=== PATIENT | male | born 1940 | race Caucasian/White ===

== ENCOUNTER → 2024-05-14 | Outpatient (CLI) | payer MEDICARE, BC, OTHER, SELFPAY ==
[2024-05-14 11:26] LABS: Collection Type, Urine Clean Catch; Squamous Epithelial Cell,Urine 0 /hpf (0-5)
[2024-05-14 13:09] LABS: Bacteria,Urine 4+; Bilirubin,Urine Negative (Negative); Blood,Urine 1+ (Negative); Color,Urine Yellow (Lt Yel-Yel); Glucose, Urine Negative (Negative); Ketones,Urine Negative (Negative); Leukocyte Esterase,Urine Positive (Negative); Nitrite,Urine Negative (Negative); Protein,Urine 1+ (Neg - Trace); RBC,Urine 30 /hpf (0-3); Specific Gravity,Urine 1.021 (1.001-1.035); Urobilinogen,Urine Negative mg/dL (0.0-1.0); WBC,Urine 911 /hpf (0-5)
[2024-05-14 13:19] LABS: Clarity,Urine Cloudy (Clear/Hazy)
== END | disposition home or self-care (01) ==
LOC: SLDO 11:12
PROVIDERS: PCP Physician Assistant; Referring Provider Physician Assistant; Visit Provider Physician Assistant
DX: N39.0 Urinary tract infection, site not specified (principal)
CPT/HCPCS: 81001; 87077; 87086; 87186

== ENCOUNTER 2024-06-05 00:06 | Inpatient (IN) | payer MEDICARE, BC, OTHER, SELFPAY ==
[2024-06-05] VITALS (19 sets, daily range): BP systolic 112–132; BP diastolic 56–89; PULSE 65–106; RESP 15–19; TEMP 36.3–37.5; O2SAT 94–98; BMI 29.8
--- NOTE | 2024-06-05 01:34 | PD.EDLOWEX ---
Lower Extremity Injury RME/HPI General Chief Complaint: Extremity Injury, Lower Stated Complaint: rt leg swelling Time Seen by Provider: 06/05/24 01:32 Arrival date/time: 06/05/24 00:06 RME / HPI RME / HPI Narrative: Dr. Burns?s Main ED Evaluation: 83yo male with pmhx dementia, CVA, HTN, HLD BIBA from home presents to the ED for a chief complaint of BLE swelling. Patient's states the patient has a history of swelling to his BLE, but reports it's significantly gotten worse over the last 24 hours. She states the patient has had a dry cough x 1 week. She notes the home health nurse came in yesterday and shared concerns over his symptoms, so she called the patient's PCP and was told to have the patient come in for evaluation. denies any fever, chills, shortness of breath, sweating or any other associated symptoms. Patient is on Plavix, and takes Lasix every other day. Related Data Home Medications ?Medication ?Instructions ?Recorded ?Confirmed cyanocobalamin (vitamin B-12) 500 1,000 mcg PO QDAY 08/30/21 06/05/24 mcg tablet folic acid 1 mg tablet 1 mg PO QDAY 08/30/21 06/05/24 levothyroxine 50 mcg tablet 50 mcg PO QDAY 08/30/21 06/05/24 amlodipine 5 mg tablet 5 mg PO QMORNING 06/05/24 06/05/24 Previous Rx's ?Medication ?Instructions ?Recorded apixaban 5 mg (74 tabs) tablets in 5 mg PO BID #74 tabs 06/10/24 a dose pack (Eliquis DVT-PE Treat 30D Start) atorvastatin 40 mg tablet 40 mg PO HS #30 tabs 06/10/24 clopidogrel 75 mg tablet (Plavix) 75 mg PO QDAY #30 tabs 06/10/24 furosemide 20 mg tablet (Lasix) 20 mg PO QDAY #30 tabs 06/10/24 hydralazine 25 mg tablet 25 mg PO BID #30 tabs 06/10/24 potassium chloride 8 mEq 8 meq PO QDAY 30 days #30 caps 06/10/24 capsule,extended release Allergies Allergy/AdvReac Type Severity Reaction Status Date / Time horseradish Allergy Severe Anaphylaxis Verified 06/09/23 11:16 phytonadione (vitamin K1) AdvReac Severe SEVERE Verified 06/09/23 11:16 BLEEDING warfarin AdvReac Severe SEVERE Verified 06/09/23 11:16 BLEEDING Review of Systems Review of Systems Systems Reviewed: All systems reviewed, normal except as documented Narrative Review of Systems: Gen: No fever, no chills, no weight loss EYES: No discharge, no visual changes, no pain HEENT: No ear pain, no congestion, no sore throat PULM: No shortness of breath, + cough, no congestion CV: No chest pain, no dyspnea on exertion, no palpitations GI: No nausea, no vomiting, no diarrhea, no pain, no constipation : No frequency, no urgency, no dysuria Musc/skel: No joint pain, no back pain, + BLE swelling Skin: No rash Psyc: No hallucinations, no depression Heme/Lymph: No easy bleeding or bruising tendencies Neuro: No weakness, no headache Past Medical History Past Medical History NEUROLOGIC: Positive Neurological Disorders, Cerebrovascular Accident and Dementia CARDIAC: Positive Hypercholesterolemia, Deep Vein Thrombosis and Hypertension; Negative Cardiac Disorders or Congestive Heart Failure RESPIRATORY: Negative Chronic Obstructive Pulmonary Disease (COPD) or Asthma GASTROINTESTINAL: Positive Gastrointestinal Disorders and 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) GENITOURINARY: Negative Renal Disease ENDOCRINE: Negative Diabetes Mellitus Type 1 or Diabetes Mellitus Type 2 HEMATOLOGIC: Negative Sickle Cell Disease OTHER HISTORY: Negative Anesthesia Reactions Surgical History SURGICAL: Positive Gastric Bypass Surgery Social History SMOKING STATUS: Unknown if ever smoked SUBSTANCE USE: does not use ED Exam Narrative Physical exam: GENERAL APPEARANCE: alert and oriented x 4, well-developed, well-nourished, no acute distress HEENT: Normocephalic, atraumatic; pupils equal, round, reactive to light; EOMI; mucous membranes pink, moist; oropharynx clear NECK: Supple LUNGS: upper airway noise; no wheezes, no rales, no rhonchi HEART: Regular rate, regular rhythm; normal S1, S2; no murmurs ABDOMEN: non distended; normal BS; soft, no tenderness, no guarding, no rebound; no masses, no organomegaly, no hernia BACK: no CVA tenderness EXTREMITIES: atraumatic; 3+ pitting edema R>L; no erythema, tenderness or increased warmth NEUROLOGIC: awake; alert and oriented x4; cranial nerves II-XII grossly intact; no focal sensory or motor deficits PSYCHIATRIC: appropriate mood and affect SKIN: warm, dry, normal color; no rashes Course Course Course Narrative: CXR is ordered for determining the etiology of cough. 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 Care 06/05/24 02:13 Completed EKG (ED ONLY) *Do not use* NOW Care 06/05/24 02:13 Completed EKG (ED Only) Stat Exams 06/05/24 02:13 Draft US venous doppler LE BI Stat Exams 06/05/24 02:15 Completed XR chest 1V portable Stat Exams 06/05/24 02:13 Completed B-Type Natriuretic Peptide Stat Lab 06/05/24 02:52 Completed CBC Stat Lab 06/05/24 02:52 Completed Comprehensive Metabolic Panel Stat Lab 06/05/24 02:52 Completed Lipase Stat Lab 06/05/24 02:52 Completed Magnesium Stat Lab 06/05/24 02:52 Completed Partial Thromboplastin Time Stat Lab 06/05/24 02:52 Completed Prothrombin Time with INR Stat Lab 06/05/24 02:52 Completed Troponin I Stat Lab 06/05/24 02:52 Completed KCL 10% Liq UDC 15 ML Med 06/05/24 04:04 Discontinued 40 meq PO X1 ONE Vital Signs Vital signs: Vital Signs Temperature 98.9 F 06/05/24 00:16 Pulse Rate 69 06/05/24 00:16 Respiratory Rate 18 06/05/24 00:16 Blood Pressure 132/61 H 06/05/24 00:16 Pulse Oximetry (%) 96 06/05/24 00:16 Oxygen Delivery Method Room Air 06/05/24 00:16 Pulse ox is 96% on room air, which is normal according to my interpretation. Extremity Injury, Lower MDM Narrative MDM Narrative:: Scribe Attestation: 06/05/24 Valarie Borja am scribing for and in the presence of Dr. Burns. Patient data External records reviewed:: [facility] previous records (Per chart review, patient was seen here on 04/26/24 for a UTI.) Clinical information provided by:: spouse Social determinants that could affect healthcare access:: none Patient has the following chronic illnesses:: dementia, CVA, HTN, HLD How is presenting disease/condition affected by chronic disease/condition?: uneffected by Evaluation data The following diagnostics were reviewed and interpreted by me:: lab results, radiology exam(s) and EKG tracing(s) Lab and/or radiology exams considered but not ordered:: none Interpretation Summary: WBC count is normal, HnH is stable, PT and INR are normal, PTT is normal, Potassium is slightly low at 3.2, Troponin is normal, BNP is normal, according to my interpretation. CXR is rotated and shows mild interstitial infiltrates on the right, according to my interpretation. EKG done at 0249, aFib, rate of 71, occasional PVC, significant artifact, Q wave in lead III and V1, no acute ischemic changes, according to my interpretation. --------- Telerad Preliminary Report Draft Patient: ILEANA OROZCO. Record#: [id number] Birthdate: 1940 Age/Sex: 83 / M Location: [facility] Attending Dr: Ordering Physician: Date of Service: Procedure(s): Accession Number(s): cc: ~ Bilateral lower extremity venous Doppler ultrasound with wave Doppler spectral analysis. June 05, 2024 at 0325 hours Clinical history: Swelling. Technique: Duplex scan of the bilateral lower extremity deep venous systems was performed utilizing 2D grayscale imaging, Doppler spectral analysis and color flow Doppler and with compression. Comparison: No prior study is available for comparison. Findings: Mcnulty scale, color flow and spectral Doppler evaluation of the lower extremity deep veins was performed. Right: Occlusive thrombus extending from the common femoral vein through the superficial femoral vein and popliteal vein. Left: Occlusive thrombus extending through the common femoral vein, superficial femoral vein, and popliteal vein. Impression: Extensive bilateral deep vein thrombosis. Discussion Details: Results verbally communicated to : Dr Burns at 04:06 AM 06/05/2024 Report Electronically Signed By: Mando Valderrama 06/05/2024 4:27:23 AM [EST] Medications / Prescriptions Medications or Prescriptions considered but not ordered:: none Medication administrations:: Medication Administration History Discontinued Medications Acetaminophen (Acetaminophen 325 Mg Tablet) 650 mg PO Q6H PRN PRN Reason: Fever >101.5 Stop: 07/05/24 04:35 Albuterol/Ipratropium (Albuterol/Ipratropium (Duoneb) Rt [place] 3 Ml Nebu) 3 ml INH Q8HRRT NIRAV Stop: 07/05/24 15:44 Last Admin: 06/05/24 16:26 Dose: Not Given Documented By: VL Non-Admin Reason: Discontinued Albuterol/Ipratropium (Albuterol/Ipratropium (Duoneb) Rt [place] 3 Ml Nebu) 3 ml INH X1 ONE Stop: 06/05/24 16:02 Last Admin: 06/05/24 16:17 Dose: 3 ml Documented By: RG Albuterol/Ipratropium (Albuterol/Ipratropium (Duoneb) Rt [place] 3 Ml Nebu) 3 ml INH Q8HRRT NIRAV Stop: 07/05/24 21:59 Albuterol/Ipratropium (Albuterol/Ipratropium (Duoneb) Rt [place] 3 Ml Nebu) 3 ml INH Q8HRRT NIRAV Stop: 07/05/24 22:59 Last Admin: 06/10/24 14:59 Dose: 3 ml Documented By: Admin: 06/10/24 06:19 Dose: 3 ml Documented By: Admin: 06/09/24 22:45 Dose: 3 ml Documented By: Admin: 06/09/24 14:31 Dose: 3 ml Documented By: Admin: 06/09/24 06:23 Dose: 3 ml Documented By: Admin: 06/08/24 23:29 Dose: 3 ml Documented By: Admin: 06/08/24 14:30 Dose: 3 ml Documented By: Admin: 06/08/24 06:39 Dose: 3 ml Documented By: Admin: 06/07/24 23:16 Dose: 3 ml Documented By: Admin: 06/07/24 15:55 Dose: 3 ml Documented By: Admin: 06/07/24 06:55 Dose: 3 ml Documented By: Admin: 06/06/24 23:14 Dose: 3 ml Documented By: Admin: 06/06/24 14:42 Dose: 3 ml Documented By: Admin: 06/06/24 06:50 Dose: 3 ml Documented By: Admin: 06/05/24 22:15 Dose: 3 ml Documented By: VONDA Amlodipine Besylate (Amlodipine Besylate 5 Mg Tablet) 5 mg PO QAM [facility] Stop: 07/07/24 10:14 Last Admin: 06/10/24 08:28 Dose: 5 mg Documented By: Admin: 06/09/24 07:54 Dose: 5 mg Documented By: Admin: 06/08/24 08:00 Dose: 5 mg Documented By: Admin: 06/07/24 13:23 Dose: 5 mg Documented By: MGAlma Apixaban (Apixaban 2.5 Mg Tablet) 10 mg PO BID NIRAV Stop: 06/11/24 21:01 Last Admin: 06/06/24 08:27 Dose: 10 mg Documented By: Admin: 06/05/24 20:33 Dose: 10 mg Documented By: Admin: 06/05/24 08:22 Dose: 10 mg Documented By: KAROL Apixaban (Apixaban 2.5 Mg Tablet) 10 mg PO BID NIRAV Stop: 06/16/24 21:01 Last Admin: 06/10/24 14:29 Dose: 10 mg Documented By: FL Atorvastatin Calcium (Atorvastatin Calcium 20 Mg Tablet) 40 mg PO QPM NIRAV Stop: 07/07/24 20:59 Last Admin: 06/09/24 20:14 Dose: 40 mg Documented By: Admin: 06/08/24 20:51 Dose: 40 mg Documented By: Admin: 06/07/24 20:03 Dose: 40 mg Documented By: STEFF Carvedilol (Carvedilol 3.125 Mg Tablet) 6.25 mg PO BIDWM NIRAV Stop: 07/05/24 07:59 Last Admin: 06/05/24 08:27 Dose: Not Given Documented By: KAROL Non-Admin Reason: Discontinued Clopidogrel Bisulfate (Clopidogrel Bisulfate 75 Mg Tablet) 75 mg PO QDAY NIRAV Stop: 07/06/24 08:59 Last Admin: 06/06/24 08:28 Dose: 75 mg Documented By: LUCIAN Clopidogrel Bisulfate (Clopidogrel Bisulfate 75 Mg Tablet) 75 mg PO QDAY NIRAV Stop: 07/08/24 08:59 Last Admin: 06/10/24 08:29 Dose: 75 mg Documented By: Admin: 06/09/24 07:54 Dose: 75 mg Documented By: Admin: 06/08/24 10:01 Dose: 75 mg Documented By: ELIZABETH Donepezil HCl (Donepezil Hcl 5 Mg Tablet) 5 mg PO HS NIRAV Stop: 07/05/24 20:59 Last Admin: 06/08/24 20:51 Dose: 5 mg Documented By: Admin: 06/07/24 20:04 Dose: 5 mg Documented By: Admin: 06/06/24 20:41 Dose: 5 mg Documented By: Admin: 06/05/24 20:33 Dose: 5 mg Documented By: MUNIR Folic Acid (Folic Acid 1 Mg Tablet) 1 mg PO QDAY NIRAV Stop: 07/05/24 08:59 Last Admin: 06/10/24 08:29 Dose: 1 mg Documented By: Admin: 06/09/24 07:54 Dose: 1 mg Documented By: Admin: 06/08/24 08:00 Dose: 1 mg Documented By: Admin: 06/07/24 13:23 Dose: 1 mg Documented By: Admin: 06/06/24 08:28 Dose: 1 mg Documented By: Admin: 06/05/24 08:23 Dose: 1 mg Documented By: KAROL Furosemide (Furosemide Inj 10 Mg/Ml 4ml Vial) 40 mg IVP QDAY NIRAV Stop: 07/05/24 08:59 Furosemide (Furosemide 40 Mg Tablet) 20 mg PO Q48H NIRAV Stop: 07/06/24 08:29 Furosemide (Furosemide Inj 10 Mg/Ml Vial 2 Ml) 20 mg IVP QDAY NIRAV Stop: 07/05/24 09:59 Last Admin: 06/07/24 08:23 Dose: 20 mg Documented By: MGAlma Admin: 06/06/24 08:28 Dose: 20 mg Documented By: Admin: 06/05/24 11:00 Dose: 20 mg Documented By: KAROL Furosemide (Furosemide Inj 10 Mg/Ml Vial 2 Ml) 40 mg IVP QDAY NIRAV Stop: 07/08/24 08:59 Last Admin: 06/10/24 08:27 Dose: 40 mg Documented By: Admin: 06/09/24 07:55 Dose: 40 mg Documented By: Admin: 06/08/24 08:00 Dose: 40 mg Documented By: ELIZABETH Furosemide (Furosemide Inj 10 Mg/Ml Vial 2 Ml) 20 mg IVP X1 ONE Stop: 06/07/24 14:46 Last Admin: 06/07/24 15:30 Dose: 20 mg Documented By: MGAlma Furosemide (Furosemide Inj 10 Mg/Ml 4ml Vial) 40 mg IVP QDAY NIRAV Stop: 07/08/24 08:59 Heparin Sodium (Porcine) (Heparin Sod Inj 5000 Unit/Ml Vial) 8,000 unit IV X1 ONE; Protocol Stop: 06/06/24 13:45 Last Admin: 06/06/24 15:06 Dose: 8,000 unit Documented By: LUCIAN Co-signed By: ELIZABETH Hydralazine HCl (Hydralazine Hcl 25 Mg Tablet) 25 mg PO BID NIRAV Stop: 07/07/24 10:14 Last Admin: 06/10/24 08:29 Dose: 25 mg Documented By: Admin: 06/09/24 20:14 Dose: 25 mg Documented By: Admin: 06/09/24 07:54 Dose: 25 mg Documented By: Admin: 06/08/24 20:51 Dose: 25 mg Documented By: Admin: 06/08/24 08:00 Dose: 25 mg Documented By: Admin: 06/07/24 20:03 Dose: 25 mg Documented By: Admin: 06/07/24 13:22 Dose: 25 mg Documented By: MGAlma Potassium Chloride (Kcl Ivpb) 10 meq in 100 mls @ 100 mls/hr IV Q1H [facility] Stop: 06/05/24 06:57 Last Infusion: 06/05/24 07:29 Dose: Infused Documented By: Admin: 06/05/24 06:29 Dose: 100 mls/hr Documented By: Infusion: 06/05/24 06:15 Dose: Infused Documented By: Admin: 06/05/24 05:15 Dose: 100 mls/hr Documented By: MUNDO Magnesium Sulfate (Magnesium Sulfate Ivpb) 2 gm in 50 mls @ 25 mls/hr IV X1 ONE Stop: 06/06/24 10:01 Last Admin: 06/06/24 08:34 Dose: 25 mls/hr Documented By: LUCIAN Heparin Sodium/Dextrose (Heparin In D5w Ivpb) 25,000 unit in 250 mls @ 18.01 mls/hr IV .[id number] [facility]; Protocol Stop: 06/20/24 13:44 Last Admin: 06/10/24 11:49 Dose: 11.76 units/kg/hr, 11.899 mls/hr Documented By: FL Co-signed By: CS Infusion: 06/10/24 11:49 Dose: Infused Documented By: FL Co-signed By: CS Admin: 06/09/24 14:57 Dose: 11.76 units/kg/hr, 11.899 mls/hr Documented By: KD Co-signed By: CB Infusion: 06/09/24 12:09 Dose: Infused Documented By: NEIDA Co-signed By: ELIZABETH Admin: 06/08/24 20:59 Dose: Not Given Documented By: STACY Non-Admin Reason: heparin infusing Admin: 06/08/24 15:08 Dose: 11.76 units/kg/hr, 11.899 mls/hr Documented By: ELIZABETH Co-signed By: LH Infusion: 06/08/24 10:07 Dose: Infused Documented By: ELIZABETH Co-signed By: LH Infusion: 06/07/24 20:00 Dose: 11.76 units/kg/hr, 11.899 mls/hr Documented By: STEFF Co-signed By: Admin: 06/07/24 13:06 Dose: 11.76 units/kg/hr, 11.9 mls/hr Documented By: KAREL Co-signed By: JRR Infusion: 06/07/24 07:19 Dose: Infused Documented By: MGD Co-signed By: BF Infusion: 06/06/24 23:40 Dose: 14.8 units/kg/hr, 14.974 mls/hr Documented By: STACY Co-signed By: CG Admin: 06/06/24 15:09 Dose: 17.8 units/kg/hr, 18.01 mls/hr Documented By: LUCIAN Co-signed By: ELIZABETH Alteplase, Recombinant 4 mg/ (Sodium Chloride) 80 mls @ 14 mls/hr IV .Q5H43M NIRAV Stop: 06/07/24 17:12 Last Admin: 06/07/24 12:32 Dose: 0.7 mg/hr, 14 mls/hr Documented By: EC Alteplase, Recombinant 4 mg/ (Sodium Chloride) 80 mls @ 12 mls/hr IV .Q6H40M NIRAV Stop: 06/07/24 18:08 Last Admin: 06/07/24 12:24 Dose: 0.6 mg/hr, 12 mls/hr Documented By: EC Alteplase, Recombinant 4 mg/ (Sodium Chloride/ Sterile Water) 80 mls @ 14 mls/hr IV .Q5H43M NIRAV Stop: 06/10/24 11:29 Alteplase, Recombinant 4 mg/ (Sodium Chloride/ Sterile Water) 80 mls @ 12 mls/hr IV .Q6H40M [facility] Stop: 06/10/24 11:28 Alteplase, Recombinant 4 mg/ (Sodium Chloride/ Sterile Water) 80 mls @ 14 mls/hr IV .Q5H43M [facility] Stop: 06/10/24 11:29 Last Admin: 06/10/24 12:48 Dose: Not Given Documented By: FL Non-Admin Reason: MEDICATION IS DISCONTINUED Admin: 06/10/24 06:31 Dose: 0.7 mg/hr, 14 mls/hr Documented By: Infusion: 06/10/24 05:31 Dose: Infused Documented By: Admin: 06/09/24 23:48 Dose: 0.7 mg/hr, 14 mls/hr Documented By: Infusion: 06/09/24 22:05 Dose: Infused Documented By: Admin: 06/09/24 16:22 Dose: 0.7 mg/hr, 14 mls/hr Documented By: Infusion: 06/09/24 15:52 Dose: Infused Documented By: Admin: 06/09/24 10:09 Dose: 0.7 mg/hr, 14 mls/hr Documented By: Infusion: 06/09/24 10:09 Dose: Infused Documented By: Admin: 06/09/24 06:20 Dose: 0.7 mg/hr, 14 mls/hr Documented By: Infusion: 06/09/24 05:37 Dose: Infused Documented By: Admin: 06/08/24 23:54 Dose: 0.7 mg/hr, 14 mls/hr Documented By: Infusion: 06/08/24 22:22 Dose: Infused Documented By: Admin: 06/08/24 16:39 Dose: 0.7 mg/hr, 14 mls/hr Documented By: Infusion: 06/08/24 15:51 Dose: Infused Documented By: Admin: 06/08/24 10:08 Dose: 0.7 mg/hr, 14 mls/hr Documented By: Infusion: 06/08/24 10:08 Dose: Infused Documented By: Admin: 06/08/24 06:23 Dose: 0.7 mg/hr, 14 mls/hr Documented By: Infusion: 06/08/24 05:53 Dose: Infused Documented By: Admin: 06/08/24 00:10 Dose: 0.7 mg/hr, 14 mls/hr Documented By: Infusion: 06/07/24 23:19 Dose: Infused Documented By: Admin: 06/07/24 17:36 Dose: 0.7 mg/hr, 14 mls/hr Documented By: MGD Alteplase, Recombinant 4 mg/ (Sodium Chloride/ Sterile Water) 80 mls @ 12 mls/hr IV .Q6H40M NIRAV Stop: 06/10/24 11:28 Last Admin: 06/10/24 09:07 Dose: 0.6 mg/hr, 12 mls/hr Documented By: Infusion: 06/10/24 07:34 Dose: Infused Documented By: Admin: 06/10/24 00:53 Dose: 0.6 mg/hr, 12 mls/hr Documented By: Infusion: 06/09/24 23:03 Dose: Infused Documented By: Admin: 06/09/24 16:22 Dose: 0.6 mg/hr, 12 mls/hr Documented By: Infusion: 06/09/24 16:22 Dose: Infused Documented By: Admin: 06/09/24 10:09 Dose: 0.6 mg/hr, 12 mls/hr Documented By: Infusion: 06/09/24 10:09 Dose: Infused Documented By: Admin: 06/09/24 04:17 Dose: 0.6 mg/hr, 12 mls/hr Documented By: Infusion: 06/09/24 04:03 Dose: Infused Documented By: Admin: 06/08/24 21:22 Dose: 0.6 mg/hr, 12 mls/hr Documented By: Infusion: 06/08/24 21:22 Dose: Infused Documented By: Admin: 06/08/24 15:09 Dose: 0.6 mg/hr, 12 mls/hr Documented By: Infusion: 06/08/24 14:38 Dose: Infused Documented By: Admin: 06/08/24 07:57 Dose: 0.6 mg/hr, 12 mls/hr Documented By: Infusion: 06/08/24 07:35 Dose: Infused Documented By: Admin: 06/08/24 00:54 Dose: 0.6 mg/hr, 12 mls/hr Documented By: Infusion: 06/08/24 00:18 Dose: Infused Documented By: Admin: 06/07/24 17:37 Dose: 0.6 mg/hr, 12 mls/hr Documented By: KAREL Magnesium Sulfate (Magnesium Sulfate Ivpb) 2 gm in 50 mls @ 25 mls/hr IV X1 ONE Stop: 06/09/24 17:21 Last Admin: 06/09/24 16:22 Dose: 25 mls/hr Documented By: ELIZABETH Levothyroxine Sodium (Levothyroxine Sodium 25 Mcg Tablet) 50 mcg PO ACBR NIRAV Stop: 07/05/24 05:59 Last Admin: 06/10/24 05:26 Dose: 50 mcg Documented By: Admin: 06/09/24 05:02 Dose: 50 mcg Documented By: Admin: 06/08/24 05:39 Dose: 50 mcg Documented By: Admin: 06/07/24 05:41 Dose: 50 mcg Documented By: Admin: 06/06/24 05:23 Dose: 50 mcg Documented By: Admin: 06/05/24 05:25 Dose: 50 mcg Documented By: MUNDO Potassium Chloride (Potassium Chloride 10% 20 Meq/15 Ml Udc) 40 meq PO X1 ONE Stop: 06/05/24 04:05 Last Admin: 06/05/24 04:48 Dose: 40 meq Documented By: MUNDO Potassium Chloride (Potassium Chloride 20 Meq Tabcr) 40 meq PO X1 ONE Stop: 06/05/24 04:42 Last Admin: 06/05/24 04:48 Dose: Not Given Documented By: SF Non-Admin Reason: Discontinued Potassium Chloride (Potassium Chloride 20 Meq Tabcr) 20 meq PO WBR NIRAV Stop: 07/05/24 07:59 Last Admin: 06/10/24 08:29 Dose: 20 meq Documented By: Admin: 06/09/24 07:54 Dose: 20 meq Documented By: Admin: 06/08/24 07:58 Dose: 20 meq Documented By: Admin: 06/07/24 13:22 Dose: 20 meq Documented By: Admin: 06/06/24 08:27 Dose: 20 meq Documented By: Admin: 06/05/24 05:35 Dose: Not Given Documented By: SF Non-Admin Reason: Cancelled by Provider Potassium Chloride (Potassium Chloride 20 Meq Tabcr) 40 meq PO X1 ONE Stop: 06/06/24 10:01 Last Admin: 06/06/24 10:49 Dose: Not Given Documented By: EA Non-Admin Reason: Patient Refused Potassium Chloride (Potassium Chloride 20 Meq Tabcr) 20 meq PO X1 ONE Stop: 06/08/24 08:21 Last Admin: 06/08/24 10:01 Dose: 20 meq Documented By: CB Potassium Chloride (Potassium Chloride 20 Meq Tabcr) 20 meq PO X1 ONE Stop: 06/09/24 19:01 Last Admin: 06/09/24 20:14 Dose: 20 meq Documented By: CM Potassium Chloride (Potassium Chloride 20 Meq Tabcr) 40 meq PO X1 ONE Stop: 06/09/24 15:22 Last Admin: 06/09/24 16:23 Dose: 40 meq Documented By: CB Potassium Chloride (Potassium Chloride 10% 20 Meq/15 Ml Udc) 40 meq PO X1 ONE Stop: 06/10/24 08:18 Last Admin: 06/10/24 08:28 Dose: 40 meq Documented By: FL Potassium Chloride (Potassium Chloride 10% 20 Meq/15 Ml Udc) 20 meq PO X1 ONE Stop: 06/10/24 11:01 Last Admin: 06/10/24 11:50 Dose: 20 meq Documented By: FL Sennosides (Senna Tablet) 1 tab PO QDAY PRN; Protocol PRN Reason: CONSTIPATION Stop: 07/05/24 05:31 see above, if any Consultations Consultation(s) initiated? (list below): Yes Consultation #1 (Physician, Specialty, Details): Discussed case with [Dr. Mcdowell] from Hospitalist service regarding admission. Discussed patients ED course, exam findings, labs, and radiology results. The Hospitalist [agrees] to accept the patient for admission. Time: 04:16 Diagnosis Extremity Injury, Lower Differential Diagnosis: other (CHF, DVT, dependent edema) Most likely diagnosis given after review of the tests above:: see below Admission Indicated Admission indicated?: indicated Admission Request Was there a request for admission?: Yes Admission Attestation Admission request attestation: Discussed case with [] from Hospitalist service regarding admission. Discussed patients ED course, exam findings, labs, and radiology results. The Hospitalist [agrees,declines] to accept the patient for admission. Disposition Plan Disposition Plan: Admit Discharge Plan Plan Patient Disposition: Admit Acute Care w/in Hospital Patient condition on transfer: Stable Problem List Clinical Impression: DVT of lower extremity, bilateral
--- NOTE | 2024-06-05 02:13 | EKG_ITS ---
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
--- NOTE | 2024-06-05 02:13 | XR_ITS ---
Examination: AP chest single view Technique one AP portable semiupright chest single view Exam date and time: June 05, 2024 0228 hours Comparison 03/12/2024 INDICATIONS: Onset chest pain today FINDINGS: Atelectasis and/or early pneumonia left base Mild prominence left ventricle Ectatic thoracic aorta Prominent osteopenia IMPRESSION: Atelectasis and/or early pneumonia left base, clinical correlation advised
--- NOTE | 2024-06-05 02:15 | XR_ITS ---
Examination: Venous duplex lower extremity sonogram, bilateral. Date and time of exam: June 05, 2024 0325 hours INDICATIONS: Bilateral leg swelling beginning 2 days ago Technique: Multiple sonographic images of the deep venous system have been obtained. B-mode/2-D grayscale imaging of vascular structures and Doppler spectral analysis (waveforms) and color performed Both legs are examined. Findings: Positive for extensive bilateral deep vein thrombus Positive for acute thrombus in the right common femoral right superficial femoral right popliteal veins Positive for acute thrombus in the left common femoral left superficial femoral left popliteal veins IMPRESSION: Extensive bilateral acute deep vein thrombus
[2024-06-05 03:08] LABS: Basophils % (Auto) 1 % (0-2.5); Eosinophils # (Auto) 0.1 Thou/mm3 (0.0-0.5); Eosinophils % (Auto) 2 % (0-10); Hematocrit 30.6 % (41.0-53.0); Hemoglobin 9.9 g/dL (13.5-16.0); Immature Granulocytes % (Auto) 0 % (0-0); Immature Granulocytes Auto 0.01 Thou/mm3 (0.00-0.00); Lymphocytes # (Auto) 1.5 Thou/mm3 (1.0-4.8); Lymphocytes % (Auto) 28 % (10-50); Mean Corpuscular HGB Conc 32.4 g/dl (31.0-37.0); Mean Corpuscular Hemoglobin 26.3 pg (25.0-35.0); Mean Corpuscular Volume 81 fL (80-100); Monocytes # (Auto) 0.4 Thou/mm3 (0.0-0.8); Monocytes % (Auto) 7 % (0-12); Neutrophils # (Auto) 3.4 Thou/mm3 (1.8-7.7); Neutrophils % (Auto) 63 % (37-80); Nucleated Red Blood Cell % 0 /100 WBC (0); Platelet Count 300 Thou/mm3 (140-440); RDW Standard Deviation 52.4 fL (35.1-43.9); Red Blood Count 3.77 Miln/mm3 (4.50-5.90); White Blood Count 5.4 Thou/mm3 (3.8-10.6)
[2024-06-05 03:25] LABS: INR 1.1 (0.9-1.3); Partial Thromboplastin Time 28.7 Seconds (22.0-36.0); Prothrombin Time 11.7 Seconds (9.0-12.2)
[2024-06-05 03:27] LABS: B-Type Natriuretic Peptide 51 pg/mL (0-100)
[2024-06-05 03:28] LABS: Alanine Aminotransferase 13 U/L (10-49); Albumin, Serum 3.4 gm/dL (3.4-4.8); Albumin/Globulin Ratio 1.4 (1.2-2.2); Alkaline Phosphatase 85 U/L (46-116); Anion Gap 7 (7-16); Aspartate Amino Transferase 14 U/L (0-34); BUN/Creatinine Ratio 11 Ratio (12-20); Bilirubin,Total 0.6 mg/dL (0.3-1.2); Blood Urea Nitrogen 11 mg/dL (9-23); Calcium 8.8 mg/dL (8.3-10.6); Calcium (Corrected) 9.3 mg/dL (8.5-10.1); Carbon Dioxide 27.2 mMol/L (20.0-31.0); Chloride 106 mMol/L (98-107); Estimated Creatinine Clearance 66.1 mL/min (>60); Globulin 2.4 gm/dL (2.3-3.5); Glucose 103 mg/dL (74-106); Lipase 50 U/L (12-53); Osmolality,Calculated 278 (275-295); Potassium 3.2 mMol/L (3.4-5.1); Sodium 140 mMol/L (136-145); Total Protein 5.8 gm/dL (5.7-8.2); Troponin I < 0.020 ng/mL (0.0-0.045); eGFR > 60 See Note
--- NOTE | 2024-06-05 04:28 | PRELIM_ITS ---
Bilateral lower extremity venous Doppler ultrasound with wave Doppler spectral analysis. June 05, 2024 at 0325 hours Clinical history: Swelling. Technique: Duplex scan of the bilateral lower extremi ty deep venous systems was performed utilizing 2D grayscale imaging, Doppler spectral analysis and co alicia flow Doppler and with compression. Comparison: No prior study is available for comparison. Findi ngs:Mcnulty scale, color flow and spectral Doppler evaluation of the lower extremity deep veins was perf ormed.Right: Occlusive thrombus extending from the common femoral vein through the superficial femora l vein and popliteal vein.Left: Occlusive thrombus extending through the common femoral vein, superfi cial femoral vein, and popliteal vein.Impression:Extensive bilateral deep vein thrombosis.Discussion Details: Results verbally communicated to : Dr Burns at 04:06 AM 06/05/2024 Report Electronically Signed By: Mando Valderrama 06/05/2024 4:27:23 AM [EST]
[2024-06-05] MEDS: POTASSIUM CHLORIDE 10% 20 MEQ/15 ML UDC 40 MEQ PO (04:48)
--- NOTE | 2024-06-05 04:55 | EVENTNT_ITS ---
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 He presented to the emergency department with a 2-day history of worsening bilateral leg swelling. His noted that the swelling significantly worsened between 7:30 PM and 10:00 PM on the day of presentation. She contacted the patient?s primary care physician, who recommended evaluation in the emergency department. The patient has a history of extensive DVT, initially diagnosed 20+ years ago, at which time he was started on anticoagulation therapy. An IVC filter was placed around 2009 and remains in situ. The patient was previously on Eliquis, which was discontinued approximately a year ago due to concerns related to his aortic aneurysm. Since then, he has been maintained on Plavix, which appears to be insufficient in preventing recurrent thrombotic events. The patient also experiences intermittent dyspnea, which his attributes to mild heart failure. He takes Lasix at home every other day, with the last dose administered this morning. He has been using a Gallagher catheter since February 2024 due to urinary retention following a prior stroke. The patient denies chest pain but demonstrates signs of functional decline, including limited mobility and cognitive impairment. He can walk with assistance but has become increasingly weak due to recurrent hospitalizations and the burden of his chronic conditions. In the emergency department, his vital signs were as follows: blood pressure 132/91 mmHg, temperature 98.9?F, heart rate 69 bpm, and respiratory rate 18 breaths per minute. Laboratory tests revealed a hemoglobin level of 9.9 g/dL and a potassium level of 3.2 mmol/L. A DVT ultrasound showed extensive bilateral DVT. The patient will be admitted for further observation and management.
--- NOTE | 2024-06-05 04:58 | ESHP_ITS ---
Documentation for date of: 06/05/24 HPI History of Present Illness Chief complaint: Lower extremity swelling History of present illness: 83-year-old male patient with past medical history for dementia, atrial fibrillation, CVA, uncontrolled hypertension, history of multiple DVT s/p IVC filter, hypothyroidism, BPH was brought to ED for bilateral lower extremity swelling. 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 Per patient's , patient has been having lower extremity swelling for the past 2 days; as result, patient's PCP was called who requested the patient be seen in the emergency room. Per patient's , he is able to ambulate about 100 feet using a walker for assistance; however, he has been bedbound recently. Of note, patient was admitted sometime in October 2023 with episode of syncope; however, workup was largely negative. At that time, EEG just showed dementia pattern but no seizure activity. CT imaging studies identified ascending, thoracic aortic aneurysm measuring 4.7 cm, and the patient was told to follow-up outpatient with cardiology; last ECHO states it currently measures 3.7cm. Patient also has a Gallagher catheter prior to presenting to the emergency room; it was placed secondary to chronic urinary retention. Medical history: As stated above Surgical history: Heel spur, neck surgery Allergies: Horseradish causes anaphylaxis, phytonadione, warfarin cause severe bleeding Medications: Pending med rec Family history: Noncontributory Social history: Patient currently lives with his who is also his senior quantity surveyor; denies alcohol, smoking or illicit drug use ROS: Unable to assess as the patient has dementia In the ED, patient presented mildly hypertensive 132/61, heart rate 69, respiratory rate 18, afebrile satting 96 on room air. Pertinent lab findings included hemoglobin 9.9 (MCV 81), potassium 3.2, troponin within normal limits, BNP 51, lipase 50. EKG shows atrial fibrillation with SVR. Chest x-ray does not show any signs of acute pneumonia but there is some interstitial markings on the right lower lung field continue. Venous Doppler study shows extensive severe bilateral DVT. Patient will be admitted to monitor for DVT progression and started on Eliquis anticoagulation; will also be given IV diuretics for heart failure exacerbation. Exam Vital Signs Temp Pulse Resp BP Pulse Ox O2 Del Method 98.9 F 80 16 122/65 95 Room Air 06/05/24 00:16 06/05/24 03:03 06/05/24 03:00 06/05/24 03:00 06/05/24 03:00 06/05/24 03:00 Narrative Exam Physical Exam: GENERAL: Awake, not answering questions appropriately, answers with yes or no but usually no answer, appears stated age. HEENT: NC/AT. Moist mucosa. PERRLA/EOMI. CARDIO: Irregularly irregular, no obvious murmurs, no JVD. PULM: No coughing or visible SOB. Lungs CTA B/L upper airway rhonci. GI: Abdomen soft, NT/ND, +BS. URO/REAL ESTATE REP: +Gallagher catheter. SKIN/MSK/EXT: +2 pitting edema noted up to hips bilaterally. Lower extremities grossly edematous. No wounds/rashes/amputations noted. +Pedal pulses present B/L. NEURO: Oriented x0 2/2 dementia (patient could not answer name, place or purpose). Results: Labs 06/05/24 02:52 06/05/24 02:52 Labs: Short CBC 06/05/24 Range/Units 02:52 WBC 5.4 (3.8-10.6) Thou/mm3 Hgb 9.9 L (13.5-16.0) g/dL Hct 30.6 L (41.0-53.0) % Plt Count 300 (140-440) Thou/mm3 BMP 06/05/24 02:52 Sodium 140 Potassium 3.2 L Chloride 106 Carbon Dioxide 27.2 BUN 11 Creatinine 1.0 Glucose 103 Calcium 8.8 Cardiac Enzymes 06/05/24 Range/Units 02:52 Troponin I < 0.020 (0.0-0.045) ng/mL Liver Function 06/05/24 Range/Units 02:52 Total Bilirubin 0.6 (0.3-1.2) mg/dL AST 14 (0-34) U/L ALT 13 (10-49) U/L Alkaline Phosphatase 85 (46-116) U/L Albumin 3.4 (3.4-4.8) gm/dL Quality Measures Quality Measures none Advance care planning discussed with:: spouse Medications Home Medications and Allergies Home Medications ?Medication ?Instructions ?Recorded ?Confirmed ?Type atorvastatin 80 mg tablet 40 mg PO QPM 08/30/21 11/07/22 History cyanocobalamin (vitamin B-12) 500 1,000 mcg PO QDAY 08/30/21 11/07/22 History mcg tablet donepezil 5 mg tablet 2.5 mg PO QDAY 08/30/21 11/07/22 History folic acid 1 mg tablet 1 mg PO QDAY 08/30/21 11/07/22 History levothyroxine 50 mcg tablet 50 mcg PO QDAY 08/30/21 11/07/22 History valsartan 320 mg tablet 160 mg PO BID 08/30/21 11/07/22 History quetiapine 25 mg tablet (Seroquel) 25 mg PO Q12HR 11/07/22 11/07/22 History Allergies Allergy/AdvReac Type Severity Reaction Status Date / Time horseradish Allergy Severe Anaphylaxis Verified 06/09/23 11:16 phytonadione (vitamin K1) AdvReac Severe SEVERE Verified 06/09/23 11:16 BLEEDING warfarin AdvReac Severe SEVERE Verified 06/09/23 11:16 BLEEDING Visit Medications Acetaminophen (Acetaminophen 325 Mg Tablet) 650 mg PO Q6H PRN PRN Reason: Fever >101.5 Stop: 07/05/24 04:35 Apixaban (Apixaban 2.5 Mg Tablet) 10 mg PO BID NIRAV Stop: 06/11/24 21:01 Carvedilol (Carvedilol 3.125 Mg Tablet) 6.25 mg PO BIDWM NIRAV Stop: 07/05/24 07:59 Donepezil HCl (Donepezil Hcl 5 Mg Tablet) 5 mg PO HS NIRAV Stop: 07/05/24 20:59 Folic Acid (Folic Acid 1 Mg Tablet) 1 mg PO QDAY NIRAV Stop: 07/05/24 08:59 Furosemide (Furosemide Inj 10 Mg/Ml 4ml Vial) 40 mg IVP QDAY NIRAV Stop: 07/05/24 08:59 Levothyroxine Sodium (Levothyroxine Sodium 25 Mcg Tablet) 50 mcg PO ACBR NIRAV Stop: 07/05/24 05:59 Potassium Chloride (Potassium Chloride 20 Meq Tabcr) 20 meq PO WBR NIRAV Stop: 07/05/24 07:59 Discontinued Medications Potassium Chloride (Potassium Chloride 10% 20 Meq/15 Ml Udc) 40 meq PO X1 ONE Stop: 06/05/24 04:05 Last Admin: 06/05/24 04:48 Dose: 40 meq Potassium Chloride (Potassium Chloride 20 Meq Tabcr) 40 meq PO X1 ONE Stop: 06/05/24 04:42 Last Admin: 06/05/24 04:48 Dose: Not Given Assessment & Plan Plan 83-year-old male patient with past medical history for dementia, atrial fibrillation, CVA, uncontrolled hypertension, history of multiple DVT s/p IVC filter, hypothyroidism, BPH was brought to ED for bilateral lower extremity swelling will be admitted to monitor for DVT progression and started on Eliquis anticoagulation; will also be given IV diuretics for heart failure exacerbation. #Extensive Bilateral DVT #History of DVT s/p IVC filter Patient has hx of DVT in the past as noted above Presenting with two days of worsening lower extremity edema per On exam patient has grossly edematous bilateral lower extremities Dopple U/S of lower extremities confirms presence of severe b/l DVT Plan: Started patient on Eliquis 10mg po qday (eGFR >60 and weight >99.7kg - no contraindications) Tele monitor #Fluid Overloaded #Diastolic Heart Failure Exacerbation #Ascending Aorta Aneurysm Patient presenting with b/l lower extremity swelling likely 2/2 to both DVT and possible HF exacerbation +2 pitting edema up to b/l hips noted on exam Last ECHO from 03/12/24 shows: Normal LV size and function. Stage I diastolic dysfunction. Estimated EF 55-60% Normal RV size and function The acending aorta is mildly dilated. 3.7cm. Trace MR, TR. 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 Mcintyre outpatient who started patient on Plavix 75mg po qday and Lasix 20mg po qday Pending Med rec from who was not bedside during examination Plan: Restarted Coreg home dose 6.25mg po bid Restarted Levothyroxine home dose 50mcg po qday Hospital Management: Lines - PIV and Gallagher Diet - Cardiac Bowel - Senna prn Gi prophylaxis - not needed DVT prophylaxis - on Eliquis Dispo - Monitoring for DVT progression, tele monitoring for afib and IV diuretics for possible HF exacerbation Code - Full Patient seen and examined with attending Dr. Mcdowell and senior resident Dr. Modesta Pacheco, PGY-1 Attending Provider Attestation/Addendum Pt was evaluated and plan formulated together with the housestaff team. I have reviewed the residents note above and agree with most of its content. Please refer to the residents note for additional details.
[2024-06-05] MEDS: POTASSIUM CHL 10 mEq IVPB 10 MEQ/100 ML BAG 100 MEQ IV ×2 (05:15→06:29)
[2024-06-05] MEDS: LEVOTHYROXINE SODIUM 25 MCG TABLET 50 MCG PO (05:25)
[2024-06-05] MEDS: APIXABAN 2.5 MG TABLET 10 MG PO ×2 (08:22→20:33)
[2024-06-05] MEDS: FOLIC ACID 1 MG TABLET PO (08:23)
--- NOTE | 2024-06-05 10:12 | PC.NURSE ---
Spoke to patient's over the phone to complete past medical history and vaccination history for patient. I let know I already updated patient's home medication and updated Dr on her request to discontinue Carvedilol. Also let her know patient already received morning dose of eliquis po. asked if Dr Valladares had already been in to see patient. I let her know Dr Valladares does not round on patient's in this hospital. I explained patient is assigned to a team of [facility] here at the hospital. was very upset and said no one ever explained how the system worked in the hospital, she said I don't want a stranger putting their hands on my , I don't trust anybody there! was under the impression her would be under Dr Valladares's care during this hospitalization. said she would be calling Dr Valladares herself to come in and check on her . I updated Dr Horowitz at bedside along with team. Team will call and update her on care.
[2024-06-05 10:16] LABS: Magnesium 1.9 mg/dL (1.6-2.6); Phosphorous 3.6 mg/dL (2.4-5.1)
[2024-06-05] MEDS: FUROSEMIDE INJ 10 MG/ML VIAL 2 ML 20 MG IVP (11:00)
--- NOTE | 2024-06-05 11:20 | ESPR_ITS ---
<Statement entered by Caesar Garcia MD - 06/05/24 14:35> Patient was seen and examined at bedside. This patient 83-year-old male with past medical history of dementia, A-fib, CVA, uncontrolled hypertension, history of multiple DVTs s/p IVC filter, hypothyroidism and BPH admitted for extensive bilateral DVT seen on Doppler lower extremity. He was started on Eliquis 10 mg twice daily and was started on his heart failure medications. He is demented however is conversational and responsive to the questions. He had marked lower extremity swelling and pain. Patient has a history of IVC filter placed for recurrent DVTs. We started him on IV Lasix 20 mg. Will curbside with neurology regarding Plavix continuation along with Eliquis as patient was taking Plavix for CVA. Electrolytes were repleted. All labs and orders were reviewed. I saw and examined the patient, and I agree with current management stated by Dr Matt MD,PGY1. Plan of care was discussed with the attending physician and resident physician. Disclaimer: Despite multiple revisions, due to the dictation software being used, the document bellow may not be free of grammatical errors including phonetic/typographic errors. However, this does not deter from our commitment to providing health care in the patient's best interest in mind. Dr. Radha MD, PGY 2 Documentation for date of: 06/05/24 Subjective Subjective Interval history: Patient seen and examined telemetry this a.m. Patient no overnight events Patient repeats the word good to any questions asked Venous Doppler was significant for bilateral lower limb DVTs and patient was started on apixaban 10 Mg p.o. twice daily EKG was significant for atrial fibrillation with rate 71, no acute ST elevation or depression. K3.2 and Mg 2. Patient repleted with KCl 80 mEq p.o. x 1 and magnesium sulfate 2 g IV x 1 Exam Vital Signs Temp Pulse Resp BP Pulse Ox O2 Del Method 97.7 F 85 18 122/68 94 L Room Air 06/05/24 07:46 06/05/24 11:00 06/05/24 07:46 06/05/24 11:00 06/05/24 07:46 06/05/24 07:46 Narrative Exam Physical Exam: GENERAL: Awake, not answering questions appropriately, answers with yes or no but usually no answer, appears stated age. HEENT: NC/AT. Moist mucosa. PERRLA/EOMI. CARDIO: Irregularly irregular, no obvious murmurs, no JVD. PULM: No coughing or visible SOB. Lungs CTA B/L upper airway transmitted sounds GI: Abdomen soft, NT/ND, +BS. 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 SKIN/MSK/EXT: +2 pitting edema noted up to hips bilaterally. Lower extremities grossly edematous. No wounds/rashes/amputations noted. +Pedal pulses present B/L. NEURO: Oriented x0 2/2 dementia (patient could not answer name, place or purpose). Left-sided hemiplegia. Power 1/5 LLL, power 2/5 ZOILA, power 3/5 RLL, power 4/5 RUL Objective Labs 06/06/24 05:08 06/06/24 05:08 Labs: Laboratory Results - last 24 hr 06/05/24 06/05/24 02:52 02:58 WBC 5.4 RBC 3.77 L Hgb 9.9 L Hct 30.6 L MCV 81 MCH 26.3 MCHC 32.4 RDW Std Deviation 52.4 H Plt Count 300 Neut % (Auto) 63 Lymph % (Auto) 28 [place] % (Auto) 7 Eos % (Auto) 2 Baso % (Auto) 1 Neut # (Auto) 3.4 Lymph # (Auto) 1.5 [place] # (Auto) 0.4 Eos # (Auto) 0.1 Baso # (Auto) 0.0 Immature Gran # (Auto) 0.01 H Absolute Nucleated RBC 0.00 Immature Gran % 0 Nucleated RBC % 0 PT 11.7 INR 1.1 APTT 28.7 Sodium 140 Potassium 3.2 L Chloride 106 Carbon Dioxide 27.2 Anion Gap 7 BUN 11 Creatinine 1.0 Estim Creat Clear Calc 66.1 eGFR > 60 BUN/Creatinine Ratio 11 L Glucose 103 Calculated Osmolality 278 Calcium 8.8 Corrected Calcium 9.3 Phosphorus 3.6 Magnesium 2.0 1.9 Total Bilirubin 0.6 AST 14 ALT 13 Alkaline Phosphatase 85 Troponin I < 0.020 B-Natriuretic Peptide 51 Total Protein 5.8 Albumin 3.4 Globulin 2.4 Albumin/Globulin Ratio 1.4 Lipase 50 Quality Measures Quality Measures none Advance care planning discussed with:: other Assessment & Plan Assessment Current Active Medications: Generic Name Dose Route Start Last Admin Trade Name Freq PRN Reason Stop Dose Admin Acetaminophen 650 mg 06/05/24 04:36 Acetaminophen 325 Mg Tablet PO 07/05/24 04:35 Q6H PRN Fever >101.5 Apixaban 10 mg 06/05/24 09:00 06/05/24 08:22 Apixaban 2.5 Mg Tablet PO 06/11/24 21:01 10 mg BID NIRAV Administration Donepezil HCl 5 mg 06/05/24 21:00 Donepezil Hcl 5 Mg Tablet PO 07/05/24 20:59 HS NIRAV Folic Acid 1 mg 06/05/24 09:00 06/05/24 08:23 Folic Acid 1 Mg Tablet PO 07/05/24 08:59 1 mg QDAY NIRAV Administration Furosemide 20 mg 06/05/24 10:00 06/05/24 11:00 Furosemide Inj 10 Mg/Ml Vial 2 Ml IVP 07/05/24 09:59 20 mg QDAY NIRAV Administration Levothyroxine Sodium 50 mcg 06/05/24 06:00 06/05/24 05:25 Levothyroxine Sodium 25 Mcg Tablet PO 07/05/24 05:59 50 mcg ACBR NIRAV Administration Potassium Chloride 20 meq 06/05/24 08:00 06/05/24 05:35 Potassium Chloride 20 Meq Tabcr PO 07/05/24 07:59 Not Given WBR NIRAV Sennosides 1 tab 06/05/24 05:32 Senna Tablet PO 07/05/24 05:31 QDAY PRN CONSTIPATION Protocol Plan 3-year-old male patient with past medical history for dementia, atrial fibrillation, CVA, uncontrolled hypertension, history of multiple DVT s/p IVC filter, hypothyroidism, BPH was brought to ED for bilateral lower extremity swelling will be admitted to monitor for DVT progression and started on Eliquis anticoagulation; will also be given IV diuretics for heart failure exacerbation. #Extensive Bilateral DVT #History of DVT s/p IVC filter #Chronic lower extremity venous insufficiency Patient has hx of DVT in the past with [place]C [place] [address] Kelly. Presenting with two days of worsening lower extremity edema per On exam patient has grossly edematous bilateral lower extremities Doppler U/S of lower extremities confirms presence of severe b/l DVT According to patient's in 2016 at [facility] he had IV sclerotherapy with venous stripping of the lower extremity varicose veins bilaterally. Plan: ?Continue Eliquis 10mg po qday (eGFR >60 and weight >99.7kg - no contraindications) ?Tele monitor ? Will consider possible vascular consult tomorrow for evaluation for possible thrombectomy # Acute on chronic diastolic Heart Failure Exacerbation [EF 55-60% #Ascending Aorta Aneurysm Patient presenting with b/l lower extremity swelling likely 2/2 to both DVT and possible HF exacerbation +2 pitting edema up to b/l hips noted on exam Last ECHO from 03/12/24 shows: Normal LV size and function. Stage I diastolic dysfunction. Estimated EF 55-60% Normal RV size and function The acending aorta is mildly dilated. 3.7cm. Trace MR, TR. Plan: ? Strict input output charting ? Daily weights ? 2G sodium restricted diet ? 1500 cc fluid restriction ? Discontinued Lasix 40 Mg IV daily and started on Lasix 20 Mg IV daily ? Follow-up outpatient for AAA monitoring #Atrial Fibrillation, SVR CHADVASc score of 6 (Age >85, hypertension, CVA, vascular disease) Patient has one prior EKG from February showing atrial fibrillation Currently presenting with irregular heart rate but with SVR Plan: ? Patient on anticoagulation with Eliquis ? 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 Mcintyre outpatient who started patient on Plavix 75mg po qday and Lasix 20mg po every other day Patient's states that after his first 2 strokes in 2000 in 2015 he had no functional or memory deficits. However after his stroke in February 2024 he was left bedbound with severe dysarthria. Plan: ? Continue levothyroxine home dose 50mcg po qday ? Restarted home medication Plavix 75 Mg p.o. daily for stroke prophylaxis Health maintenance: Disposition: On apixaban for extensive B/L lower extremity DVT Diet: Cardiac Lines: pIVs GI Prophylaxis: None Thrombo Prophylaxis: Apixaban Code status: FULL CODE Plan of care discussed with Attending Dr. Horowitz and PGY2 Dr. Radha Gutierrez MD PGY 1 Attending Provider Attestation/Addendum I have discussed and was present for the essential components of the history, physical examination, diagnosis, and treatment plan with the resident. I agree with the patient's care as documented by the resident and amended herein by me. Kiko Horowitz, DO. Although this document has been carefully reviewed, there may still be some phonetic and other typographical errors. These errors are purely grammatical due to imperfections in the software program and should not be construed in any way to compromise the substance of the patient's medical care during this visit.
--- NOTE | 2024-06-05 11:51 | PC.SS ---
Patient Diony Nelson is a 83 Year old male admitted for DVT. SS spoke to patient's , Eduarda Nelson in order to complete initial assessment. Patient resides at home with who is patients medical decision maker [phone]. Patient's patient has Dementia. Patient utilizes as FWW to assist with ambulation. Patient's choice of pharmacy is [facility]. PCP is Mary Kate Valladares. Patient's reports patient was being followed by Katie BOLTON and would like for Katie to continue to follow patient. At time of discharge patient will return back home. Patient's will provide transportation. Next of Kin: , Eduarda Nelson Discharge plan: Home with Katie BOLTON
[2024-06-05 15:02] LABS: Potassium 3.5 mMol/L (3.4-5.1)
[2024-06-05] MEDS: ALBUTEROL/IPRATROPIUM (Duoneb) RT SOL 3 ML NEBU INH ×2 (16:17→22:15)
[2024-06-05] MEDS: DONEPEZIL HCL 5 MG TABLET PO (20:33)
[2024-06-06] VITALS (10 sets, daily range): BP systolic 109–140; BP diastolic 54–76; PULSE 61–89; RESP 17–21; TEMP 36.2–37.6; O2SAT 92–97; BMI 30.2; BMI 12.0
[2024-06-06] MEDS: LEVOTHYROXINE SODIUM 25 MCG TABLET 50 MCG PO (05:23)
[2024-06-06 05:36] LABS: Basophils % (Auto) 1 % (0-2.5); Eosinophils # (Auto) 0.1 Thou/mm3 (0.0-0.5); Eosinophils % (Auto) 1 % (0-10); Hematocrit 26.9 % (41.0-53.0); Immature Granulocytes % (Auto) 0 % (0-0); Immature Granulocytes Auto 0.01 Thou/mm3 (0.00-0.00); Lymphocytes # (Auto) 1.7 Thou/mm3 (1.0-4.8); Lymphocytes % (Auto) 35 % (10-50); Mean Corpuscular HGB Conc 31.6 g/dl (31.0-37.0); Mean Corpuscular Hemoglobin 25.7 pg (25.0-35.0); Mean Corpuscular Volume 81 fL (80-100); Monocytes # (Auto) 0.3 Thou/mm3 (0.0-0.8); Monocytes % (Auto) 6 % (0-12); Neutrophils # (Auto) 2.8 Thou/mm3 (1.8-7.7); Neutrophils % (Auto) 57 % (37-80); Nucleated Red Blood Cell % 0 /100 WBC (0); Platelet Count 289 Thou/mm3 (140-440); RDW Standard Deviation 52.4 fL (35.1-43.9); Red Blood Count 3.31 Miln/mm3 (4.50-5.90); White Blood Count 4.9 Thou/mm3 (3.8-10.6)
[2024-06-06 05:41] LABS: Hemoglobin 8.5 g/dL (13.5-16.0)
[2024-06-06 06:13] LABS: Anion Gap 6 (7-16); BUN/Creatinine Ratio 13 Ratio (12-20); Blood Urea Nitrogen 14 mg/dL (9-23); Calcium 8.2 mg/dL (8.3-10.6); Chloride 105 mMol/L (98-107); Creatinine (Component) 1.1 mg/dL (0.6-1.3); Estimated Creatinine Clearance 60.1 mL/min (>60); Glucose 91 mg/dL (74-106); Magnesium 1.8 mg/dL (1.6-2.6); Osmolality,Calculated 278 (275-295); Phosphorous 3.2 mg/dL (2.4-5.1); Potassium 3.5 mMol/L (3.4-5.1); Sodium 139 mMol/L (136-145); eGFR > 60 See Note
[2024-06-06] MEDS: ALBUTEROL/IPRATROPIUM (Duoneb) RT SOL 3 ML NEBU INH ×3 (06:50→23:14)
[2024-06-06 08:27] LABS: Albumin, Serum 3.2 gm/dL (3.4-4.8)
[2024-06-06] MEDS: APIXABAN 2.5 MG TABLET 10 MG PO (08:27)
[2024-06-06] MEDS: POTASSIUM CHLORIDE 20 mEq TABCR PO (08:27)
[2024-06-06] MEDS: CLOPIDOGREL BISULFATE 75 MG TABLET PO (08:28)
[2024-06-06] MEDS: FUROSEMIDE INJ 10 MG/ML VIAL 2 ML 20 MG IVP (08:28)
[2024-06-06] MEDS: FOLIC ACID 1 MG TABLET PO (08:28)
--- NOTE | 2024-06-06 08:30 | PD.RESPRO ---
Documentation for date of: 06/06/24 Exam Vital Signs Temp Pulse Resp BP Pulse Ox O2 Del Method 97.2 F 75 18 114/54 L 92 L Room Air 06/06/24 08:00 06/06/24 08:00 06/06/24 08:00 06/06/24 08:00 06/06/24 08:00 06/06/24 08:00 Objective Labs 06/06/24 05:08 06/06/24 05:08 Labs: Laboratory Results - last 24 hr 06/05/24 06/05/24 06/06/24 02:58 14:10 05:08 WBC 4.9 RBC 3.31 L Hgb 8.5 L Hct 26.9 L MCV 81 MCH 25.7 MCHC 31.6 RDW Std Deviation 52.4 H Plt Count 289 Neut % (Auto) 57 Lymph % (Auto) 35 [place] % (Auto) 6 Eos % (Auto) 1 Baso % (Auto) 1 Neut # (Auto) 2.8 Lymph # (Auto) 1.7 [place] # (Auto) 0.3 Eos # (Auto) 0.1 Baso # (Auto) 0.0 Immature Gran # (Auto) 0.01 H Absolute Nucleated RBC 0.00 Immature Gran % 0 Nucleated RBC % 0 Sodium 139 Potassium 3.5 3.5 Chloride 105 Carbon Dioxide 28.0 Anion Gap 6 L BUN 14 Creatinine 1.1 Estim Creat Clear Calc 60.1 L eGFR > 60 BUN/Creatinine Ratio 13 Glucose 91 Calculated Osmolality 278 Calcium 8.2 L Phosphorus 3.6 3.2 Magnesium 1.9 1.8 Albumin 3.2 L Quality Measures Quality Measures none Assessment & Plan Assessment Current Active Medications: Generic Name Dose Route Start Last Admin Trade Name Freq PRN Reason Stop Dose Admin Acetaminophen 650 mg 06/05/24 04:36 Acetaminophen 325 Mg Tablet PO 07/05/24 04:35 Q6H PRN Fever >101.5 Albuterol/Ipratropium 3 ml 06/05/24 23:00 06/06/24 06:50 Albuterol/Ipratropium (Duoneb) Rt [place] 3 Ml Nebu INH 07/05/24 22:59 3 ml Q8HRRT NIRAV Administration Apixaban 10 mg 06/05/24 09:00 06/05/24 20:33 Apixaban 2.5 Mg Tablet PO 06/11/24 21:01 10 mg BID NIRAV Administration Clopidogrel Bisulfate 75 mg 06/06/24 09:00 Clopidogrel Bisulfate 75 Mg Tablet PO 07/06/24 08:59 QDAY NIRAV Donepezil HCl 5 mg 06/05/24 21:00 06/05/24 20:33 Donepezil Hcl 5 Mg Tablet PO 07/05/24 20:59 5 mg HS NIRAV Administration Folic Acid 1 mg 06/05/24 09:00 06/05/24 08:23 Folic Acid 1 Mg Tablet PO 07/05/24 08:59 1 mg QDAY NIRAV Administration Furosemide 20 mg 06/05/24 10:00 06/05/24 11:00 Furosemide Inj 10 Mg/Ml Vial 2 Ml IVP 07/05/24 09:59 20 mg QDAY NIRAV Administration Magnesium Sulfate 2 gm in 50 mls @ 25 mls/hr 06/06/24 08:02 Magnesium Sulfate Ivpb IV 06/06/24 10:01 X1 ONE Levothyroxine Sodium 50 mcg 06/05/24 06:00 06/06/24 05:23 Levothyroxine Sodium 25 Mcg Tablet PO 07/05/24 05:59 50 mcg ACBR NIRAV Administration Potassium Chloride 20 meq 06/05/24 08:00 06/05/24 05:35 Potassium Chloride 20 Meq Tabcr PO 07/05/24 07:59 Not Given WBR NIRAV Potassium Chloride 40 meq 06/06/24 10:00 Potassium Chloride 20 Meq Tabcr PO 06/06/24 10:01 X1 ONE Sennosides 1 tab 06/05/24 05:32 Senna Tablet PO 07/05/24 05:31 QDAY PRN CONSTIPATION Protocol
[2024-06-06] MEDS: Magnesium Sulfate 2 GM Ivpb 2 GM/50 ML BAG IV (08:34)
--- NOTE | 2024-06-06 10:15 | ESDS_ITS ---
<Statement entered by Caesar Garcia MD - 06/06/24 13:53> Patient was seen and examined at the bedside today. Patient appears to be alert and oriented at baseline. He continues to have bilateral lower extremity swelling. We curb sided with vascular surgeon Dr. Ji, and he recommended that the patient needs IR guided catheter-based thrombolysis for bilateral lower extremities peripheral arterial disease and will need transfer to facility where this procedure can be performed. Transfer nurse was updated regarding the plan and currently we are working on transferring the patient out to [facility] for IR guided catheter-based thrombolysis. We switched to heparin drip from eliquis for bilateral extensive DVT lower extremities due to possible intervention plan upon transfer. Continue with Plavix for now and can likely be hold before procedure at [facility]. 40 mEq KCl was repleted x 1. All labs and orders were reviewed. I saw and examined the patient, and I agree with current management stated by Dr Matt MD,PGY1. Plan of care was discussed with the attending physician and resident physician. Disclaimer: Despite multiple revisions, due to the dictation software being used, the document bellow may not be free of grammatical errors including phonetic/typographic errors. However, this does not deter from our commitment to providing health care in the patient's best interest in mind. Dr. Radha MD, PGY 2 Planned Discharge Date 06/06/24 DS: Providers Provider Date of admission: 06/05/24 04:36 Primary care physician: Mary Kate Valladares MD Admitting Provider: Irvin Mcdowell MD Attending Provider on Admission: Martínez Horowitz DO Consults: 06/05/24 05:33 Referral Physical Therapy Routine Comment: Physician Instructions: Attending Provider on DC: Chao Gutierrez MD Discharging Provider: Chao Gutierrez MD DS: Diagnosis Problem List Completed Was Problem List Reviewed/Reconciled?: Yes Hospital Course Hospital Course Hospital course: Patient is an 83-year-old male past medical history significant for dementia, essential hypertension, atrial fibrillation?long-term persistent not on rate control anticoagulation with Eliquis, 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 Was brought in by ambulance due to progressively worsening lower extremity swelling over 1 day as noticed by his . Patient was admitted for treatment and management of acute B/L lower extremity DVT and acute on chronic diastolic heart failure exacerbation. Patient had a previous Doppler done on 06/09/2023 which was negative for DVT. On this admission Venous Doppler study completed on 06/05/2024 findings include: Positive for extensive bilateral deep vein thrombus Positive for acute thrombus in the right common femoral right superficial femoral right popliteal veins Positive for acute thrombus in the left common femoral left superficial femoral left popliteal veins. For his extensive B/L lower extremity DVT, patient was started on apixaban 10 Mg p.o. twice daily, subsequently transition to heparin infusion and Dr. Ji, vascular surgeon was curb sided He said there is no vascular surgery for this. He needs catheter directed thrombolysis by interventional radiology. This is not available at [facility]. The closest hospital is [facility] in [place]. Transfer nurse was contacted and the transfer was initiated. For the acute on chronic diastolic heart failure exacerbation [EF 55-60%] Last ECHO from 03/12/24 shows: Normal LV size and function. Stage I diastolic dysfunction. Estimated EF 55-60% Normal RV size and function The acending aorta is mildly dilated. 3.7cm. Trace MR, TR. Patient's home diuretic was Lasix 20 Mg p.o. every other day. On this admission he was started on Lasix 20 Mg IV daily and KCl 20 mEq p.o. every morning for his exacerbation. For his history of CVAs patient was on Plavix 75 Mg p.o. daily for stroke prophylaxis. His home medication was resumed alongside with apixaban therapeutic dose. Pending discussion with accepting At transfer facility to guide on either continuing or discontinuing either Plavix or apixaban or both prior to transfer. For his long-term persistent atrial fibrillation patient currently not on any beta-blockers or rate control medication as he has a history of symptomatic bradycardia in the past. All patient's labs on within his normal limits. Patient's , Eduarda, updated on the events for today and the pending transfer to [facility] for interventional radiology catheter directed thrombolysis. She is grateful for the update and all questions and concerns were addressed. Patient is clinically stable and fit for transfer to tertiary center. Discharge diagnoses: 1. Extensive bilateral lower extremity DVT?acute 2. History of DVTs s/p IVC filter [2009] 3. Chronic lower extremity venous insufficiency 4. Acute on chronic diastolic heart failure exacerbation [EF 55 to 60%] 5. Ascending aorta aneurysm 6. Atrial fibrillation, NVR?long-term persistent not on rate control 7. Dementia?chronic 8. Essential hypertension 9. History of CVA 2000, 2015, February 2024 [cerebellar stroke] 10. Hypothyroidism 11. BPH Discharge plan: ? On heparin infusion for DVT ? Currently on Lasix 20 Mg IV daily ? Currently on KCl 20 mEq p.o. every morning ? Currently on Plavix 75 Mg p.o. daily ? On donepezil 5 Mg p.o. at bedtime, home medication ? On levothyroxine 50 mcg p.o. AC BR, home medication. ? Pending transfer to tertiary center for catheter directed thrombolysis by interventional radiology. Pending discussion with accepting About if to discontinue Plavix prior to procedure. We are grateful to be able to participate in Mr. Nelson's care. We wish him the best. Plan of care discussed with Attending Dr. Horowitz and PGY2 Dr. Radha Gutierrez MD PGY 1 Time Spent with Patient Time attestation: Total time spent providing and/or coordinating discharge services: Time spent: Greater than 30 minutes (35) Exam Vital Signs Temp Pulse Resp BP Pulse Ox O2 Del Method 97.2 F 82 18 109/62 92 L Room Air 06/06/24 08:00 06/06/24 08:28 06/06/24 08:00 06/06/24 08:28 06/06/24 08:00 06/06/24 08:00 Narrative Exam Physical Exam: GENERAL: Awake, not answering questions appropriately, answers with yes or no but usually no answer, appears stated age. HEENT: NC/AT. Moist mucosa. PERRLA/EOMI. CARDIO: Irregularly irregular, no obvious murmurs, no JVD. PULM: No coughing or visible SOB. Lungs CTA B/L upper airway transmitted sounds GI: Abdomen soft, NT/ND, +BS. URO/HEAT TREAT TECHNICIAN: +Gallagher catheter. SKIN/MSK/EXT: +2 pitting edema noted up to hips bilaterally. Lower extremities grossly edematous., Hyperpigmented over shins B/L, no wounds/rashes/amputations noted. +Pedal pulses present B/L. NEURO: Oriented x0 2/2 dementia (patient could not answer name, place or purpose). Left-sided hemiplegia. Power 1/5 LLL, power 2/5 ZOILA, power 3/5 RLL, power 4/5 RUL Discharge Plan Plan Patient Disposition: Home w/HOME HEALTH Patient condition on transfer: Stable Care Plan Goals: Take Plavix 75 mg once daily, start Eliquis starter pack based on instructions with 10 mg twice daily for 7 days and then 5 mg twice daily for 3 months Take Lasix 20 mg every day with KCl 8 mEq and hold Lasix if blood pressure drops below 100/60 mmHg Track your weight every day and if you gain 2-3 pounds he can take an extra dose of Lasix 20 mg Recommended fluid restriction up to 5066-0581 mL every day Take amlodipine 5 mg, atorvastatin 40 mg, folic acid 1 mg once daily, levothyroxine 50 mcg once a day and hydralazine 25 mg twice daily Follow-up with PCP as outpatient within 2 weeks Follow up with your Urologist as outpatient within 2 weeks In case of emergency, call 911 or come back to the ED Patient will discharge to home Prescriptions/Referrals Prescriptions/Med Rec: New Eliquis DVT-PE Treat 30D Start 5 mg (74 tabs) tablets,dose pack 5 mg PO BID Qty: 74 0RF clopidogrel [Plavix] 75 mg tablet 75 mg PO QDAY Qty: 30 0RF atorvastatin 40 mg tablet 40 mg PO HS Qty: 30 0RF furosemide [Lasix] 20 mg tablet 20 mg PO QDAY Qty: 30 0RF potassium chloride 8 mEq capsule, extended release 8 meq PO QDAY 30 Days Qty: 30 0RF Continued cyanocobalamin (vitamin B-12) 500 mcg Tablet 1,000 mcg PO QDAY levothyroxine 50 mcg Tablet 50 mcg PO QDAY folic acid 1 mg Tablet 1 mg PO QDAY amlodipine 5 mg tablet 5 mg PO QMORNING Changed hydralazine 25 mg tablet 25 mg PO BID Qty: 30 0RF Discontinued atorvastatin 80 mg Tablet 40 mg PO QPM donepezil 5 mg Tablet 2.5 mg PO QPM furosemide [Lasix] 40 mg tablet 40 mg PO EVERYOTHERDAY Referrals: Mary Kate Valladares MD [Primary Care Provider] - Patient/Caregiver Discharge Instructions Education Materials: Understanding Deep Vein Thrombosis, ED Deep Vein Thrombosis (DVT) Print Language: Malagasy Stand Alone Forms: [employer] Award Info., Patient Portal Info Letter Discharge Order Discharge Orders: Discharge (Routine); Ordered 06/10/24 Ordered By: Caesar Garcia Quality Discharge Quality Measures VTE therapy MD Attestestation MD Attestation I have discussed and was present for the essential components of the discharge h istory, physical examination, diagnosis, and discharge treatment plan with the resident. I agree with the patient's discharge care as documented by the resident and amended herein by me. Kiko Horowitz DO. The patient understood all discharge instructions, all questions were answered satisfactorily. The patient was instructed to return to the Emergency Department is symptoms worsened or persisted. Although this document has been carefully reviewed, there may still be some phonetic and other typographical errors. These errors are purely grammatical due to imperfections in the software program and should not be construed in any way to compromise the substance of the patient's medical care during this visit.
--- NOTE | 2024-06-06 10:49 | PC.CM ---
Addendum entered by Fina Hinkle RN 06/06/24 13:39: 1240 I called and left a message with the IR at [facility] asking for a call back. Addendum entered by Fina Hinkle RN 06/06/24 13:36: 1130 I contacted Kylie at the transfer center at [facility]. I let her know I am needing IR for thrombolysis for this patient. She states she would like me to contact the radiology scheduler at IR at [facility] phone # [phone]. Original Note: 1030 I received a referral to transfer patient for interventional radiology for IR guided catheter based thrombolysis for both lower extremities due to severe peripheral artery disease.
--- NOTE | 2024-06-06 11:23 | ESPR_ITS ---
<Statement entered by Caesar Garcia MD - 06/06/24 13:52> Patient was seen and examined at the bedside today. Patient appears to be alert and oriented at baseline. He continues to have bilateral lower extremity swelling. We curb sided with vascular surgeon Dr. Ji, and he recommended that the patient needs IR guided catheter-based thrombolysis for bilateral lower extremities peripheral arterial disease and will need transfer to facility where this procedure can be performed. Transfer nurse was updated regarding the plan and currently we are working on transferring the patient out to [facility] for IR guided catheter-based thrombolysis. We switched to heparin drip from eliquis for bilateral extensive DVT lower extremities due to possible intervention plan upon transfer. Continue with Plavix for now and can likely be hold before procedure at [facility]. All labs and orders were reviewed. I saw and examined the patient, and I agree with current management stated by Dr Matt MD,PGY1. Plan of care was discussed with the attending physician and resident physician. Disclaimer: Despite multiple revisions, due to the dictation software being used, the document bellow may not be free of grammatical errors including phonetic/typographic errors. However, this does not deter from our commitment to providing health care in the patient's best interest in mind. Dr. Radha MD, PGY 2 Documentation for date of: 06/06/24 Subjective Subjective Interval history: Patient seen and examined telemetry this a.m. Patient no overnight events Patient repeats the word good to any questions asked Dr. Ji, vascular surgeon was curb sided for B/L lower extremity DVT. He said there is no vascular surgery for this. He needs catheter directed thrombolysis by interventional radiology. This is not available at [facility]. The closest hospital is [facility] in [place]. Patient on apixaban 10 Mg p.o. twice daily for treatment of bilateral lower extremity DVT Currently on diuresis with Lasix 20 Mg IV daily Patient had fluid balance of -190 cc over the past 24 hours. K3.5 and Mg 1.8. Patient repleted with KCl 60 mEq p.o. and magnesium sulfate 2 g IV Patient's , Eduarda, updated on the events for today and the pending transfer to [facility] for interventional radiology catheter directed thrombolysis. She is grateful for the update and all questions and concerns were addressed. Exam Vital Signs Temp Pulse Resp BP Pulse Ox O2 Del Method 97.2 F 82 18 109/62 92 L Room Air 06/06/24 08:00 06/06/24 08:28 06/06/24 08:00 06/06/24 08:28 06/06/24 08:00 06/06/24 08:00 Narrative Exam Physical Exam: GENERAL: Awake, not answering questions appropriately, answers with yes or no but usually no answer, appears stated age. HEENT: NC/AT. Moist mucosa. PERRLA/EOMI. CARDIO: Irregularly irregular, no obvious murmurs, no JVD. PULM: No coughing or visible SOB. Lungs CTA B/L upper airway transmitted sounds GI: Abdomen soft, NT/ND, +BS. URO/FOREST ECONOMIST: +Gallagher catheter. SKIN/MSK/EXT: +2 pitting edema noted up to hips bilaterally. Lower extremities grossly edematous., Hyperpigmented over shins B/L, no wounds/rashes/amputations noted. +Pedal pulses present B/L. NEURO: Oriented x0 2/2 dementia (patient could not answer name, place or purpose). Left-sided hemiplegia. Power 1/5 LLL, power 2/5 ZOILA, power 3/5 RLL, power 4/5 RUL Objective Labs 06/06/24 05:08 06/06/24 05:08 Labs: Laboratory Results - last 24 hr 06/05/24 06/06/24 14:10 05:08 WBC 4.9 RBC 3.31 L Hgb 8.5 L Hct 26.9 L MCV 81 MCH 25.7 MCHC 31.6 RDW Std Deviation 52.4 H Plt Count 289 Neut % (Auto) 57 Lymph % (Auto) 35 Tillman % (Auto) 6 Eos % (Auto) 1 Baso % (Auto) 1 Neut # (Auto) 2.8 Lymph # (Auto) 1.7 Tillman # (Auto) 0.3 Eos # (Auto) 0.1 Baso # (Auto) 0.0 Immature Gran # (Auto) 0.01 H Absolute Nucleated RBC 0.00 Immature Gran % 0 Nucleated RBC % 0 Sodium 139 Potassium 3.5 3.5 Chloride 105 Carbon Dioxide 28.0 Anion Gap 6 L BUN 14 Creatinine 1.1 Estim Creat Clear Calc 60.1 L eGFR > 60 BUN/Creatinine Ratio 13 Glucose 91 Calculated Osmolality 278 Calcium 8.2 L Phosphorus 3.2 Magnesium 1.8 Albumin 3.2 L Quality Measures Quality Measures none Advance care planning discussed with:: spouse Assessment & Plan Assessment Current Active Medications: Generic Name Dose Route Start Last Admin Trade Name Freq PRN Reason Stop Dose Admin Acetaminophen 650 mg 06/05/24 04:36 Acetaminophen 325 Mg Tablet PO 07/05/24 04:35 Q6H PRN Fever >101.5 Albuterol/Ipratropium 3 ml 06/05/24 23:00 06/06/24 06:50 Albuterol/Ipratropium (Duoneb) Rt [place] 3 Ml Nebu INH 07/05/24 22:59 3 ml Q8HRRT NIRAV Administration Apixaban 10 mg 06/05/24 09:00 06/06/24 08:27 Apixaban 2.5 Mg Tablet PO 06/11/24 21:01 10 mg BID NIRAV Administration Clopidogrel Bisulfate 75 mg 06/06/24 09:00 06/06/24 08:28 Clopidogrel Bisulfate 75 Mg Tablet PO 07/06/24 08:59 75 mg QDAY NIRAV Administration Donepezil HCl 5 mg 06/05/24 21:00 06/05/24 20:33 Donepezil Hcl 5 Mg Tablet PO 07/05/24 20:59 5 mg HS NIRAV Administration Folic Acid 1 mg 06/05/24 09:00 06/06/24 08:28 Folic Acid 1 Mg Tablet PO 07/05/24 08:59 1 mg QDAY NIRAV Administration Furosemide 20 mg 06/05/24 10:00 06/06/24 08:28 Furosemide Inj 10 Mg/Ml Vial 2 Ml IVP 07/05/24 09:59 20 mg QDAY NIRAV Administration Levothyroxine Sodium 50 mcg 06/05/24 06:00 06/06/24 05:23 Levothyroxine Sodium 25 Mcg Tablet PO 07/05/24 05:59 50 mcg ACBR NIRAV Administration Potassium Chloride 20 meq 06/05/24 08:00 06/06/24 08:27 Potassium Chloride 20 Meq Tabcr PO 07/05/24 07:59 20 meq WBR NIRAV Administration Sennosides 1 tab 06/05/24 05:32 Senna Tablet PO 07/05/24 05:31 QDAY PRN CONSTIPATION Protocol Plan 83-year-old male patient with past medical history for dementia, atrial fibrillation, CVA, uncontrolled hypertension, history of multiple DVT s/p IVC filter, hypothyroidism, BPH was brought to ED for bilateral lower extremity swelling will be admitted to monitor for DVT progression and started on Eliquis anticoagulation; will also be given IV diuretics for heart failure exacerbation. #Extensive Bilateral Lower Extremity DVT?acute #History of DVT s/p IVC filter [2010] #Chronic lower extremity venous insufficiency Patient has hx of DVT in the past with [place]C [place] [address] [place]. Doppler U/S of lower extremities confirms presence of severe b/l DVT According to patient's in 2016 at [facility] he had IV sclerotherapy with venous stripping of the lower extremity varicose veins bilaterally. Patient's , Eduarda, updated on the events for today and the pending transfer to [facility] for interventional radiology catheter directed thrombolysis. She is grateful for the update and all questions and concerns were addressed. Plan: ? Discontinued Eliquis 10mg po twice daily ? Started on heparin infusion for DVT in anticipation for possible procedure ? Dr. Page, vascular surgeon was curb sided. He recommended patient would need catheter directed thrombolysis by interventional radiology. The closest hospital for this service is [facility] in [place]. ? Transfer nurse contacted and transfer initiated. # Acute on chronic diastolic Heart Failure Exacerbation [EF 55-60%] Patient presenting with b/l lower extremity swelling likely 2/2 to both DVT and possible HF exacerbation +2 pitting edema up to b/l hips noted on exam Last ECHO from 03/12/24 shows: Normal LV size and function. Stage I diastolic dysfunction. Estimated EF 55-60% Normal RV size and function The acending aorta is mildly dilated. 3.7cm. Trace MR, TR. Plan: ? Strict input output charting ? Daily weights ? 2G sodium restricted diet ? 1500 cc fluid restriction ? Continue Lasix 20 Mg IV daily ? Continue KCl 20 mEq p.o. every morning ? Follow-up outpatient for AAA monitoring #Ascending Aorta Aneurysm Last ECHO from 03/12/24 shows: Normal LV size and function. Stage I diastolic dysfunction. Estimated EF 55-60% Normal RV size and function The acending aorta is mildly dilated. 3.7cm. Trace MR, TR.] #Atrial Fibrillation, NVR?long-term persistent CHADVASc score of 6 (Age >85, hypertension, CVA, vascular disease) Patient has one prior EKG from February showing atrial fibrillation Currently presenting with irregular heart rate but with NVR Plan: ? Patient on anticoagulation with Heparin Infusion ? 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 Mcintyre outpatient who started patient on Plavix 75mg po qday and Lasix 20mg po every other day Patient's states that after his first 2 strokes in 2000 in 2015 he had no functional or memory deficits. However after his stroke in February 2024 he was left bedbound with severe dysarthria. Plan: ? Continue levothyroxine home dose 50mcg po qday ? Continue Plavix 75 Mg p.o. daily for stroke prophylaxis ? To discuss with accepting From transfer hospital if they would like to discontinue Plavix prior to procedure. Health maintenance: Disposition: On heparin infusion for extensive B/L lower extremity DVT. Pending transfer to tertiary center for catheter directed thrombolysis by interventional radiology. Pending discussion with accepting About if to discontinue Plavix prior to procedure. Diet: Cardiac Lines: pIVs GI Prophylaxis: None Thrombo Prophylaxis: Apixaban Code status: FULL CODE Plan of care discussed with Attending Dr. Horowitz and PGY2 Dr. Radha Gutierrez MD PGY 1 Attending Provider Attestation/Addendum I have discussed and was present for the essential components of the history, physical examination, diagnosis, and treatment plan with the resident. I agree with the patient's care as documented by the resident and amended herein by me. Kiko Horowitz DO. In short, 83-year-old male with significant past medical history of dementia, atrial fibrillation, hypertension, CVA, multiple DVTs status post IVC filter placement and catheter directed thrombolysis, hypothyroidism, BPH who was brought to the ED for significant lower extremity edema, subsequently admitted for extensive bilateral DVTs. No significant events overnight, vital signs stable, patient afebrile. Significant labs include a normal WBC, hemoglobin 8.5, slight downtrend from 9.9 yesterday however no signs of bleeding, BMP largely unremarkable. Initial venous Doppler on admission demonstrating extensive bilateral acute deep vein thrombosis specifically in the right common femoral right superficial femoral right popliteal veins and the left common femoral left superficial femoral and left popliteal veins. Initial chest x-ray demonstrated atelectasis and/or early pneumonia in the left base. Significant problem list/plan: #Extensive bilateral deep vein thrombosis # History of DVT status post IVC filter placement. No hypercoagulable workup in the past per ? Continue heparin drip -Was initially going to transfer considering we were out of alteplase however informed by pharmacy today it is back and stock. Dr Li gone for today, will consult IR tomorrow for possible catheter directed thrombolysis. Plavix held, patient on presently on heparin drip as stated above #? Acute decompensated heart failure, history of HFpEF EF 55 to 60%, last echo February 2024, stage I diastolic dysfunction, EF 55 to 60%, normal LV size and function. -Heart failure measures to include strict I's and O's, fluid restriction, daily weights and cardiac diet. #History of atrial fibrillation -Patient on therapeutic AC initially with Eliquis however now on heparin prior to potential procedure #History of dementia -Will continue home donepezil Although this document has been carefully reviewed, there may still be some phonetic and other typographical errors. These errors are purely grammatical due to imperfections in the software program and should not be construed in any way to compromise the substance of the patient's medical care during this visit.
[2024-06-06] MEDS: HEPARIN SOD INJ 5000 UNIT/ML VIAL 8000 UNIT IV (15:06)
[2024-06-06] MEDS: Heparin/D5w 25K 250 ML Ivpb 25,000 UNIT/250 ML BAG 18.01 UNIT IV (15:09)
--- NOTE | 2024-06-06 16:18 | PD.RESEVENT ---
Documentation for date of: 06/06/24 Event Note Event Note: Informed by clinical pharmacistIvy that we have facilities for IR guided catheter thrombolysis at this facility. Attempted to contact Dr Li for confirmation, however was unsuccessful. Ordered IR guided thrombolysis for B/L lower extremity DVT, to confirm with Dr. Flood tomorrow. Plavix placed on Hold Once above confirmed, transfer may be canceled and procedure will be done at [facility]. Plan of care discussed with Attending Dr. Horowitz and PGY3 Dr. Jason Gutierrez MD PGY 1 Of note, I did call the patient's this evening, Eduarda Nelson and updated her on the potential of doing the procedure here instead of transfer. We also transition the patient to heparin drip to be able to mitigate any episodes of bleeding more quickly. Patient's understood, all questions were answered
[2024-06-06] MEDS: DONEPEZIL HCL 5 MG TABLET PO (20:41)
[2024-06-06 22:38] LABS: Partial Thromboplastin Time > 139.0 Seconds (22.0-36.0)
[2024-06-07] VITALS (21 sets, daily range): BP systolic 113–146; BP diastolic 57–83; PULSE 60–124; RESP 12–20; TEMP 36.1–36.7; O2SAT 91–99
[2024-06-07] MEDS: LEVOTHYROXINE SODIUM 25 MCG TABLET 50 MCG PO (05:41)
[2024-06-07 05:48] LABS: Basophils % (Auto) 0 % (0-2.5); Eosinophils # (Auto) 0.2 Thou/mm3 (0.0-0.5); Eosinophils % (Auto) 3 % (0-10); Hematocrit 30.9 % (41.0-53.0); Hemoglobin 9.8 g/dL (13.5-16.0); Immature Granulocytes % (Auto) 0 % (0-0); Immature Granulocytes Auto 0.02 Thou/mm3 (0.00-0.00); Lymphocytes # (Auto) 1.8 Thou/mm3 (1.0-4.8); Lymphocytes % (Auto) 36 % (10-50); Mean Corpuscular HGB Conc 31.7 g/dl (31.0-37.0); Mean Corpuscular Hemoglobin 25.8 pg (25.0-35.0); Mean Corpuscular Volume 81 fL (80-100); Monocytes # (Auto) 0.4 Thou/mm3 (0.0-0.8); Monocytes % (Auto) 7 % (0-12); Neutrophils # (Auto) 2.7 Thou/mm3 (1.8-7.7); Neutrophils % (Auto) 53 % (37-80); Nucleated Red Blood Cell % 0 /100 WBC (0); Platelet Count 310 Thou/mm3 (140-440); RDW Standard Deviation 52.2 fL (35.1-43.9)
[2024-06-07 06:15] LABS: Anion Gap 7 (7-16); BUN/Creatinine Ratio 14 Ratio (12-20); Blood Urea Nitrogen 14 mg/dL (9-23); Calcium 8.5 mg/dL (8.3-10.6); Chloride 105 mMol/L (98-107); Estimated Creatinine Clearance 66.6 mL/min (>60); Glucose 86 mg/dL (74-106); Magnesium 2.2 mg/dL (1.6-2.6); Osmolality,Calculated 278 (275-295); Potassium 3.4 mMol/L (3.4-5.1); Sodium 140 mMol/L (136-145); eGFR > 60 See Note
[2024-06-07] MEDS: ALBUTEROL/IPRATROPIUM (Duoneb) RT SOL 3 ML NEBU INH ×3 (06:55→23:16)
[2024-06-07 07:17] LABS: Partial Thromboplastin Time 137.7 Seconds (22.0-36.0)
[2024-06-07] MEDS: FUROSEMIDE INJ 10 MG/ML VIAL 2 ML 20 MG IVP ×2 (08:23→15:30)
--- NOTE | 2024-06-07 09:08 | XR_ITS ---
Examination: Right lower extremity contrast venogram Fluoroscopy 20 spot fluoroscopic films of the lower leg Exam date and time: June 07, 2024 1030 hours INDICATIONS: Leg pain and swelling this week, positive venous Doppler lower extremities June 05, 2024 for deep vein thrombus, preop to undergo thrombolytic therapy TECHNIQUE AND FINDINGS: Informed consent provided. Timeout performed. Hand injection 15 cc Isovue-300 with serial filming over the extremity, 20 spot films of the lower extremity Poor filling of the tributaries to the popliteal vein Attenuated filling of the popliteal and superficial femoral vein with occlusion of the proximal and mid superficial femoral vein as well as common femoral vein Fluoroscopy 0.2 minute radiation dose 0.97 milligray 20 spot fluoroscopic films IMPRESSION: Extensive deep vein thrombus PLAN: Initiation of thrombolytic therapy, Cath Yosef 0.6 mg per hour continuous IV infusion Repeat ultrasound venous Doppler June 08, June 09, 2024
--- NOTE | 2024-06-07 10:38 | PC.CM ---
Addendum entered by Benjy Milligan RN 06/07/24 13:13: 1313- RADHA RN spoke to Dr. Corrales, patient was treated her in IR and transfer request will be cancelled at this time. Original Note: RADHA RN called Dr. Corrales this morning to provide phone number for Dr. Ren at [facility] [phone] to discuss case with him, she has informed RADHA RN that patient is currently in IR and that we can hold off on transfer at this time. She will call TC back if we need to move forward with transfer.
--- NOTE | 2024-06-07 10:45 | XR_ITS ---
Examination: Left lower extremity contrast venogram Fluoroscopy 13 spot fluoroscopic films of the lower extremity Exam date and time: June 07, 2024 1102 hours INDICATIONS: Leg pain and swelling this week, extensive acute deep vein thrombus in the left lower extremity on venous Doppler study June 05, 2024, preop thrombolytic therapy TECHNIQUE AND FINDINGS: Consent provided. Timeout performed. 10 cc Isovue-300 introduced into the deep venous system via intravenous line in the ankle 13 spot fluoroscopic films obtained of the left lower extremity There is no deep venous system filling There is superficial saphenous vein filling to the common femoral vein region IMPRESSION: Severe occlusive deep vein thrombus involving the entire deep venous system left lower extremity PLAN: Local intravenous thrombolytic therapy, Cath Yosef, 0.7 mg/h continuous IV infusion Follow-up ultrasound venous Doppler June 08June 09, 2024
[2024-06-07] MEDS: SODIUM CHLORIDE 0.9% IV ×2 (12:24→12:32)
[2024-06-07] MEDS: CATHFLO IV ×2 (12:24→12:32)
[2024-06-07] MEDS: Heparin/D5w 25K 250 ML Ivpb 25,000 UNIT/250 ML BAG 11.9 UNIT IV (13:06)
[2024-06-07] MEDS: POTASSIUM CHLORIDE 20 mEq TABCR PO (13:22)
[2024-06-07] MEDS: hydrALAZINE HCL 25 MG TABLET PO ×2 (13:22→20:03)
[2024-06-07] MEDS: FOLIC ACID 1 MG TABLET PO (13:23)
[2024-06-07] MEDS: amLODIPine BESYLATE 5 MG TABLET PO (13:23)
--- NOTE | 2024-06-07 14:36 | PC.SS ---
Rounding note: transfer cancelled. Thrombolysis scheduled today with IR.
--- NOTE | 2024-06-07 14:39 | ESPR_ITS ---
Documentation for date of: 06/07/24 Subjective - Hospitalist Subjective Interval history: Patient seen and eval this a.m. Patient states that he is feeling well. He has no acute complaints and denies any active pain in his bilateral lower extremities. Spoke with radiology this morning regarding availability of Cathflo. We will be able to do catheter directed thrombolysis here in our facility. Will cancel transfer at this time. Patient otherwise denies any chest pain, shortness of breath, nausea, vomiting, abdominal pain, dysuria, diarrhea otherwise. No family at bedside is having evaluation. Review of Systems Review of Systems Systems Reviewed: All systems reviewed, normal except as documented Exam Vital Signs Temp Pulse Resp BP Pulse Ox O2 Del Method 96.9 F 68 19 128/77 95 Room Air 06/07/24 08:00 06/07/24 13:23 06/07/24 12:41 06/07/24 13:23 06/07/24 12:41 06/07/24 12:41 Narrative Gen: No acute distress HEENT: NCAT, PERRLOU, Sclera anicteric, conjunctiva noninjected, oral mucosa moist without erythema Neck: supple, full range of motion, no LAD CV: RRR, no murmurs, rubs or gallops Resp: CTAB/L, no wheezing, rhonchi or rales GI: abdomen soft, bowel sounds noted, no tenderness to palpation, no guarding or rebound tenderness, no organomegaly Skin: clean, dry, no rashes, lesions or ecchymosis Ext: Bilateral lower extremity edema noted. No tenderness to palpation. 2+ pitting edema. Hyperpigmentation along the shins due to chronic changes. Neuro: A&O x3, CN II- XII intact b/l, no focal neurological deficits Objective - Hospitalist Labs Diagram: 06/07/24 05:30 06/07/24 05:30 Labs: Laboratory Results - last 24 hr 06/06/24 06/06/24 06/07/24 16:06 21:17 05:30 WBC 5.0 RBC 3.80 L Hgb 9.8 L Hct 30.9 L MCV 81 MCH 25.8 MCHC 31.7 RDW Std Deviation 52.2 H Plt Count 310 Neut % (Auto) 53 Lymph % (Auto) 36 Harnett % (Auto) 7 Eos % (Auto) 3 Baso % (Auto) 0 Neut # (Auto) 2.7 Lymph # (Auto) 1.8 Harnett # (Auto) 0.4 Eos # (Auto) 0.2 Baso # (Auto) 0.0 Immature Gran # (Auto) 0.02 H Absolute Nucleated RBC 0.00 Immature Gran % 0 Nucleated RBC % 0 APTT Cancelled > 139.0 H* D 137.7 H* Sodium 140 Potassium 3.4 Chloride 105 Carbon Dioxide 28.0 Anion Gap 7 BUN 14 Creatinine 1.0 Estim Creat Clear Calc 66.6 eGFR > 60 BUN/Creatinine Ratio 14 Glucose 86 Calculated Osmolality 278 Calcium 8.5 Magnesium 2.2 Assessment & Plan Patient Synopsis 83-year-old male patient with past medical history for dementia, atrial fibrillation, CVA, uncontrolled hypertension, history of multiple DVT s/p IVC filter, hypothyroidism, BPH was brought to ED for bilateral lower extremity swelling will be admitted to monitor for DVT progression and started on Eliquis anticoagulation; will also be given IV diuretics for heart failure exacerbation. #Extensive Bilateral Lower Extremity DVT?acute #History of DVT s/p IVC filter [2009] #Chronic lower extremity venous insufficiency Patient has hx of DVT in the past with [place] of [place]C [place] [address] Kelly. Doppler U/S of lower extremities confirms presence of severe b/l DVT According to patient's in 2015 at [facility] he had IV sclerotherapy with venous stripping of the lower extremity varicose veins bilaterally. Patient's , Eduarda, updated on the events for today and the pending transfer to [facility] for interventional radiology catheter directed thrombolysis. She is grateful for the update and all questions and concerns were addressed. Plan: Started on IV directed thrombolysis with restock of CathFlo. Transfer cancelled. Will f/u with US venous doppler on the and as per IR recommendations. Continue with heparin drip for systemic AC. # Acute on chronic diastolic Heart Failure Exacerbation [EF 55-60%] Patient presenting with b/l lower extremity swelling likely 2/2 to both DVT and possible HF exacerbation +2 pitting edema up to b/l hips noted on exam Last ECHO from 03/12/24 shows: Normal LV size and function. Stage I diastolic dysfunction. Estimated EF 55-60% Normal RV size and function The acending aorta is mildly dilated. 3.7cm. Trace MR, TR. Plan: ? Strict input output charting ? Daily weights ? 2G sodium restricted diet ? 1500 cc fluid restriction ? Increased lasix to 40mg IV daily ? Continue KCl 20 mEq p.o. every morning ? Follow-up outpatient for AAA monitoring #Ascending Aorta Aneurysm Last ECHO from 03/12/24 shows: Normal LV size and function. Stage I diastolic dysfunction. Estimated EF 55-60% Normal RV size and function The acending aorta is mildly dilated. 3.7cm. Trace MR, TR.] - F/u with cardiology outpatient. Patient is hemodynamically stable. No active chest pain #Atrial Fibrillation, NVR?long-term persistent CHADVASc score of 6 (Age >85, hypertension, CVA, vascular disease) Patient has one prior EKG from February showing atrial fibrillation Currently presenting with irregular heart rate but with NVR Plan: ? Patient on anticoagulation with Heparin Infusion ? 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 Mcintyre outpatient who started patient on Plavix 75mg po qday and Lasix 20mg po every other day Patient's states that after his first 2 strokes in 2000 in 2015 he had no functional or memory deficits. However after his stroke in February 2024 he was left bedbound with severe dysarthria. Plan: ? Continue levothyroxine home dose 50mcg po qday ? Continue Plavix 75 Mg p.o. daily for stroke prophylaxis Health maintenance: Disposition: Continue with Heparin drip and CathFlo started. Will f/u with Venous doppler US of b/l le Diet: Cardiac Lines: pIVs GI Prophylaxis: None Thrombo Prophylaxis: heparin drip Code status: FULL CODE Time Spent with Patient Time: Total time spent is greater than 50% in coordination of care (as documented) at patient's floor/unit and/or counseling patient: Time with patient: 25 - 35 minutes Reason for Continued Stay Reason for continued stay: further monitoring and other Quality Measures Quality Measures VTE therapy Advance care planning discussed with:: patient
[2024-06-07 17:27] LABS: Collection Type, Urine Catheter; Squamous Epithelial Cell,Urine 0 /hpf (0-5)
[2024-06-07] MEDS: CATHFLO (ALTEPLASE) INJ 4 MG in SODIUM CHLORIDE 0.9% 76 ML, Sterile Water 4 ML 14 MG IV (17:36)
[2024-06-07] MEDS: CATHFLO (ALTEPLASE) INJ 4 MG in SODIUM CHLORIDE 0.9% 76 ML, Sterile Water 4 ML 12 MG IV (17:37)
[2024-06-07 17:40] LABS: Bilirubin,Urine Negative (Negative); Blood,Urine Negative (Negative); Clarity,Urine Clear (Clear/Hazy); Color,Urine Colorless (Lt Yel-Yel); Culture Indicated,Urine Not Indicated; Glucose, Urine Negative (Negative); Hyaline Casts,Urine < 1 /hpf (0-1); Ketones,Urine Negative (Negative); Leukocyte Esterase,Urine Positive (Negative); Nitrite,Urine Negative (Negative); Protein,Urine Negative (Neg - Trace); RBC,Urine < 1 /hpf (0-3); Specific Gravity,Urine 1.009 (1.001-1.035); Urobilinogen,Urine Negative mg/dL (0.0-1.0); WBC,Urine 4 /hpf (0-5)
[2024-06-07] MEDS: ATORVASTATIN CALCIUM 20 MG TABLET 40 MG PO (20:03)
[2024-06-07] MEDS: DONEPEZIL HCL 5 MG TABLET PO (20:04)
[2024-06-07 20:29] LABS: Partial Thromboplastin Time 50.8 Seconds (22.0-36.0)
[2024-06-08] VITALS (11 sets, daily range): BP systolic 108–129; BP diastolic 53–84; PULSE 66–97; RESP 18–22; TEMP 36.2–36.6; O2SAT 92–100; BMI 29.5; BMI 29.4
[2024-06-08] MEDS: CATHFLO (ALTEPLASE) INJ 4 MG in SODIUM CHLORIDE 0.9% 76 ML, Sterile Water 4 ML 14 MG IV ×5 (00:10→23:54)
[2024-06-08] MEDS: CATHFLO (ALTEPLASE) INJ 4 MG in SODIUM CHLORIDE 0.9% 76 ML, Sterile Water 4 ML 12 MG IV ×4 (00:54→21:22)
[2024-06-08] MEDS: LEVOTHYROXINE SODIUM 25 MCG TABLET 50 MCG PO (05:39)
[2024-06-08 06:39] LABS: Basophils % (Auto) 1 % (0-2.5); Eosinophils # (Auto) 0.1 Thou/mm3 (0.0-0.5); Eosinophils % (Auto) 1 % (0-10); Hematocrit 31.4 % (41.0-53.0); Hemoglobin 9.9 g/dL (13.5-16.0); Immature Granulocytes % (Auto) 0 % (0-0); Immature Granulocytes Auto 0.03 Thou/mm3 (0.00-0.00); Lymphocytes # (Auto) 1.4 Thou/mm3 (1.0-4.8); Lymphocytes % (Auto) 17 % (10-50); Mean Corpuscular HGB Conc 31.5 g/dl (31.0-37.0); Mean Corpuscular Hemoglobin 25.9 pg (25.0-35.0); Mean Corpuscular Volume 82 fL (80-100); Monocytes # (Auto) 0.5 Thou/mm3 (0.0-0.8); Monocytes % (Auto) 6 % (0-12); Neutrophils % (Auto) 75 % (37-80); Nucleated Red Blood Cell % 0 /100 WBC (0); Platelet Count 328 Thou/mm3 (140-440); RDW Standard Deviation 52.9 fL (35.1-43.9); Red Blood Count 3.82 Miln/mm3 (4.50-5.90); White Blood Count 8.1 Thou/mm3 (3.8-10.6)
[2024-06-08] MEDS: ALBUTEROL/IPRATROPIUM (Duoneb) RT SOL 3 ML NEBU INH ×3 (06:39→23:29)
--- NOTE | 2024-06-08 07:00 | XR_ITS ---
Examination: Venous duplex lower extremity sonogram, bilateral. Date and time of exam: June 08, 2024 1340 hrs. Indications: Extensive bilateral leg deep vein thrombosis post initiation intravenous local thrombolytic therapy beginning yesterday Technique: Multiple sonographic images of the deep venous system have been obtained. B-mode/2-D grayscale imaging of vascular structures and Doppler spectral analysis (waveforms) and color performed Both legs are examined. Findings: There remains DVT in all visualized deep venous structures right and left lower extremities Impression: No significant change in extensive deep vein thrombus both lower legs
[2024-06-08 07:05] LABS: Anion Gap 9 (7-16); BUN/Creatinine Ratio 15 Ratio (12-20); Blood Urea Nitrogen 15 mg/dL (9-23); Calcium 8.5 mg/dL (8.3-10.6); Chloride 104 mMol/L (98-107); Estimated Creatinine Clearance 65.7 mL/min (>60); Glucose 108 mg/dL (74-106); Osmolality,Calculated 279 (275-295); Potassium 3.4 mMol/L (3.4-5.1); Sodium 139 mMol/L (136-145); eGFR > 60 See Note
[2024-06-08 07:12] LABS: INR 1.2 (0.9-1.3); Partial Thromboplastin Time 66.1 Seconds (22.0-36.0); Prothrombin Time 12.6 Seconds (9.0-12.2)
--- NOTE | 2024-06-08 07:30 | ESCONSULT_ITS ---
Documented by User: Bert Mcintyre MD 06/08/24 18:38 HPI Data of Consult Requesting Physician: Martínez Horowitz DO Primary Care Provider: Mary Kate Valladares MD Consult Narrative cc:: cc: Martínez Horowitz, DO Meds Home Medications and Allergies Home Medications ?Medication ?Instructions ?Recorded ?Confirmed ?Type atorvastatin 80 mg tablet 40 mg PO QPM 08/30/21 06/05/24 History cyanocobalamin (vitamin B-12) 500 1,000 mcg PO QDAY 08/30/21 06/05/24 History mcg tablet donepezil 5 mg tablet 2.5 mg PO QPM 08/30/21 06/05/24 History folic acid 1 mg tablet 1 mg PO QDAY 08/30/21 06/05/24 History levothyroxine 50 mcg tablet 50 mcg PO QDAY 08/30/21 06/05/24 History amlodipine 5 mg tablet 5 mg PO QMORNING 06/05/24 06/05/24 History furosemide 40 mg tablet (Lasix) 40 mg PO EVERYOTHERDAY 06/05/24 06/05/24 History hydralazine 25 mg tablet 25 mg PO 2XD 06/05/24 06/05/24 History Allergies Allergy/AdvReac Type Severity Reaction Status Date / Time horseradish Allergy Severe Anaphylaxis Verified 06/09/23 11:16 phytonadione (vitamin K1) AdvReac Severe SEVERE Verified 06/09/23 11:16 BLEEDING warfarin AdvReac Severe SEVERE Verified 06/09/23 11:16 BLEEDING Exam Vital Signs Temp Pulse Resp BP Pulse Ox O2 Del Method 96.9 F 77 20 127/62 99 Room Air 06/07/24 08:00 06/07/24 15:56 06/07/24 15:56 06/07/24 15:30 06/07/24 15:56 06/07/24 12:41 Results Labs 06/08/24 05:47 06/08/24 05:47 Labs: Short CBC 06/07/24 Range/Units 05:30 WBC 5.0 (3.8-10.6) Thou/mm3 Hgb 9.8 L (13.5-16.0) g/dL Hct 30.9 L (41.0-53.0) % Plt Count 310 (140-440) Thou/mm3 BMP 06/07/24 05:30 Sodium 140 Potassium 3.4 Chloride 105 Carbon Dioxide 28.0 BUN 14 Creatinine 1.0 Glucose 86 Calcium 8.5 Assessment and Plan Additional Assessment & Plan Additional Plan: 82-year-old male with past medical history of atrial fibrillation with long- term, essential hypertension, multiple CVAs (most recent 1 in February of this year he was seen at [facility]), multiple DVTs s/p IVC filter, ascending aortic aneurysm, chronic diastolic heart failure (EF 55 to 60%), dementia, hypothyroidism, and BPH who was admitted to the hospital on 06/05/2024 due to DVTs 1. Acute on chronic bilateral lower extremity DVT 2. Paroxysmal atrial fibrillation 2. Chronic diastolic heart failure (EF 55 to 60%) 4. Hx of multiple DVTs s/p IVC filter 5. Ascending aortic aneurysm-mild 6. Essential hypertension ?Patient has a long history of A-fib and is not complaining of any chest pain or any other cardiac symptoms at this time. ?Patient came in due to worsening bilateral lower extremity swelling that started on Monday and did not improve with diuretics. ? Venous Doppler study was positive for extensive bilateral lower extremity DVTs ?Patient had bilateral catheter directed thrombolysis done on 06/07/2024 ?Echo on 03/12/2024 had the following findings: Normal LV size and function. Stage I diastolic dysfunction. Estimated EF 55-60% Normal RV size and function The acending aorta is mildly dilated. 3.7cm. Trace MR, TR. ?[id number] score of 7 points indicating 11.2% risk of stroke per year ?HAS-BLED score of 4 points indicating high risk of major bleeding Plan: ?Recommend to continue heparin drip ?Recommend to continue Lasix 40 mg daily, could be decreased to 20 mg daily if patient's kidney function deteriorates. ?Recommend to continue Plavix 75 mg daily and high intensity statin -Recommend to start eliquis 5 mg BID ?Recommend to keep potassium and magnesium above 4 and 2 respectively to avoid any further arrhythmias ?Strict RICHARD's ?Daily weights ? Low-sodium diet ?Fluid restrictions 7. Multiple CVAs 8. Hypothyroidism 9. BPH 10. Dementia ?Continue current management as per primary care team Continue rest of management as per primary team. We are grateful to be able to participate in Mr. Nelson's care. Thank you for the consult Plan of care discussed with attending Fiberglass Machine Operator, Dr. Miguelina Canela MD PGY-1 I have personally seen and examined the patient separately on the above date of service and discussed the plan of care with the resident. I reviewed the resident Dr. Pierce consultation progress note and agree with the resident findings and plan in the note above and have also edited the documentation to reflect my findings and plan. Patient well-known to me from previous admissions here and at [facility]. Patient did follow-up with me in the office once and we did adjust his blood pressure medications along with his Lasix. Most of the treatment for patient was conservative which was explained to the in detail. Patient did have high blood pressure but had significant bradycardia with beta-blockers and hence was discontinued. Also recommended to discontinue Aricept for the patient as it can cause significant bradycardia. Patient presented now to the hospital for further evaluation of bilateral lower extremity swelling and was found to have acute on chronic bilateral leg DVT. Patient was placed on by interventional radiology for treatment of his bilateral DVT rate which we agree. On examination patient does not have any phlegmasia cerulea dolens and has does not have any signs of compartment syndrome. Bilateral thrombectomy can be considered for the DVT but given his overall comorbidities and his long-term prognosis, patient can be treated with IV anticoagulation along with the Cathflo for now. If family was not at the bedside today during my rounds and if the family interests on thrombectomy then patient can be transferred to [facility] or [facility] for further treatment otherwise recommend the patient to continue heparin drip for now and change to Eliquis as per the DVT protocol starting at 10 mg twice daily and then eventually decreasing it to 5 mg twice daily as per the protocol. Please discontinue the donepezil Blood pressure appears to be adequately controlled with amlodipine as well as hydralazine which we recommend to continue. Management of rest of the medical conditions as per primary team and other consultants. Thank you for the consult and allowing me to participate in the care of the patient. Cardiology will continue to follow. Bert Mcintyre M.D. Interventional Cardiology Documented by User: Shelton Canela MD 06/08/24 18:13 HPI Consult Narrative History of present illness: 82-year-old male with past medical history of atrial fibrillation with long- term, essential hypertension, multiple CVAs (most recent 1 in February of this year he was seen at [facility]), multiple DVTs s/p IVC filter, ascending aortic aneurysm, chronic diastolic heart failure (EF 55 to 60%), dementia, hypothyroidism, and BPH who was admitted to the hospital on 06/05/2024 due to DVTs. In the ED patient came in with complaints of bilateral lower extremity swelling that progressively got worse prior to admission. Initially patient came in afebrile and mildly hypertensive. Initial labs showed WBC 5.4, Hgb 9.9, platelets 300, sodium 140, potassium 3.2, chloride 106, BUN 11, creatinine 1, magnesium 2, and troponins less than 0.02. Initial imaging included chest x-ray which shows some pneumonia of the left base, venous Doppler which showed extensive bilateral DVTs, and EKG showed A-fib. Echo on 03/12/2024 had the following findings: Normal LV size and function. Stage I diastolic dysfunction. Estimated EF 55-60% Normal RV size and function The acending aorta is mildly dilated. 3.7cm. Trace MR, TR. During my assessment most of the history was taken from the who was at bedside given the patient's has significant dementia and per chart review. Patient's stated that starting on Monday they noticed that he had lower extremity swelling, but thought that it was due to fluid retention and gave patient his daily Lasix. On Monday evening patient's noticed that the lower extremity swelling got worse and did not improve even after getting Lasix therefore she brought him to the ER. She stated that the patient does not complain of any pain usually this is most likely due to his dementia. She said he did not have any complaints of chest pain, shortness of breath, or palpitations. Patient was supposed to follow-up with me on Monday in my clinic, but they decided to come to the ER. Patient was attempted to be transferred to [facility] for interventional radiology catheter directed thrombolysis, but IR guided thrombolysis for bilateral lower extremities was done by interventional radiologist Dr. Li therefore transfer was canceled. Patient had a catheter directed thrombolysis done on 06/07/2024. 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 Surgical Hx: He was brought, and neurosurgery Meds Home Medications and Allergies Home Medications ?Medication ?Instructions ?Recorded ?Confirmed ?Type atorvastatin 80 mg tablet 40 mg PO QPM 08/30/21 06/05/24 History cyanocobalamin (vitamin B-12) 500 1,000 mcg PO QDAY 08/30/21 06/05/24 History mcg tablet donepezil 5 mg tablet 2.5 mg PO QPM 08/30/21 06/05/24 History folic acid 1 mg tablet 1 mg PO QDAY 08/30/21 06/05/24 History levothyroxine 50 mcg tablet 50 mcg PO QDAY 08/30/21 06/05/24 History amlodipine 5 mg tablet 5 mg PO QMORNING 06/05/24 06/05/24 History furosemide 40 mg tablet (Lasix) 40 mg PO EVERYOTHERDAY 06/05/24 06/05/24 History hydralazine 25 mg tablet 25 mg PO 2XD 06/05/24 06/05/24 History Allergies Allergy/AdvReac Type Severity Reaction Status Date / Time horseradish Allergy Severe Anaphylaxis Verified 06/09/23 11:16 phytonadione (vitamin K1) AdvReac Severe SEVERE Verified 06/09/23 11:16 BLEEDING warfarin AdvReac Severe SEVERE Verified 06/09/23 11:16 BLEEDING Exam Vital Signs Temp Pulse Resp BP Pulse Ox O2 Del Method 96.9 F 77 20 127/62 99 Room Air 06/07/24 08:00 06/07/24 15:56 06/07/24 15:56 06/07/24 15:30 06/07/24 15:56 06/07/24 12:41 Narrative Exam Physical exam limited due to patient's dementia General: Patient has dementia, in no acute distress Eyes: PERRL, EOMI. Anicteric, vision grossly intact Ears: No visible ear discharge, Hearing mildly impaired Nose: No nasal discharge. Mouth/Throat: Dry mucous membranes, no redness, no lesions. Neck: Neck supple, non-tender, no cervical lymphadenopathy. Lungs: Clear BURKE to auscultation and percussion, No accessory muscle use. Cardio: Normal S1/S2, irregularly irregular rhythm, no murmurs, no JVD Abdomen: Soft, but distended, non-tender, no palpable masses, peristalsis present, no guarding or rebound. Extremities: Symmetrical, no significant deformities, 3+ pitting edema, non- tender, peripheral pulses presents. Skin: No rashes, no lesions, warm to touch. Neuro: Patient has some left-sided hemiplegia and did not follow commands likely due to his dementia, did not move both upper extremities. Psych: Flat affect Results Labs 06/08/24 05:47 06/08/24 05:47 Labs: Short CBC 06/07/24 Range/Units 05:30 WBC 5.0 (3.8-10.6) Thou/mm3 Hgb 9.8 L (13.5-16.0) g/dL Hct 30.9 L (41.0-53.0) % Plt Count 310 (140-440) Thou/mm3 BMP 06/07/24 05:30 Sodium 140 Potassium 3.4 Chloride 105 Carbon Dioxide 28.0 BUN 14 Creatinine 1.0 Glucose 86 Calcium 8.5 Assessment and Plan Additional Assessment & Plan Additional Plan: 82-year-old male with past medical history of atrial fibrillation with long- term, essential hypertension, multiple CVAs (most recent 1 in February of this year he was seen at [facility]), multiple DVTs s/p IVC filter, ascending aortic aneurysm, chronic diastolic heart failure (EF 55 to 60%), dementia, hypothyroidism, and BPH who was admitted to the hospital on 06/05/2024 due to DVTs 1. Atrial fibrillation long-term 2. Chronic diastolic heart failure (EF 55 to 60%) 3. Bilateral lower extremity DVT 4. Hx of multiple DVTs s/p IVC filter 5. Ascending aortic aneurysm 6. Essential hypertension ?Patient has a long history of A-fib and is not complaining of any chest pain or any other cardiac symptoms at this time. ?Patient came in due to worsening bilateral lower extremity swelling that started on Monday and did not improve with diuretics. ? Venous Doppler study was positive for extensive bilateral lower extremity DVTs ?Patient had bilateral catheter directed thrombolysis done on 06/07/2024 ?Echo on 03/12/2024 had the following findings: Normal LV size and function. Stage I diastolic dysfunction. Estimated EF 55-60% Normal RV size and function The acending aorta is mildly dilated. 3.7cm. Trace MR, TR. ?[id number] score of 7 points indicating 11.2% risk of stroke per year ?HAS-BLED score of 4 points indicating high risk of major bleeding Plan: ?Recommend to continue heparin drip ?Recommend to continue Lasix 40 mg daily, could be decreased to 20 mg daily if patient's kidney function deteriorates. ?Recommend to continue Plavix 75 mg daily and high intensity statin -Recommend to start eliquis 5 mg BID ?Recommend to keep potassium and magnesium above 4 and 2 respectively to avoid any further arrhythmias ?Strict RICHARD's ?Daily weights ? Low-sodium diet ?Fluid restrictions 7. Multiple CVAs 8. Hypothyroidism 9. BPH 10. Dementia ?Continue current management as per primary care team Continue rest of management as per primary team. We are grateful to be able to participate in Mr. Nelson's care. Thank you for the consult Plan of care discussed with attending Fiberglass Machine Operator, Dr. Miguelina Canela MD PGY-1
[2024-06-08] MEDS: POTASSIUM CHLORIDE 20 mEq TABCR PO ×2 (07:58→10:01)
[2024-06-08] MEDS: hydrALAZINE HCL 25 MG TABLET PO ×2 (08:00→20:51)
[2024-06-08] MEDS: FOLIC ACID 1 MG TABLET PO (08:00)
[2024-06-08] MEDS: amLODIPine BESYLATE 5 MG TABLET PO (08:00)
[2024-06-08] MEDS: FUROSEMIDE INJ 10 MG/ML VIAL 2 ML 40 MG IVP (08:00)
--- NOTE | 2024-06-08 08:49 | PC.CM ---
received fax from [facility] that pt. is open with [facility]. Entered pt. on [facility].
[2024-06-08] MEDS: CLOPIDOGREL BISULFATE 75 MG TABLET PO (10:01)
--- NOTE | 2024-06-08 10:58 | ESPR_ITS ---
Documentation for date of: 06/08/24 Subjective Subjective Interval history: Patient was seen and examined at the bedside. Patient is demented therefore was not conversational. Patient's was present at the bedside and she was explained that venous Doppler study is not showing improvement in his extensive DVT so far and will evaluate tomorrow morning based on venogram. Patient's appears to be satisfied with the results. She was explained that we will likely evaluate tomorrow and IR recommended to remove the IV lines from both lower extremities on Monday. Round Boner recommended to continue Plavix in addition to heparin drip. Electrolytes were repleted. All labs and orders were reviewed. Exam Vital Signs Temp Pulse Resp BP Pulse Ox O2 Del Method 97.1 F 97 18 108/53 L 94 L Room Air 06/08/24 07:50 06/08/24 08:00 06/08/24 07:50 06/08/24 08:00 06/08/24 07:50 06/08/24 07:50 Narrative Exam Physical Exam: GENERAL: Awake, not answering questions appropriately, answers with yes or no but usually no answer, appears stated age. HEENT: NC/AT. Moist mucosa. PERRLA/EOMI. CARDIO: Irregularly irregular, no obvious murmurs, no JVD. PULM: No coughing or visible SOB. Lungs CTA B/L upper airway transmitted sounds GI: Abdomen soft, NT/ND, +BS. URO/FINANCE ADMIN: +Alvares catheter. SKIN/MSK/EXT: +2 pitting edema noted up to hips bilaterally. Lower extremities grossly edematous., Hyperpigmented over shins B/L, no wounds/rashes/amputations noted. +Pedal pulses present B/L. NEURO: Oriented x0 2/2 dementia (patient could not answer name, place or purpose). Left-sided hemiplegia. Power 1/5 LLL, power 2/5 ZOILA, power 3/5 RLL, power 4/5 RUL Objective Labs 06/09/24 04:36 06/09/24 04:36 Labs: Laboratory Results - last 24 hr 06/07/24 06/07/24 06/08/24 16:30 19:14 05:47 WBC 8.1 D RBC 3.82 L Hgb 9.9 L Hct 31.4 L MCV 82 MCH 25.9 MCHC 31.5 RDW Std Deviation 52.9 H Plt Count 328 Neut % (Auto) 75 Lymph % (Auto) 17 [place] % (Auto) 6 Eos % (Auto) 1 Baso % (Auto) 1 Neut # (Auto) 6.0 Lymph # (Auto) 1.4 [place] # (Auto) 0.5 Eos # (Auto) 0.1 Baso # (Auto) 0.0 Immature Gran # (Auto) 0.03 H Absolute Nucleated RBC 0.00 Immature Gran % 0 Nucleated RBC % 0 PT 12.6 H INR 1.2 APTT 50.8 H D 66.1 H D Sodium 139 Potassium 3.4 Chloride 104 Carbon Dioxide 26.0 Anion Gap 9 BUN 15 Creatinine 1.0 Estim Creat Clear Calc 65.7 eGFR > 60 BUN/Creatinine Ratio 15 Glucose 108 H Calculated Osmolality 279 Calcium 8.5 Magnesium 2.0 Ur Collection Type Catheter Urine Color Colorless A Urine Clarity Clear Urine pH 6.0 Ur Specific [employer] Mdl 1.009 Urine Protein Negative Urine Glucose (UA) Negative Urine Ketones Negative Urine Blood Negative Urine Nitrite Negative Urine Bilirubin Negative Urine Urobilinogen (Auto) Negative Ur Leukocyte Esterase Positive Urine RBC < 1 Urine WBC 4 Ur Squamous Epith Cells 0 Urine Bacteria None Hyaline Casts < 1 Ur Culture Indicated? Not Indicated Quality Measures Quality Measures VTE therapy Advance care planning discussed with:: patient Assessment & Plan Assessment Current Active Medications: Generic Name Dose Route Start Last Admin Trade Name Freq PRN Reason Stop Dose Admin Acetaminophen 650 mg 06/05/24 04:36 Acetaminophen 325 Mg Tablet PO 07/05/24 04:35 Q6H PRN Fever >101.5 Albuterol/Ipratropium 3 ml 06/05/24 23:00 06/08/24 06:39 Albuterol/Ipratropium (Duoneb) Rt [place] 3 Ml Nebu INH 07/05/24 22:59 3 ml Q8HRRT NIRAV Administration Amlodipine Besylate 5 mg 06/07/24 10:15 06/08/24 08:00 Amlodipine Besylate 5 Mg Tablet PO 07/07/24 10:14 5 mg QAM NIRAV Administration Atorvastatin Calcium 40 mg 06/07/24 21:00 06/07/24 20:03 Atorvastatin Calcium 20 Mg Tablet PO 07/07/24 20:59 40 mg QPM NIRAV Administration Clopidogrel Bisulfate 75 mg 06/08/24 09:00 06/08/24 10:01 Clopidogrel Bisulfate 75 Mg Tablet PO 07/08/24 08:59 75 mg QDAY NIRAV Administration Donepezil HCl 5 mg 06/05/24 21:00 06/07/24 20:04 Donepezil Hcl 5 Mg Tablet PO 07/05/24 20:59 5 mg HS NIRAV Administration Folic Acid 1 mg 06/05/24 09:00 06/08/24 08:00 Folic Acid 1 Mg Tablet PO 07/05/24 08:59 1 mg QDAY NIRAV Administration Furosemide 40 mg 06/08/24 09:00 06/08/24 08:00 Furosemide Inj 10 Mg/Ml Vial 2 Ml IVP 07/08/24 08:59 40 mg QDAY NIRAV Administration Hydralazine HCl 25 mg 06/07/24 10:15 06/08/24 08:00 Hydralazine Hcl 25 Mg Tablet PO 07/07/24 10:14 25 mg BID NIRAV Administration Heparin Sodium/Dextrose 25,000 unit in 250 mls @ 18.01 mls/hr 06/06/24 13:45 06/07/24 20:00 Heparin In D5w Ivpb IV 06/20/24 13:44 11.76 units/kg/hr .[id number] NIRAV 11.899 mls/hr Infusion Protocol 17.8 UNITS/KG/HR Alteplase, Recombinant 4 mg/ 80 mls @ 14 mls/hr 06/07/24 17:13 06/08/24 10:08 Sodium Chloride/ Sterile Water IV 06/10/24 11:29 0.7 mg/hr .[id number] NIRAV 14 mls/hr Administration 0.7 MG/HR Alteplase, Recombinant 4 mg/ 80 mls @ 12 mls/hr 06/07/24 18:09 06/08/24 07:57 Sodium Chloride/ Sterile Water IV 06/10/24 11:28 0.6 mg/hr .Q6H40M NIRAV 12 mls/hr Administration 0.6 MG/HR Levothyroxine Sodium 50 mcg 06/05/24 06:00 06/08/24 05:39 Levothyroxine Sodium 25 Mcg Tablet PO 07/05/24 05:59 50 mcg ACBR NIRAV Administration Potassium Chloride 20 meq 06/05/24 08:00 06/08/24 07:58 Potassium Chloride 20 Meq Tabcr PO 07/05/24 07:59 20 meq WBR NIRAV Administration Sennosides 1 tab 06/05/24 05:32 Senna Tablet PO 07/05/24 05:31 QDAY PRN CONSTIPATION Protocol Plan 83-year-old male patient with past medical history for dementia, atrial fibrillation, CVA, uncontrolled hypertension, history of multiple DVT s/p IVC filter, hypothyroidism, BPH was brought to ED for bilateral lower extremity swelling will be admitted to monitor for DVT progression and started on Eliquis anticoagulation; will also be given IV diuretics for heart failure exacerbation. #Extensive Bilateral Lower Extremity DVT?acute #History of DVT s/p IVC filter [2009] #Chronic lower extremity venous insufficiency Patient has hx of DVT in the past with [place] of IVC [place] [address] Kelly. Doppler U/S of lower extremities confirms presence of severe b/l DVT According to patient's in 2015 at [facility] he had IV sclerotherapy with venous stripping of the lower extremity varicose veins bilaterally. Patient's , Eduarda, updated regarding persistent extensive DVT for which she was not satisfied Plan: ?Started on IV directed thrombolysis with restock of CathFlo. ? Continue Plavix 75 mg once daily per cardiology recommendation ?Will f/u with US venous doppler on the and as per IR recommendations. ?Continue with heparin drip for systemic AC. ?Daily labs # Acute on chronic diastolic Heart Failure Exacerbation [EF 55-60%] Patient presenting with b/l lower extremity swelling likely 2/2 to both DVT and possible HF exacerbation +2 pitting edema up to b/l hips noted on exam Last ECHO from 03/12/24 shows: Normal LV size and function. Stage I diastolic dysfunction. Estimated EF 55-60% Normal RV size and function The acending aorta is mildly dilated. 3.7cm. Trace MR, TR. Plan: ? Strict input output charting ? Daily weights ? 2G sodium restricted diet ? 1500 cc fluid restriction ? Increased lasix to 40mg IV daily ? Continue KCl 20 mEq p.o. every morning ? Follow-up outpatient for AAA monitoring #Ascending Aorta Aneurysm Last ECHO from 03/12/24 shows: Normal LV size and function. Stage I diastolic dysfunction. Estimated EF 55-60% Normal RV size and function The acending aorta is mildly dilated. 3.7cm. Trace MR, TR.] - F/u with cardiology outpatient. Patient is hemodynamically stable. No active chest pain #Atrial Fibrillation, NVR?long-term persistent CHADVASc score of 6 (Age >85, hypertension, CVA, vascular disease) Patient has one prior EKG from February showing atrial fibrillation Currently presenting with irregular heart rate but with NVR Plan: ? Patient on anticoagulation with Heparin Infusion ? 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 Mcintyre outpatient who started patient on Plavix 75mg po qday and Lasix 20mg po every other day Patient's states that after his first 2 strokes in 2000 in 2015 he had no functional or memory deficits. However after his stroke in February 2024 he was left bedbound with severe dysarthria. Plan: ? Continue levothyroxine home dose 50mcg po qday ? Continue Plavix 75 Mg p.o. daily for stroke prophylaxis Health maintenance: Disposition: Continue with Heparin drip and CathFlo started. Will f/u with Venous doppler US of b/l le. Diet: Cardiac Lines: pIVs GI Prophylaxis: None Thrombo Prophylaxis: heparin drip Code status: FULL CODE Patient was seen and discussed with attending physician, Dr. Savanna Garcia MD, PGY 2 Attending Provider Attestation/Addendum Shaquille, Yuli Corrales DO, attest that I was physically present for the mosley portions of the service and evaluated the patient with the resident and I reviewed and discussed the case with the resident and agree with the resident's findings and plans of care as documented above Patient seen and evaluated this AM. He has no acute complaints this AM. B/l LE edema appears improved with diuresis. DVT of b/l LE appears unchanged. Will continue with IV diuresis, cathflo and heparin drip. Patient's appeared to be visibly upset, but stated she had no questions and few words regarding patient's plan of care. She was updated regarding UA that did not show any signs of active infections. Patient due for exchange of alvares catheter at urology office on Monday. May exchange on Monday here in hospital once patient is off anticoagulation to avoid bleeding, if wishes for us to do so.
--- NOTE | 2024-06-08 12:20 | PC.NURSE ---
Attempted to contact ultrasound, no answer, voicemail left.
[2024-06-08] MEDS: Heparin/D5w 25K 250 ML Ivpb 25,000 UNIT/250 ML BAG 11.899 UNIT IV (15:08)
[2024-06-08] MEDS: DONEPEZIL HCL 5 MG TABLET PO (20:51)
[2024-06-08] MEDS: ATORVASTATIN CALCIUM 20 MG TABLET 40 MG PO (20:51)
[2024-06-09] VITALS (12 sets, daily range): BP systolic 111–135; BP diastolic 61–79; PULSE 60–115; RESP 1–23; TEMP 36.1–36.6; O2SAT 94–100; BMI 29.6
[2024-06-09] MEDS: CATHFLO (ALTEPLASE) INJ 4 MG in SODIUM CHLORIDE 0.9% 76 ML, Sterile Water 4 ML 12 MG IV ×3 (04:17→16:22)
[2024-06-09] MEDS: LEVOTHYROXINE SODIUM 25 MCG TABLET 50 MCG PO (05:02)
[2024-06-09 05:18] LABS: Magnesium 1.9 mg/dL (1.6-2.6)
[2024-06-09 05:31] LABS: INR 1.1 (0.9-1.3); Partial Thromboplastin Time 65.4 Seconds (22.0-36.0); Prothrombin Time 12.3 Seconds (9.0-12.2)
[2024-06-09] MEDS: CATHFLO (ALTEPLASE) INJ 4 MG in SODIUM CHLORIDE 0.9% 76 ML, Sterile Water 4 ML 14 MG IV ×4 (06:20→23:48)
[2024-06-09] MEDS: ALBUTEROL/IPRATROPIUM (Duoneb) RT SOL 3 ML NEBU INH ×3 (06:23→22:45)
--- NOTE | 2024-06-09 07:00 | XR_ITS ---
Examination: Venous duplex lower extremity sonogram, bilateral. Date and time of exam: June 09, 2024 1129 hrs. Comparison June 08, 2024 Indications: Patient and Thrombolytic therapy for extensive bilateral deep vein thrombus on venous Doppler study June 05, 2024 Technique: Multiple sonographic images of the deep venous system have been obtained. B-mode/2-D grayscale imaging of vascular structures and Doppler spectral analysis (waveforms) and color performed Both legs are examined. Findings: No improvement in extensive bilateral occlusive deep vein thrombus involving both lower extremities Impression: No improvement in extensive bilateral occlusive deep vein thrombus involving both lower extremities
[2024-06-09] MEDS: hydrALAZINE HCL 25 MG TABLET PO ×2 (07:54→20:14)
[2024-06-09] MEDS: POTASSIUM CHLORIDE 20 mEq TABCR PO ×2 (07:54→20:14)
[2024-06-09] MEDS: amLODIPine BESYLATE 5 MG TABLET PO (07:54)
[2024-06-09] MEDS: FOLIC ACID 1 MG TABLET PO (07:54)
[2024-06-09] MEDS: CLOPIDOGREL BISULFATE 75 MG TABLET PO (07:54)
[2024-06-09] MEDS: FUROSEMIDE INJ 10 MG/ML VIAL 2 ML 40 MG IVP (07:55)
[2024-06-09 08:47] LABS: Basophils % (Auto) 1 % (0-2.5); Eosinophils # (Auto) 0.1 Thou/mm3 (0.0-0.5); Eosinophils % (Auto) 2 % (0-10); Hematocrit 28.7 % (41.0-53.0); Hemoglobin 9.1 g/dL (13.5-16.0); Immature Granulocytes % (Auto) 0 % (0-0); Immature Granulocytes Auto 0.01 Thou/mm3 (0.00-0.00); Lymphocytes # (Auto) 1.4 Thou/mm3 (1.0-4.8); Lymphocytes % (Auto) 26 % (10-50); Mean Corpuscular HGB Conc 31.7 g/dl (31.0-37.0); Mean Corpuscular Hemoglobin 26.1 pg (25.0-35.0); Mean Corpuscular Volume 82 fL (80-100); Monocytes # (Auto) 0.4 Thou/mm3 (0.0-0.8); Monocytes % (Auto) 7 % (0-12); Neutrophils # (Auto) 3.5 Thou/mm3 (1.8-7.7); Neutrophils % (Auto) 65 % (37-80); Nucleated Red Blood Cell % 0 /100 WBC (0); Platelet Count 315 Thou/mm3 (140-440); RDW Standard Deviation 53.1 fL (35.1-43.9); Red Blood Count 3.49 Miln/mm3 (4.50-5.90); White Blood Count 5.4 Thou/mm3 (3.8-10.6)
[2024-06-09 10:54] LABS: Alanine Aminotransferase 14 U/L (10-49); Albumin, Serum 3.2 gm/dL (3.4-4.8); Albumin/Globulin Ratio 1.5 (1.2-2.2); Alkaline Phosphatase 85 U/L (46-116); Anion Gap 7 (7-16); Aspartate Amino Transferase 13 U/L (0-34); BUN/Creatinine Ratio 14 Ratio (12-20); Bilirubin,Total 0.6 mg/dL (0.3-1.2); Blood Urea Nitrogen 14 mg/dL (9-23); Calcium 8.1 mg/dL (8.3-10.6); Calcium (Corrected) 8.7 mg/dL (8.5-10.1); Carbon Dioxide 27.8 mMol/L (20.0-31.0); Chloride 105 mMol/L (98-107); Estimated Creatinine Clearance 65.8 mL/min (>60); Globulin 2.1 gm/dL (2.3-3.5); Glucose 95 mg/dL (74-106); Osmolality,Calculated 279 (275-295); Potassium 3.4 mMol/L (3.4-5.1); Sodium 140 mMol/L (136-145); Total Protein 5.3 gm/dL (5.7-8.2); eGFR > 60 See Note
--- NOTE | 2024-06-09 11:40 | ESPR_ITS ---
Documentation for date of: 06/09/24 Subjective Subjective Interval history: Patient was seen at bedside this morning. No overnight events. Continue heparin drip for now along with plavix 75mg as well as high intensity statin. Recommend to at some point transition patient to Eliquis 10 mg BID as per DVT protocol and then decreased to 5mg BID. Potassium 3.4 and mg 1.9, recommend to replete to keep above 4 and 2 respectively. Recommend to discontinue donepezil. BP has been well controlled can continue amlodipine and hydralazine for now. Patient's was not at beside today during my examination, but if she wishes to have thrombectomy than patient will need to be transferred to [facility] or [facility] for further treatment. Exam Vital Signs Temp Pulse Resp BP Pulse Ox O2 Del Method 96.9 F 115 H 18 130/61 95 Nasal Cannula 06/09/24 08:00 06/09/24 08:00 06/09/24 08:00 06/09/24 08:00 06/09/24 08:00 06/09/24 08:00 Narrative Exam Physical exam limited due to patient's dementia General: Patient has dementia, in no acute distress Eyes: PERRL, EOMI. Anicteric, vision grossly intact Ears: No visible ear discharge, Hearing mildly impaired Nose: No nasal discharge. Mouth/Throat: Dry mucous membranes, no redness, no lesions. Neck: Neck supple, non-tender, no cervical lymphadenopathy. Lungs: Clear BURKE to auscultation and percussion, No accessory muscle use. Cardio: Normal S1/S2, irregularly irregular rhythm, no murmurs, no JVD Abdomen: Soft, but distended, non-tender, no palpable masses, peristalsis present, no guarding or rebound. Extremities: Symmetrical, no significant deformities, 3+ pitting edema, non- tender, peripheral pulses presents. Skin: No rashes, no lesions, warm to touch. Neuro: Patient has some left-sided hemiplegia and did not follow commands likely due to his dementia, did not move both upper extremities. Psych: Flat affect Objective Labs 06/09/24 04:36 06/09/24 04:36 Labs: Laboratory Results - last 24 hr 06/09/24 04:36 WBC 5.4 RBC 3.49 L Hgb 9.1 L Hct 28.7 L MCV 82 MCH 26.1 MCHC 31.7 RDW Std Deviation 53.1 H Plt Count 315 Neut % (Auto) 65 Lymph % (Auto) 26 Barnes % (Auto) 7 Eos % (Auto) 2 Baso % (Auto) 1 Neut # (Auto) 3.5 Lymph # (Auto) 1.4 Barnes # (Auto) 0.4 Eos # (Auto) 0.1 Baso # (Auto) 0.0 Immature Gran # (Auto) 0.01 H Absolute Nucleated RBC 0.00 Immature Gran % 0 Nucleated RBC % 0 PT 12.3 H INR 1.1 APTT 65.4 H Sodium 140 Potassium 3.4 Chloride 105 Carbon Dioxide 27.8 Anion Gap 7 BUN 14 Creatinine 1.0 Estim Creat Clear Calc 65.8 eGFR > 60 BUN/Creatinine Ratio 14 Glucose 95 Calculated Osmolality 279 Calcium 8.1 L Corrected Calcium 8.7 Magnesium 1.9 Total Bilirubin 0.6 AST 13 ALT 14 Alkaline Phosphatase 85 Total Protein 5.3 L Albumin 3.2 L Globulin 2.1 L Albumin/Globulin Ratio 1.5 Quality Measures Quality Measures VTE therapy Advance care planning discussed with:: patient Assessment & Plan Assessment Current Active Medications: Generic Name Dose Route Start Last Admin Trade Name Freq PRN Reason Stop Dose Admin Acetaminophen 650 mg 06/05/24 04:36 Acetaminophen 325 Mg Tablet PO 07/05/24 04:35 Q6H PRN Fever >101.5 Albuterol/Ipratropium 3 ml 06/05/24 23:00 06/09/24 06:23 Albuterol/Ipratropium (Duoneb) Rt [place] 3 Ml Nebu INH 07/05/24 22:59 3 ml Q8HRRT NIRAV Administration Amlodipine Besylate 5 mg 06/07/24 10:15 06/09/24 07:54 Amlodipine Besylate 5 Mg Tablet PO 07/07/24 10:14 5 mg QAM NIRAV Administration Atorvastatin Calcium 40 mg 06/07/24 21:00 06/08/24 20:51 Atorvastatin Calcium 20 Mg Tablet PO 07/07/24 20:59 40 mg QPM NIRAV Administration Clopidogrel Bisulfate 75 mg 06/08/24 09:00 06/09/24 07:54 Clopidogrel Bisulfate 75 Mg Tablet PO 07/08/24 08:59 75 mg QDAY NIRAV Administration Folic Acid 1 mg 06/05/24 09:00 06/09/24 07:54 Folic Acid 1 Mg Tablet PO 07/05/24 08:59 1 mg QDAY NIRAV Administration Furosemide 40 mg 06/08/24 09:00 06/09/24 07:55 Furosemide Inj 10 Mg/Ml Vial 2 Ml IVP 07/08/24 08:59 40 mg QDAY NIRAV Administration Hydralazine HCl 25 mg 06/07/24 10:15 06/09/24 07:54 Hydralazine Hcl 25 Mg Tablet PO 07/07/24 10:14 25 mg BID NIRAV Administration Heparin Sodium/Dextrose 25,000 unit in 250 mls @ 18.01 mls/hr 06/06/24 13:45 06/08/24 20:59 Heparin In D5w Ivpb IV 06/20/24 13:44 Not Given .[id number] NIRAV Protocol 17.8 UNITS/KG/HR Alteplase, Recombinant 4 mg/ 80 mls @ 14 mls/hr 06/07/24 17:13 06/09/24 10:09 Sodium Chloride/ Sterile Water IV 06/10/24 11:29 0.7 mg/hr .Q5H43M NIRAV 14 mls/hr Administration 0.7 MG/HR Alteplase, Recombinant 4 mg/ 80 mls @ 12 mls/hr 06/07/24 18:09 06/09/24 10:09 Sodium Chloride/ Sterile Water IV 06/10/24 11:28 0.6 mg/hr .Q6H40M NIRAV 12 mls/hr Administration 0.6 MG/HR Levothyroxine Sodium 50 mcg 06/05/24 06:00 06/09/24 05:02 Levothyroxine Sodium 25 Mcg Tablet PO 07/05/24 05:59 50 mcg ACBR NIRAV Administration Potassium Chloride 20 meq 06/05/24 08:00 06/09/24 07:54 Potassium Chloride 20 Meq Tabcr PO 07/05/24 07:59 20 meq WBR NIRAV Administration Sennosides 1 tab 06/05/24 05:32 Senna Tablet PO 07/05/24 05:31 QDAY PRN CONSTIPATION Protocol Plan 82-year-old male with past medical history of atrial fibrillation with long- term, essential hypertension, multiple CVAs (most recent 1 in February of this year he was seen at [facility]), multiple DVTs s/p IVC filter, ascending aortic aneurysm, chronic diastolic heart failure (EF 55 to 60%), dementia, hypothyroidism, and BPH who was admitted to the hospital on 06/05/2024 due to DVTs 1. Atrial fibrillation long-term 2. Chronic diastolic heart failure (EF 55 to 60%) 3. Bilateral lower extremity DVT 4. Hx of multiple DVTs s/p IVC filter 5. Ascending aortic aneurysm 6. Essential hypertension ?Patient has a long history of A-fib and is not complaining of any chest pain or any other cardiac symptoms at this time. ?Patient came in due to worsening bilateral lower extremity swelling that started on Monday and did not improve with diuretics. ? Venous Doppler study was positive for extensive bilateral lower extremity DVTs ?Patient had bilateral cath alice done on 06/07/2024 ?Echo on 03/12/2024 had the following findings: Normal LV size and function. Stage I diastolic dysfunction. Estimated EF 55-60% Normal RV size and function The acending aorta is mildly dilated. 3.7cm. Trace MR, TR. ?[id number] score of 7 points indicating 11.2% risk of stroke per year ?HAS-BLED score of 4 points indicating high risk of major bleeding -Patient's was not at beside today during my examination, but if she wishes to have thrombectomy than patient will need to be transferred to [facility] or [facility] for further treatment. -BP has been well controlled can continue amlodipine and hydralazine for now. Plan: ?Continue heparin drip for now along with plavix 75mg as well as high intensity statin. ?Recommend to continue Lasix 40 mg daily, could be decreased to 20 mg daily if patient's kidney function deteriorates. ?Recommend to at some point transition patient to Eliquis 10 mg BID as per DVT protocol and then decreased to 5mg BID. -Recommend to discontinue donepezil. ?Recommend to keep potassium and magnesium above 4 and 2 respectively to avoid any further arrhythmias ?Strict RICHARD's ?Daily weights ? Low-sodium diet ?Fluid restrictions 7. Multiple CVAs 8. Hypothyroidism 9. BPH 10. Dementia ?Continue current management as per primary care team Continue rest of management as per primary team. We are grateful to be able to participate in Mr. Nelson's care. Thank you for the consult Plan of care discussed with attending Registration Manager, Dr. Miguelina Canela MD PGY-1 Attending Provider Attestation/Addendum I have personally seen and examined the patient separately on the above date of service and discussed the plan of care with the resident. I reviewed the resident Dr. Pierce consultation progress note and agree with the resident findings and plan in the note above and have also edited the documentation to reflect my findings and plan. Bert Mcintyre M.D. Interventional Cardiology.
--- NOTE | 2024-06-09 14:17 | ESPR_ITS ---
<Statement entered by Caesar Garcia MD - 06/09/24 14:20> Patient was seen and examined at the bedside. Patient is demented and responds with his head nodding. Patient was getting Doppler lower extremity during examination. Doppler ultrasound did not show any improvement in his both lower extremities deep vein thrombosis. He continues to have Cathflo on both lower extremities which will be likely removed tomorrow morning by Dr. Lim. Will likely continue heparin drip per cardiology recommendation with Plavix. All labs and orders were reviewed. I saw and examined the patient, and I agree with current management stated by Dr Matt MD,PGY1. Plan of care was discussed with the attending physician and resident physician. Disclaimer: Despite multiple revisions, due to the dictation software being used, the document bellow may not be free of grammatical errors including phonetic/typographic errors. However, this does not deter from our commitment to providing health care in the patient's best interest in mind. Dr. Radha MD, PGY 2 Documentation for date of: 06/09/24 Subjective Subjective Interval history: Patient was seen and examined at bedside this AM with , Eduarda present. No acute exents overnight. Patient tolerating diet, adequate urine output and mentation is at baseline. Patient nonverbal this a.m. Cathflo currently infusing at 0.6 Mg/hour until 06/10. Repeat venous Doppler lower extremity/L on 06/08 and 06/09 both showed no change to extensive b/l DVT Patient currently on heparin infusion and Plavix From telemetry review patient's heart rate between 80s/100s overnight with occasional PACs but otherwise sinus rhythm K3.4 and Mg 1.9. Patient repleted with KCl 60 mEq p.o. x 1 and magnesium sulfate 2 g IV x 1. Will maintain K >4 and Mg >2 at all times to avoid any further arrhythmias Patient's updated on current management plan. Exam Vital Signs Temp Pulse Resp BP Pulse Ox O2 Del Method 97.0 F 114 H 19 126/70 96 Room Air 06/09/24 12:00 06/09/24 12:00 06/09/24 12:00 06/09/24 12:00 06/09/24 12:00 06/09/24 12:00 Narrative Exam Physical Exam: GENERAL: Awake, not responsive today HEENT: NC/AT. Moist mucosa. PERRLA/EOMI. CARDIO: Irregularly irregular, no obvious murmurs, no JVD. PULM: No coughing or visible SOB. Lungs CTA B/L upper airway transmitted sounds GI: Abdomen soft, NT/ND, +BS. URO/LOANS OFFICER: +Gallagher catheter. SKIN/MSK/EXT: +2 pitting edema noted up to hips bilaterally. Lower extremities grossly edematous., Hyperpigmented over shins B/L, no wounds/rashes/amputations noted. +Pedal pulses present B/L. NEURO: Oriented x0 2/2 dementia (patient could not answer name, place or purpose). Left-sided hemiplegia. Power 1/5 LLL, power 2/5 ZOILA, power 3/5 RLL, power 4/5 RUL Objective Labs 06/09/24 04:36 06/09/24 04:36 Labs: Laboratory Results - last 24 hr 06/09/24 04:36 WBC 5.4 RBC 3.49 L Hgb 9.1 L Hct 28.7 L MCV 82 MCH 26.1 MCHC 31.7 RDW Std Deviation 53.1 H Plt Count 315 Neut % (Auto) 65 Lymph % (Auto) 26 Metcalfe % (Auto) 7 Eos % (Auto) 2 Baso % (Auto) 1 Neut # (Auto) 3.5 Lymph # (Auto) 1.4 Metcalfe # (Auto) 0.4 Eos # (Auto) 0.1 Baso # (Auto) 0.0 Immature Gran # (Auto) 0.01 H Absolute Nucleated RBC 0.00 Immature Gran % 0 Nucleated RBC % 0 PT 12.3 H INR 1.1 APTT 65.4 H Sodium 140 Potassium 3.4 Chloride 105 Carbon Dioxide 27.8 Anion Gap 7 BUN 14 Creatinine 1.0 Estim Creat Clear Calc 65.8 eGFR > 60 BUN/Creatinine Ratio 14 Glucose 95 Calculated Osmolality 279 Calcium 8.1 L Corrected Calcium 8.7 Magnesium 1.9 Total Bilirubin 0.6 AST 13 ALT 14 Alkaline Phosphatase 85 Total Protein 5.3 L Albumin 3.2 L Globulin 2.1 L Albumin/Globulin Ratio 1.5 Quality Measures Quality Measures VTE therapy Advance care planning discussed with:: spouse Assessment & Plan Assessment Current Active Medications: Generic Name Dose Route Start Last Admin Trade Name Freq PRN Reason Stop Dose Admin Acetaminophen 650 mg 06/05/24 04:36 Acetaminophen 325 Mg Tablet PO 07/05/24 04:35 Q6H PRN Fever >101.5 Albuterol/Ipratropium 3 ml 06/05/24 23:00 06/09/24 06:23 Albuterol/Ipratropium (Duoneb) Rt [place] 3 Ml Nebu INH 07/05/24 22:59 3 ml Q8HRRT NIRAV Administration Amlodipine Besylate 5 mg 06/07/24 10:15 06/09/24 07:54 Amlodipine Besylate 5 Mg Tablet PO 07/07/24 10:14 5 mg QAM NIRAV Administration Atorvastatin Calcium 40 mg 06/07/24 21:00 06/08/24 20:51 Atorvastatin Calcium 20 Mg Tablet PO 07/07/24 20:59 40 mg QPM NIRAV Administration Clopidogrel Bisulfate 75 mg 06/08/24 09:00 06/09/24 07:54 Clopidogrel Bisulfate 75 Mg Tablet PO 07/08/24 08:59 75 mg QDAY NIRAV Administration Folic Acid 1 mg 06/05/24 09:00 06/09/24 07:54 Folic Acid 1 Mg Tablet PO 07/05/24 08:59 1 mg QDAY NIRAV Administration Furosemide 40 mg 06/08/24 09:00 06/09/24 07:55 Furosemide Inj 10 Mg/Ml Vial 2 Ml IVP 07/08/24 08:59 40 mg QDAY NIRAV Administration Hydralazine HCl 25 mg 06/07/24 10:15 06/09/24 07:54 Hydralazine Hcl 25 Mg Tablet PO 07/07/24 10:14 25 mg BID NIRAV Administration Heparin Sodium/Dextrose 25,000 unit in 250 mls @ 18.01 mls/hr 06/06/24 13:45 06/08/24 20:59 Heparin In D5w Ivpb IV 06/20/24 13:44 Not Given .[id number] NIRAV Protocol 17.8 UNITS/KG/HR Alteplase, Recombinant 4 mg/ 80 mls @ 14 mls/hr 06/07/24 17:13 06/09/24 10:09 Sodium Chloride/ Sterile Water IV 06/10/24 11:29 0.7 mg/hr .Q5H43M NIRAV 14 mls/hr Administration 0.7 MG/HR Alteplase, Recombinant 4 mg/ 80 mls @ 12 mls/hr 06/07/24 18:09 06/09/24 10:09 Sodium Chloride/ Sterile Water IV 06/10/24 11:28 0.6 mg/hr .Q6H40M NIRAV 12 mls/hr Administration 0.6 MG/HR Levothyroxine Sodium 50 mcg 06/05/24 06:00 06/09/24 05:02 Levothyroxine Sodium 25 Mcg Tablet PO 07/05/24 05:59 50 mcg ACBR NIRAV Administration Potassium Chloride 20 meq 06/05/24 08:00 06/09/24 07:54 Potassium Chloride 20 Meq Tabcr PO 07/05/24 07:59 20 meq WBR NIRAV Administration Sennosides 1 tab 06/05/24 05:32 Senna Tablet PO 07/05/24 05:31 QDAY PRN CONSTIPATION Protocol Plan 83-year-old male patient with past medical history for dementia, atrial fibrillation, CVA, uncontrolled hypertension, history of multiple DVT s/p IVC filter, hypothyroidism, BPH was brought to ED for bilateral lower extremity swelling will be admitted to monitor for DVT progression and started on Eliquis anticoagulation; will also be given IV diuretics for heart failure exacerbation. 1. Extensive Bilateral Lower Extremity DVT?acute 2. History of DVT s/p IVC filter [2010] 3. Chronic lower extremity venous insufficiency Patient has hx of DVT in the past with [place] of IVC [place] [address] Kelly. Doppler U/S of lower extremities confirms presence of severe b/l DVT According to patient's in 2015 at [facility] he had IV sclerotherapy with venous stripping of the lower extremity varicose veins bilaterally. Dr. Page, vascular surgeon was curb sided. He recommended patient would need catheter directed thrombolysis by interventional radiology. Patient had Cathflo started on 06/07 to B/L lower extremities Cathflo currently infusing at 0.6 Mg/hour until 06/10. Repeat venous Doppler lower extremity/L on 06/08 and 06/09 both showed no change to extensive b/l DVT Plan: ? Continue heparin infusion for DVT in anticipation for possible procedure ? Transfer nurse contacted and transfer initiated. 4. Acute on chronic diastolic Heart Failure Exacerbation [EF 55-60%] Patient presenting with b/l lower extremity swelling likely 2/2 to both DVT and possible HF exacerbation +2 pitting edema up to b/l hips noted on exam Last ECHO from 03/12/24 shows: Normal LV size and function. Stage I diastolic dysfunction. Estimated EF 55-60% Normal RV size and function The acending aorta is mildly dilated. 3.7cm. Trace MR, TR. Plan: ? Strict input output charting ? Daily weights ? 2G sodium restricted diet ? 1500 cc fluid restriction ? Continue Lasix 40 Mg IV daily ? Continue KCl 20 mEq p.o. every morning ? Follow-up outpatient for AAA monitoring 5. Ascending Aorta Aneurysm Last ECHO from 03/12/24 shows: Normal LV size and function. Stage I diastolic dysfunction. Estimated EF 55-60% Normal RV size and function The acending aorta is mildly dilated. 3.7cm. Trace MR, TR.] 6. Atrial Fibrillation, NVR?long-term persistent CHADVASc score of 6 (Age >85, hypertension, CVA, vascular disease) Patient has one prior EKG from February showing atrial fibrillation Currently presenting with irregular heart rate but with NVR From telemetry review patient's heart rate between 80s/100s overnight with occasional PACs but otherwise sinus rhythm K3.4 and Mg 1.9. Patient repleted with KCl 60 mEq p.o. x 1 and magnesium sulfate 2 g IV x 1. Will maintain K >4 and Mg >2 at all times to avoid any further arrhythmias Plan: ? Patient on anticoagulation with Heparin Infusion ? Patient not on beta-blockers due to developing symptomatic bradycardia in the past 7. 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 Essential hypertension 9. 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 Hypothyroidism 11. BPH Patient follows Dr. Mcintyre outpatient who started patient on Plavix 75mg po qday and Lasix 20mg po every other day Patient's states that after his first 2 strokes in 2000 in 2015 he had no functional or memory deficits. However after his stroke in February 2024 he was left bedbound with severe dysarthria. Plan: - Continue Amlodipine 5 mg po daily - Continue Hydralazine 25 mg po BID ? Continue levothyroxine home dose 50mcg po qday ? Continue Plavix 75 Mg p.o. daily for stroke prophylaxis Health maintenance: Disposition: Pending completion of Cathflo infusion on 06/10. Diet: Cardiac Lines: pIVs GI Prophylaxis: None Thrombo Prophylaxis: Heparin infusion Code status: FULL CODE Plan of care discussed with Attending Dr. Corrales and PGY2 Dr. Radha Gutierrez MD PGY 1 Attending Provider Attestation/Addendum IYuli, DO, attest that I was physically present for the mosley portions of the service and evaluated the patient with the resident and I reviewed and discussed the case with the resident and agree with the resident's findings and plans of care as documented above Patient seen and evaluated this AM. Patient undergoing US exam at time of evaluation. Patient alert and oriented x 1. B/l LE edema appears improved, now 1+ pitting. Will continue with IV diuresis. Patient is scheduled for venogram tomorrow morning. Suspect that this DVT is likely chronic as ultrasound venous Doppler done yesterday was unchanged after 24 hours of alteplase. Swelling is most likely due to fluid retention rather than acute DVT. Nevertheless, will continue with Cathflo and heparin drip at this time. was not at bedside at time of my evaluation.
[2024-06-09] MEDS: Heparin/D5w 25K 250 ML Ivpb 25,000 UNIT/250 ML BAG 11.899 UNIT IV (14:57)
--- NOTE | 2024-06-09 16:00 | PC.SS ---
Rounding: pending cardio reccs and removal of cath flow
[2024-06-09] MEDS: Magnesium Sulfate 2 GM Ivpb 2 GM/50 ML BAG IV (16:22)
[2024-06-09] MEDS: POTASSIUM CHLORIDE 20 mEq TABCR 40 MEQ PO (16:23)
[2024-06-09] MEDS: ATORVASTATIN CALCIUM 20 MG TABLET 40 MG PO (20:14)
[2024-06-10] VITALS (10 sets, daily range): BP systolic 112–127; BP diastolic 60–84; PULSE 53–96; RESP 15–20; TEMP 36.2–36.9; O2SAT 91–99; BMI 29.2
[2024-06-10] MEDS: CATHFLO (ALTEPLASE) INJ 4 MG in SODIUM CHLORIDE 0.9% 76 ML, Sterile Water 4 ML 12 MG IV ×2 (00:53→09:07)
[2024-06-10] MEDS: LEVOTHYROXINE SODIUM 25 MCG TABLET 50 MCG PO (05:26)
[2024-06-10] MEDS: ALBUTEROL/IPRATROPIUM (Duoneb) RT SOL 3 ML NEBU INH ×2 (06:19→14:59)
[2024-06-10 06:27] LABS: Basophils % (Auto) 1 % (0-2.5); Eosinophils # (Auto) 0.1 Thou/mm3 (0.0-0.5); Eosinophils % (Auto) 1 % (0-10); Hematocrit 29.3 % (41.0-53.0); Hemoglobin 9.3 g/dL (13.5-16.0); Immature Granulocytes % (Auto) 0 % (0-0); Immature Granulocytes Auto 0.02 Thou/mm3 (0.00-0.00); Lymphocytes # (Auto) 1.3 Thou/mm3 (1.0-4.8); Lymphocytes % (Auto) 23 % (10-50); Mean Corpuscular HGB Conc 31.7 g/dl (31.0-37.0); Mean Corpuscular Hemoglobin 26.1 pg (25.0-35.0); Mean Corpuscular Volume 82 fL (80-100); Monocytes # (Auto) 0.4 Thou/mm3 (0.0-0.8); Monocytes % (Auto) 7 % (0-12); Neutrophils # (Auto) 3.8 Thou/mm3 (1.8-7.7); Neutrophils % (Auto) 68 % (37-80); Nucleated Red Blood Cell % 0 /100 WBC (0); Platelet Count 317 Thou/mm3 (140-440); Red Blood Count 3.57 Miln/mm3 (4.50-5.90); White Blood Count 5.7 Thou/mm3 (3.8-10.6)
[2024-06-10] MEDS: CATHFLO (ALTEPLASE) INJ 4 MG in SODIUM CHLORIDE 0.9% 76 ML, Sterile Water 4 ML 14 MG IV (06:31)
[2024-06-10 06:44] LABS: Alanine Aminotransferase 16 U/L (10-49); Albumin, Serum 3.3 gm/dL (3.4-4.8); Albumin/Globulin Ratio 1.3 (1.2-2.2); Alkaline Phosphatase 88 U/L (46-116); Anion Gap 9 (7-16); Aspartate Amino Transferase 21 U/L (0-34); BUN/Creatinine Ratio 11 Ratio (12-20); Bilirubin,Total 0.7 mg/dL (0.3-1.2); Blood Urea Nitrogen 11 mg/dL (9-23); Calcium (Corrected) 9.6 mg/dL (8.5-10.1); Carbon Dioxide 26.3 mMol/L (20.0-31.0); Chloride 106 mMol/L (98-107); Estimated Creatinine Clearance 65.4 mL/min (>60); Globulin 2.6 gm/dL (2.3-3.5); Glucose 88 mg/dL (74-106); Magnesium 2.1 mg/dL (1.6-2.6); Osmolality,Calculated 279 (275-295); Potassium 3.4 mMol/L (3.4-5.1); Sodium 141 mMol/L (136-145); Total Protein 5.9 gm/dL (5.7-8.2); eGFR > 60 See Note
[2024-06-10 06:57] LABS: INR 1.1 (0.9-1.3); Partial Thromboplastin Time 53.2 Seconds (22.0-36.0); Prothrombin Time 12.1 Seconds (9.0-12.2)
[2024-06-10] MEDS: FUROSEMIDE INJ 10 MG/ML VIAL 2 ML 40 MG IVP (08:27)
[2024-06-10] MEDS: amLODIPine BESYLATE 5 MG TABLET PO (08:28)
[2024-06-10] MEDS: POTASSIUM CHLORIDE 10% 20 MEQ/15 ML UDC 40 MEQ PO (08:28)
[2024-06-10] MEDS: CLOPIDOGREL BISULFATE 75 MG TABLET PO (08:29)
[2024-06-10] MEDS: POTASSIUM CHLORIDE 20 mEq TABCR PO (08:29)
[2024-06-10] MEDS: hydrALAZINE HCL 25 MG TABLET PO (08:29)
[2024-06-10] MEDS: FOLIC ACID 1 MG TABLET PO (08:29)
--- NOTE | 2024-06-10 09:40 | PC.SS ---
SS and Dr. Corrales met with to discuss patient's dc. Attending physician, Dr. Corrales provided with medical update explaining patient's condition. is requesting for pt to return home with [facility]. explained [facility]. has explained Dr. Corrales can order PT at d/c. is aware to follow up with [facility] for pt continue with PT at home in June. is requesting for to return home upon d/c and she will provide transportation. states she has 4 walkers, 2 wheelchair, and hospital bed.
--- NOTE | 2024-06-10 11:14 | ESPR_ITS ---
Documentation for date of: 06/10/24 Subjective Subjective Interval history: Patient was seen at bedside this morning. No overnight events. Recommend to transition patient to Eliquis 10 mg BID as per DVT protocol and then decreased to 5mg BID, along with plavix 75mg as well as high intensity statin. Potassium 3.4 and mg 2.1, recommend to replete to keep above 4 and 2 respectively. Recommend to discontinue donepezil. BP has been well controlled can continue amlodipine and hydralazine for now. -Patient's was at beside today during my examination, she stated that a [facility] patient had another procedure for his DVT which was more invasive, but showed positive results. She mentioned that she has the physician's name who did this procedure and it was recommended that she have the patient follow up with this specialist if she wishes upon discharge. Patient did not want any invasive procedures at the present point of time and would not want to like to think over the option of going to [facility] for possible catheter directed thrombectomy Exam Vital Signs Temp Pulse Resp BP Pulse Ox O2 Del Method 97.3 F 87 15 127/69 91 L Room Air 06/10/24 08:00 06/10/24 08:29 06/10/24 08:00 06/10/24 08:29 06/10/24 08:00 06/10/24 08:00 Narrative Exam Physical exam limited due to patient's dementia General: Patient has dementia, in no acute distress Eyes: PERRL, EOMI. Anicteric, vision grossly intact Ears: No visible ear discharge, Hearing mildly impaired Nose: No nasal discharge. Mouth/Throat: Dry mucous membranes, no redness, no lesions. Neck: Neck supple, non-tender, no cervical lymphadenopathy. Lungs: Clear BURKE to auscultation and percussion, No accessory muscle use. Cardio: Normal S1/S2, irregularly irregular rhythm, no murmurs, no JVD Abdomen: Soft, but distended, non-tender, no palpable masses, peristalsis present, no guarding or rebound. Extremities: Symmetrical, no significant deformities, 3+ pitting edema, non- tender, peripheral pulses presents. Skin: No rashes, no lesions, warm to touch. Neuro: Patient has some left-sided hemiplegia and did not follow commands likely due to his dementia, did not move both upper extremities. Psych: Flat affect Objective Labs 06/10/24 04:33 06/10/24 04:33 Labs: Laboratory Results - last 24 hr 06/10/24 04:33 WBC 5.7 RBC 3.57 L Hgb 9.3 L Hct 29.3 L MCV 82 MCH 26.1 MCHC 31.7 RDW Std Deviation 53.0 H Plt Count 317 Neut % (Auto) 68 Lymph % (Auto) 23 [place] % (Auto) 7 Eos % (Auto) 1 Baso % (Auto) 1 Neut # (Auto) 3.8 Lymph # (Auto) 1.3 [place] # (Auto) 0.4 Eos # (Auto) 0.1 Baso # (Auto) 0.0 Immature Gran # (Auto) 0.02 H Absolute Nucleated RBC 0.00 Immature Gran % 0 Nucleated RBC % 0 PT 12.1 INR 1.1 APTT 53.2 H D Sodium 141 Potassium 3.4 Chloride 106 Carbon Dioxide 26.3 Anion Gap 9 BUN 11 Creatinine 1.0 Estim Creat Clear Calc 65.4 eGFR > 60 BUN/Creatinine Ratio 11 L Glucose 88 Calculated Osmolality 279 Calcium 9.0 Corrected Calcium 9.6 Magnesium 2.1 Total Bilirubin 0.7 AST 21 ALT 16 Alkaline Phosphatase 88 Total Protein 5.9 Albumin 3.3 L Globulin 2.6 Albumin/Globulin Ratio 1.3 Quality Measures Quality Measures VTE therapy Advance care planning discussed with:: patient and spouse Assessment & Plan Assessment Current Active Medications: Generic Name Dose Route Start Last Admin Trade Name Freq PRN Reason Stop Dose Admin Acetaminophen 650 mg 06/05/24 04:36 Acetaminophen 325 Mg Tablet PO 07/05/24 04:35 Q6H PRN Fever >101.5 Albuterol/Ipratropium 3 ml 06/05/24 23:00 06/10/24 06:19 Albuterol/Ipratropium (Duoneb) Rt [place] 3 Ml Nebu INH 07/05/24 22:59 3 ml Q8HRRT NIRAV Administration Amlodipine Besylate 5 mg 06/07/24 10:15 06/10/24 08:28 Amlodipine Besylate 5 Mg Tablet PO 07/07/24 10:14 5 mg QAM NIRAV Administration Atorvastatin Calcium 40 mg 06/07/24 21:00 06/09/24 20:14 Atorvastatin Calcium 20 Mg Tablet PO 07/07/24 20:59 40 mg QPM NIRAV Administration Clopidogrel Bisulfate 75 mg 06/08/24 09:00 06/10/24 08:29 Clopidogrel Bisulfate 75 Mg Tablet PO 07/08/24 08:59 75 mg QDAY NIRAV Administration Folic Acid 1 mg 06/05/24 09:00 06/10/24 08:29 Folic Acid 1 Mg Tablet PO 07/05/24 08:59 1 mg QDAY NIRAV Administration Furosemide 40 mg 06/11/24 09:00 Furosemide Inj 10 Mg/Ml 4ml Vial IVP 07/08/24 08:59 QDAY NIRAV Hydralazine HCl 25 mg 06/07/24 10:15 06/10/24 08:29 Hydralazine Hcl 25 Mg Tablet PO 07/07/24 10:14 25 mg BID NIRAV Administration Heparin Sodium/Dextrose 25,000 unit in 250 mls @ 18.01 mls/hr 06/06/24 13:45 06/09/24 14:57 Heparin In D5w Ivpb IV 06/20/24 13:44 11.76 units/kg/hr .[id number] NIRAV 11.899 mls/hr Administration Protocol 17.8 UNITS/KG/HR Alteplase, Recombinant 4 mg/ 80 mls @ 14 mls/hr 06/07/24 17:13 06/10/24 06:31 Sodium Chloride/ Sterile Water IV 06/10/24 11:29 0.7 mg/hr .[id number] NIRAV 14 mls/hr Administration 0.7 MG/HR Alteplase, Recombinant 4 mg/ 80 mls @ 12 mls/hr 06/07/24 18:09 06/10/24 09:07 Sodium Chloride/ Sterile Water IV 06/10/24 11:28 0.6 mg/hr .Q6H40M NIRAV 12 mls/hr Administration 0.6 MG/HR Levothyroxine Sodium 50 mcg 06/05/24 06:00 06/10/24 05:26 Levothyroxine Sodium 25 Mcg Tablet PO 07/05/24 05:59 50 mcg ACBR NIRAV Administration Potassium Chloride 20 meq 06/05/24 08:00 06/10/24 08:29 Potassium Chloride 20 Meq Tabcr PO 07/05/24 07:59 20 meq WBR NIRAV Administration Sennosides 1 tab 06/05/24 05:32 Senna Tablet PO 01/10/25 05:31 QDAY PRN CONSTIPATION Protocol Plan 82-year-old male with past medical history of atrial fibrillation with long- term, essential hypertension, multiple CVAs (most recent 1 in February of this year he was seen at [facility]), multiple DVTs s/p IVC filter, ascending aortic aneurysm, chronic diastolic heart failure (EF 55 to 60%), dementia, hypothyroidism, and BPH who was admitted to the hospital on 06/05/2024 due to DVTs 1. Atrial fibrillation long-term 2. Chronic diastolic heart failure (EF 55 to 60%) 3. Bilateral lower extremity DVT 4. Hx of multiple DVTs s/p IVC filter 5. Ascending aortic aneurysm 6. Essential hypertension ?Patient has a long history of A-fib and is not complaining of any chest pain or any other cardiac symptoms at this time. ?Patient came in due to worsening bilateral lower extremity swelling that started on Monday and did not improve with diuretics. ? Venous Doppler study was positive for extensive bilateral lower extremity DVTs ?Patient had bilateral cath alice done on 06/07/2024 ?Echo on 03/12/2024 had the following findings: Normal LV size and function. Stage I diastolic dysfunction. Estimated EF 55-60% Normal RV size and function The acending aorta is mildly dilated. 3.7cm. Trace MR, TR. ?[id number] score of 7 points indicating 11.2% risk of stroke per year ?HAS-BLED score of 4 points indicating high risk of major bleeding -Patient's was at beside today during my examination, she stated that a [facility] patient had another procedure for his DVT which was more invasive, but showed positive results. She mentioned that she has the physician's name who did this procedure and it was recommended that she have the patient follow up with this specialist if she wishes upon discharge. -Patient did not want any invasive procedures at the present point of time and would not want to like to think over the option of going to [facility] for possible catheter directed thrombectomy -BP has been well controlled can continue amlodipine and hydralazine for now. Plan: ?Recommend to continue Lasix 40 mg every other day ?Recommend to transition patient to Eliquis 10 mg BID as per DVT protocol and then decreased to 5mg BID, along with plavix 75mg as well as high intensity statin. . -Recommend to discontinue donepezil. ?Recommend to keep potassium and magnesium above 4 and 2 respectively to avoid any further arrhythmias ?Strict RICHARD's ?Daily weights ? Low-sodium diet ?Fluid restrictions 7. Multiple CVAs 8. Hypothyroidism 9. BPH 10. Dementia ?Continue current management as per primary care team Continue rest of management as per primary team. We are grateful to be able to participate in Mr. Nelson's care. Thank you for the consult Plan of care discussed with attending Grocery Clerk, Dr. Miguelina Canela MD PGY-1 Attending Provider Attestation/Addendum I have personally seen and examined the patient separately on the above date of service and discussed the plan of care with the resident. I reviewed the resident Dr. Pierce consultation progress note and agree with the resident findings and plan in the note above and have also edited the documentation to reflect my findings and plan. Bert Mcintyre M.D. Interventional Cardiology
[2024-06-10] MEDS: Heparin/D5w 25K 250 ML Ivpb 25,000 UNIT/250 ML BAG 11.899 UNIT IV (11:49)
[2024-06-10] MEDS: POTASSIUM CHLORIDE 10% 20 MEQ/15 ML UDC PO (11:50)
--- NOTE | 2024-06-10 12:53 | PC.NURSE ---
Spoke with about the alvares change. If she wanted us to change it we would. She is going to take to Dr. Caro and have him change folley. Patient has had many issued during folley changes. She feels more comfortable with Dr. Caro recommendations.
--- NOTE | 2024-06-10 12:57 | PC.NURSE ---
Dr. Somers called and notified me patient does not want PT to work with . She wants the venogram done and patient to be discharged
--- NOTE | 2024-06-10 12:59 | PC.NURSE ---
was asking about whats going on when is patient going to get venogram done. I explained to her I gave report to Ratings Analyst and soon as they are ready someone will come and flower buncher or picker patient. Will continue to monitor patient.
[2024-06-10] MEDS: APIXABAN 2.5 MG TABLET 10 MG PO (14:29)
--- NOTE | 2024-06-10 14:35 | PC.NURSE ---
Discontinued heparin drip and gave patient the eliqis in cottage cheese. is upset no one came and notified her about procedure being canceled. She wanted me to take IV's out of his feet. I explained to her that is one of the last things to remove before discharge. She told me to get the show on the road. I explained to her I would call doctors so they can explain DC instructions. Will continue to monitor patient.
--- NOTE | 2024-06-10 14:41 | PC.NURSE ---
Dr. Kraft came and spoke with at bedside. Will continue to monitor patient.
--- NOTE | 2024-06-10 15:50 | ESDS_ITS ---
<Statement entered by Yuli Corralse DO - 06/11/24 08:26> I, Yuli Corrales DO, attest that I was physically present for the mosley portions of the service and evaluated the patient with the resident and I reviewed and discussed the case with the resident and agree with the resident's findings and plans of care as documented above <Statement entered by Caesar Garcia MD - 06/10/24 16:13> I saw and examined the patient, and I agree with current management stated by Dr Matt MD,PGY1. Plan of care was discussed with the attending physician and resident physician. Disclaimer: Despite multiple revisions, due to the dictation software being used, the document bellow may not be free of grammatical errors including phonetic/typographic errors. However, this does not deter from our commitment to providing health care in the patient's best interest in mind. Dr. Radha MD, PGY 2 Planned Discharge Date 06/10/24 DS: Providers Provider Date of admission: 06/05/24 04:36 Primary care physician: Mary Kate Valladares MD Admitting Provider: Irvin Mcdowell MD Attending Provider on Admission: Martínez Horowitz DO Consults: 06/05/24 05:33 Referral Physical Therapy Routine Comment: Physician Instructions: 06/06/24 10:31 Referral - Light Bulb Tester Routine Service Needed for Transfer: Interventional Radiology Addl Comments:: Patient needs to get transferred out for IR guided catheter based thrombolysis for both lower extremities due to severe peripheral arterial disease. Vascular surgeon, Dr. Ji was consulted and he recommended to transfer the patient out for this procedure via Interventional radiology. 06/07/24 15:55 Consult to Cardiology Routine Comment: Consulting Provider: Bert Mcintyre Attending Provider on DC: Chao Gutierrez MD Discharging Provider: Chao Gutierrez MD DS: Diagnosis Problem List Completed Was Problem List Reviewed/Reconciled?: Yes Hospital Course Hospital Course Hospital course: 83-year-old male patient with past medical history for dementia, atrial fibrillation, CVA, uncontrolled hypertension, history of multiple DVT s/p IVC filter, hypothyroidism, BPH was brought to ED for bilateral lower extremity swelling will be admitted to monitor for DVT progression and started on Eliquis anticoagulation; will also be given IV diuretics for heart failure exacerbation. For his B/L DVT he was treated with heparin infusion and Dr. Page, vascular surgeon was curb sided. He recommended patient would need catheter directed thrombolysis by interventional radiology. Initially transfer was initiated, but then was consulted as Cathflo was available at [facility] and the procedure was able to be done by Dr. Li interventional radiologist. Patient was treated with Cathflo for 72 hours and repeat B/L lower extremity Doppler ultrasounds showed no improvement of DVT. Explained to patient's that the DVT is likely chronic as patient has an IVC filter that was placed in 2009. Bilateral lower extremity swelling is likely due to acute on chronic diastolic heart failure exacerbation for which she will need to continue with Lasix 20 mg p.o. daily. Advised patient's to check daily weights to ensure that he is not retaining fluid, to watch sodium intake and limit fluid intake to 1.5 to 1.8 L. Bilateral lower extremities and improved with IV diuresis. Patient is stable for discharge home at this time and to follow-up with her waste/materials exchange specialist at [facility] as her preferred provider. Upon discharge patient was transitioned to Eliquis 10 Mg p.o. twice daily for 1 week followed by 5 mg p.o. twice daily and heparin infusion was discontinued. Patient's was made aware of bleeding risks and fall precautions. PT was offered, but patient's stated that she has physical therapy services at home and does not need to do physical therapy here in the hospital. She would only need home health services for physical therapy which was ordered. For his acute on chronic diastolic heart failure exacerbation patient was treated with Lasix 20 Mg IV daily after which his lower extremity swelling improved. For his dementia donepezil was discontinued as per cardiology recommendations as he stated this can cause bradycardia. All labs are now returning to baseline. Patient is now clinically stable to be discharged to home with home health. Discharge diagnoses: 1. 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 History of DVTs s/p IVC filter [2009] 3. Chronic lower extremity venous insufficiency 4. Acute on chronic diastolic heart failure exacerbation [EF 55-60%]?resolving 5. Ascending aorta aneurysm 6. Atrial fibrillation, NVR?long-term persistent 7. Dementia 8. Essential hypertension 9. History of multiple CVAs 2000, 2015, February 2024 10. Hypothyroidism 11. BPH Discharge plan: ?Take Plavix 75 mg once daily, start Eliquis starter pack based on instructions with 10 mg twice daily for 7 days and then 5 mg twice daily for 3 months ?Take Lasix 20 mg every day with KCl 8 mEq and hold Lasix if blood pressure drops below 100/60 mmHg ?Track your weight every day and if you gain 2-3 pounds he can take an extra dose of Lasix 20 mg ?Recommended fluid restriction up to 7672-8388 mL every day ?Take amlodipine 5 mg, atorvastatin 40 mg, folic acid 1 mg once daily, levothyroxine 50 mcg once a day and hydralazine 25 mg twice daily ?Follow-up with PCP as outpatient within 2 weeks ?Follow up with your Urologist outpatient within 2 weeks -In case of emergency, call 911 or come back to the ED We are grateful to be able to participate in Mr. Nelson's care. We wish him the best. Plan of care discussed with Attending Dr. Corrales and PGY2 Dr. Radha Gutierrez MD PGY 1 Time Spent with Patient Time attestation: Total time spent providing and/or coordinating discharge services: Greater than 30 minutes Home Health Home Health Referral Orders: 06/10/24 09:40 Home Health Referral Routine Reason For Exam: dvt Home-Bound The patient must either because of illness or injury, need the aid of supportive devices such as crutches, canes, wheelchairs, and walkers; the use of special transportation; or the assistance of another person in order to leave their place of residence; OR have a condition such that leaving his or her home is medically contraindicated. In addition, the patient also meets the following criteria: patient is normally unable to leave the home and leaving home requires considerable taxing effort. Addendum to Home Health Certification Practitioner's Certification: I certify that the patient has been under my care in the hospital and the care of attending physician (see below). We had a ggdf-wo-jvil encounter on (see date below). My clinical findings indicate that the patient is home bound per the above criteria and the Home Health Services noted in these orders are medically necessary. The primary reason for the kese-eq-sker encounter is related to the fact that the patient requires home health services. Date Certifying Gahj-ya-Jtrk Physician Encounter: 06/05/24 Physician's Name who will Assume Oversight for Services: Mary Kate Valladares Physician's Phone No.who will Assume Oversight for Service: OIL WELL GUN PERFORATOR OPERATOR - Community Resources: No PT to Evaluate: Yes: 3 weeks PT to evaluate and provide a treatmnet plan to increase patient's mobility and strength. Wound Care: No IV Therapy: No RN Safety Evaluation: Yes RN to evaluate and create a plan of care that will produce positive outcomes. Palliative Treatment: No Palliative treatment and evaluate the need for hospice. Home Health Aide - Personal Care: No Home Health Aide to assist with any ADL's. Exam Vital Signs Temp Pulse Resp BP Pulse Ox O2 Del Method 97.2 F 55 L 18 122/70 99 Room Air 06/10/24 12:00 06/10/24 15:00 06/10/24 15:00 06/10/24 12:00 06/10/24 15:00 06/10/24 12:00 Narrative Exam Physical Exam: GENERAL: Awake, not responsive today HEENT: NC/AT. Moist mucosa. PERRLA/EOMI. CARDIO: Irregularly irregular, no obvious murmurs, no JVD. PULM: No coughing or visible SOB. Lungs CTA B/L upper airway transmitted sounds GI: Abdomen soft, NT/ND, +BS. URO/LOG BUYER: +Gallagher catheter. SKIN/MSK/EXT: +1 pitting edema noted up to hips bilaterally, Hyperpigmented over shins B/L, no wounds/rashes/amputations noted. +Pedal pulses present B/L. NEURO: Oriented x0 2/2 dementia (patient could not answer name, place or p urpose). Left-sided hemiplegia. Power 1/5 LLL, power 2/5 ZOIAL, power 3/5 RLL, power 4/5 RUL Discharge Plan Plan Patient Disposition: Home w/HOME HEALTH Patient condition on transfer: Stable Care Plan Goals: Take Plavix 75 mg once daily, start Eliquis starter pack based on instructions with 10 mg twice daily for 7 days and then 5 mg twice daily for 3 months Take Lasix 20 mg every day with KCl 8 mEq and hold Lasix if blood pressure drops below 100/60 mmHg Track your weight every day and if you gain 2-3 pounds he can take an extra dose of Lasix 20 mg Recommended fluid restriction up to 4521-0767 mL every day Take amlodipine 5 mg, atorvastatin 40 mg, folic acid 1 mg once daily, levothyroxine 50 mcg once a day and hydralazine 25 mg twice daily Follow-up with PCP as outpatient within 2 weeks Follow up with your Urologist as outpatient within 2 weeks In case of emergency, call 911 or come back to the ED Patient will discharge to home Prescriptions/Referrals Prescriptions/Med Rec: [place] DVT-PE Treat 30D Start 5 mg (74 tabs) tablets,dose pack 5 mg PO BID Qty: 74 0RF clopidogrel [Plavix] 75 mg tablet 75 mg PO QDAY Qty: 30 0RF atorvastatin 40 mg tablet 40 mg PO HS Qty: 30 0RF furosemide [Lasix] 20 mg tablet 20 mg PO QDAY Qty: 30 0RF potassium chloride 8 mEq capsule, extended release 8 meq PO QDAY 30 Days Qty: 30 0RF Continued cyanocobalamin (vitamin B-12) 500 mcg Tablet 1,000 mcg PO QDAY levothyroxine 50 mcg Tablet 50 mcg PO QDAY folic acid 1 mg Tablet 1 mg PO QDAY amlodipine 5 mg tablet 5 mg PO QMORNING Changed hydralazine 25 mg tablet 25 mg PO BID Qty: 30 0RF Discontinued atorvastatin 80 mg Tablet 40 mg PO QPM donepezil 5 mg Tablet 2.5 mg PO QPM furosemide [Lasix] 40 mg tablet 40 mg PO EVERYOTHERDAY Referrals: Mary Kate Valladares MD [Primary Care Provider] - Patient/Caregiver Discharge Instructions Education Materials: Understanding Deep Vein Thrombosis, ED Deep Vein Thrombosis (DVT) Print Language: Liberian Stand Alone Forms: Faby Award Info., Patient Portal Info Letter Discharge Order Discharge Orders: Discharge (Routine); Ordered 06/10/24 Ordered By: Caesar Garcia Quality Discharge Quality Measures VTE therapy
--- NOTE | 2024-06-10 16:13 | PC.NURSE ---
Dr. Gomez is at patients bedside with and son in law explaining all labs and answering all questions. Pat and Holli are at bedside changing brief and getting patient ready for DC. Once questions are all answered I will continue with DC.
--- NOTE | 2024-06-10 18:00 | PD.RESEVENT ---
Documentation for date of: 06/10/24 Event Note Event Note: At about 4pm, went to bedside with Dr. Garcia, PGY-2 and Rachel RN, to speak with patient, patient's , and son. Greeted patient's and asked permission to enter the room, and stated am available to answer any questions. Brought the computer on wheels and together with the , we extensively reviewed the patient's labs, chest x-ray and ultrasound imaging and radiologist impressions, pathophysiology, and reviewed all medications upon discharge together. Patient, patient's , and family member given opportunity to ask any questions and clarify any miscommunication. Tammie Gomez MD PGY-3
--- NOTE | 2024-06-10 18:25 | PC.NURSE ---
Patients called and wanted to know exactly what medications I had given to patient today. I gave her the list and answered all questions.
--- NOTE | 2024-06-11 09:09 | PC.CM ---
Addendum entered by Fina Hinkle RN 06/11/24 10:05: [facility] will resume care and they will open patient tomorrow. Original Note: Patient opened to [facility]. I faxed information today. Pending start of care date.
== END 2024-06-10 16:54 | disposition home health service (06) | DRG 299 ==
LOC: SERX 04:31 → SERHOLD 05:49 → S3NX 06:00
PROVIDERS: Internal Medicine; Student in an Organized Health Care Education/Training Program; Admitting Provider Internal Medicine; Emergency Provider Emergency Medicine; PCP Family Medicine; Visit Provider Student in an Organized Health Care Education/Training Program
DX: I82.513 Chronic embolism and thrombosis of femoral vein, bilateral (principal); I50.33 Acute on chronic diastolic (congestive) heart failure; I48.19 Other persistent atrial fibrillation; I11.0 Hypertensive heart disease with heart failure; I82.533 Chronic embolism and thrombosis of popliteal vein, bilateral; F03.90 Unspecified dementia, unspecified severity, without behavioral disturbance, psychotic disturbance, mood disturbance, and anxiety; E03.9 Hypothyroidism, unspecified; N40.1 Benign prostatic hyperplasia with lower urinary tract symptoms; R33.8 Other retention of urine; I25.10 Atherosclerotic heart disease of native coronary artery without angina pectoris; I71.21 Aneurysm of the ascending aorta, without rupture; E78.5 Hyperlipidemia, unspecified; I69.322 Dysarthria following cerebral infarction; I73.9 Peripheral vascular disease, unspecified; I87.2 Venous insufficiency (chronic) (peripheral); Z95.828 Presence of other vascular implants and grafts; Z79.01 Long term (current) use of anticoagulants; Z79.02 Long term (current) use of antithrombotics/antiplatelets; Z79.890 Hormone replacement therapy; Z79.899 Other long term (current) drug therapy
CPT/HCPCS: 36415; 71045; 75820; 80048; 80053; 81001; 82040; 83690; 83735; 83880; 84100; 84132; 84484; 85025; 85610; 85730; 93005; 93225; 93970; 94640; 94664; 96365; 97162; 99285; A4216; A9270; J1643; J1644; J1940; J2997; J3475; J3480; J7050; Q9967

== ENCOUNTER 2024-06-28 12:29 | Emergency (ER) | payer MEDICARE, BC, OTHER, SELFPAY ==
--- NOTE | 2024-06-28 12:30 | EKG_ITS ---
[facility] Test Date: 2024-06-28 Pat Name: ILEANA OROZCO Department: Room: - Gender: Male Java Systems Analyst: : 1940 Requested By: Eleazar Snider Order Number: [id number] Reading MD: Eleazar Snider Measurements Intervals [place] Rate: 60 P: -55 LA: 164 QRS: 5 QRSD: 92 T: 91 QT: 383 QTc: 383 Interpretive Statements ECTOPIC ATRIAL RHYTHM NONSPECIFIC T-WAVE ABNORMALITY Compared to ECG 06/05/2024 02:49:22 Ectopic atrial rhythm now present Atrial fibrillation no longer present Ventricular premature complex(es) no longer present Aberrant conduction of supraventricular beat(s) no longer present T-wave abnormality still present /store/S0/[id number]/ecg/[id number].pdf
--- NOTE | 2024-06-28 12:30 | XR_ITS ---
Examination: AP chest single view Technique one AP portable upright chest single view Exam date and time: June 28, 2024 1354 hours INDICATIONS: Shortness of breath today COMPARISON: June 05, 2024 FINDINGS: Mild prominence of ventricle Ectatic thoracic aorta Atelectasis versus mild pneumonia left base Right lung clear IMPRESSION: Atelectasis versus mild pneumonia left base
[2024-06-28 12:54] VITALS: BP 119/69; PULSE 94; RESP 19; TEMP 36.8; O2SAT 95
[2024-06-28 12:59] LABS: Lactate (Lactic Acid) 1.9 mMol/L (0.4-2.0)
[2024-06-28 13:00] LABS: Basophils % (Auto) 1 % (0-2.5); Eosinophils # (Auto) 0.1 Thou/mm3 (0.0-0.5); Eosinophils % (Auto) 1 % (0-10); Hematocrit 34.1 % (41.0-53.0); Hemoglobin 10.4 g/dL (13.5-16.0); Immature Granulocytes % (Auto) 0 % (0-0); Immature Granulocytes Auto 0.02 Thou/mm3 (0.00-0.00); Lymphocytes # (Auto) 1.7 Thou/mm3 (1.0-4.8); Lymphocytes % (Auto) 27 % (10-50); Mean Corpuscular HGB Conc 30.5 g/dl (31.0-37.0); Mean Corpuscular Hemoglobin 25.5 pg (25.0-35.0); Mean Corpuscular Volume 84 fL (80-100); Monocytes # (Auto) 0.4 Thou/mm3 (0.0-0.8); Monocytes % (Auto) 6 % (0-12); Neutrophils # (Auto) 4.1 Thou/mm3 (1.8-7.7); Neutrophils % (Auto) 66 % (37-80); Nucleated Red Blood Cell % 0 /100 WBC (0); Platelet Count 324 Thou/mm3 (140-440); RDW Standard Deviation 51.5 fL (35.1-43.9); Red Blood Count 4.08 Miln/mm3 (4.50-5.90); White Blood Count 6.2 Thou/mm3 (3.8-10.6)
[2024-06-28 13:15] VITALS: PULSE 60; RESP 20; O2SAT 94; BMI 27.3
[2024-06-28 13:20] LABS: INR 1.1 (0.9-1.3); Partial Thromboplastin Time 28.3 Seconds (22.0-36.0)
[2024-06-28 13:25] LABS: B-Type Natriuretic Peptide 42 pg/mL (0-100)
[2024-06-28 13:28] LABS: Alanine Aminotransferase 15 U/L (10-49); Albumin, Serum 4.2 gm/dL (3.4-4.8); Albumin/Globulin Ratio 1.6 (1.2-2.2); Alkaline Phosphatase 85 U/L (46-116); Anion Gap 7 (7-16); Aspartate Amino Transferase 12 U/L (0-34); BUN/Creatinine Ratio 14 Ratio (12-20); Bilirubin,Total 0.5 mg/dL (0.3-1.2); Blood Urea Nitrogen 17 mg/dL (9-23); Calcium 8.9 mg/dL (8.3-10.6); Calcium (Corrected) 8.9 mg/dL (8.5-10.1); Carbon Dioxide 28.6 mMol/L (20.0-31.0); Chloride 106 mMol/L (98-107); Creatinine (Component) 1.2 mg/dL (0.6-1.3); Estimated Creatinine Clearance 43.5 mL/min (>60); Globulin 2.7 gm/dL (2.3-3.5); Glucose 111 mg/dL (74-106); LDH (Lactate Dehydrogenase) 147 U/L (120-246); Lipase 54 U/L (12-53); Magnesium 2.1 mg/dL (1.6-2.6); Osmolality,Calculated 285 (275-295); Phosphorous 4.6 mg/dL (2.4-5.1); Potassium 4.1 mMol/L (3.4-5.1); Procalcitonin 0.08 ng/ml (0.0-0.49); Sodium 142 mMol/L (136-145); Total Protein 6.9 gm/dL (5.7-8.2); Troponin I < 0.020 ng/mL (0.0-0.045); eGFR 59 See Note
[2024-06-28 14:07] VITALS: PULSE 58
[2024-06-28 14:19] VITALS: BP 127/71; PULSE 60; RESP 15; TEMP 36.6; O2SAT 96
--- NOTE | 2024-06-28 14:20 | EDNOTE_ITS ---
<Statement entered by Valerie Burns MD - 07/05/24 12:01> As co-signing physician, I was present and available for consult prn. I concur with the plan and care as documented by the midlevel provider. ED General RME/HPI General Chief complaint: Altered Mental Status Stated complaint: AMS Time Seen by Provider: 06/28/24 12:29 Arrival date/time: 06/28/24 12:29 CC: Altered mental status, hypoxia HPI patient presents the ER via EMS stating that the patient's oxygen saturations were in the mid 80s was placed on 6 L nasal cannula, they report that the patient was somewhat altered at the time by family members. They report stable vital signs once the oxygen was administered throughout the transport with a bradycardic rhythm. Patient appears awake, stating that he has no specific complaints however noted the patient does have dementia. At 1420, patient's case discussed with the family member at bedside who said the patient has dementia and has days that are good and bad the patient just finished 1 hour of cycling while in the bed and then had some sort of an altered sensation and was not his baseline mental status. This family member was not available on scene at the time but did elected to call 911 from outside of the house because she is concerned the patient may have had a new GI bleed secondary to being on blood thinners. Related Data Home Medications ?Medication ?Instructions ?Recorded ?Confirmed cyanocobalamin (vitamin B-12) 500 1,000 mcg PO QDAY 08/30/21 06/05/24 mcg tablet folic acid 1 mg tablet 1 mg PO QDAY 08/30/21 06/05/24 levothyroxine 50 mcg tablet 50 mcg PO QDAY 08/30/21 06/05/24 amlodipine 5 mg tablet 5 mg PO QMORNING 06/05/24 06/05/24 Previous Rx's ?Medication ?Instructions ?Recorded apixaban 5 mg (74 tabs) tablets in 5 mg PO BID #74 tabs 06/10/24 a dose pack (Eliquis DVT-PE Treat 30D Start) atorvastatin 40 mg tablet 40 mg PO HS #30 tabs 06/10/24 clopidogrel 75 mg tablet (Plavix) 75 mg PO QDAY #30 tabs 06/10/24 furosemide 20 mg tablet (Lasix) 20 mg PO QDAY #30 tabs 06/10/24 hydralazine 25 mg tablet 25 mg PO BID #30 tabs 06/10/24 potassium chloride 8 mEq 8 meq PO QDAY 30 days #30 caps 06/10/24 capsule,extended release Allergies Allergy/AdvReac Type Severity Reaction Status Date / Time horseradish Allergy Severe Anaphylaxis Verified 06/09/23 11:16 phytonadione (vitamin K1) AdvReac Severe SEVERE Verified 06/09/23 11:16 BLEEDING warfarin AdvReac Severe SEVERE Verified 06/09/23 11:16 BLEEDING Course Course Course Narrative: Upon reassessment of this patient at 1451, the patient is awake and alert to baseline by family member at bedside, oxygen saturations maintained between 94 and 95% on room air. I have a low index of suspicion of any acute finding patient will be discharged home. Quality Measures VTE prophylaxis Orders Category Date Time Status Bedside COVID-19 Antigen Test NOW Care 06/28/24 13:44 Active Bedside Influenza A&B Antigen Test NOW Care 06/28/24 13:44 Active Wind Turbine Technician STAT Care 06/28/24 12:30 Active Continuous Pulse Oximetry STAT Care 06/28/24 12:30 Completed EKG (ED ONLY) *Do not use* NOW Care 06/28/24 12:30 Active In and Out Catheter [id number] Care 06/28/24 12:30 Completed Insert IV NOW Care 06/28/24 12:30 Active NPO STAT Care 06/28/24 12:30 Active Strict Intake and Output Routine Care 06/28/24 12:30 Ordered EKG (ED Only) Stat Exams 06/28/24 12:30 Draft XR chest 1V portable Stat Exams 06/28/24 12:30 Completed B-Type Natriuretic Peptide Stat Lab 06/28/24 12:47 Completed Blood Culture (Lab) Stat Lab 06/28/24 12:47 Received CBC Stat Lab 06/28/24 12:47 Completed Comprehensive Metabolic Panel Stat Lab 06/28/24 12:47 Completed LDH (Lactate Dehydrogenase) Stat Lab 06/28/24 12:47 Completed Lactate (Lactic Acid) Stat Lab 06/28/24 12:47 Completed Lipase Stat Lab 06/28/24 12:47 Completed Magnesium Stat Lab 06/28/24 12:47 Completed Partial Thromboplastin Time Stat Lab 06/28/24 12:47 Completed Phosphorous Stat Lab 06/28/24 12:47 Completed Procalcitonin Stat Lab 06/28/24 12:47 Completed Prothrombin Time with INR Stat Lab 06/28/24 12:47 Completed Troponin I Stat Lab 06/28/24 12:47 Completed Urinalysis Stat Lab 06/28/24 14:11 Completed Urine Culture Stat Lab 06/28/24 12:30 Received Oxygen Delivery NOW RT 06/28/24 12:30 Active Vital Signs Vital signs: Vital Signs Temperature 98.3 F 06/28/24 12:54 Pulse Rate 94 06/28/24 12:54 Respiratory Rate 19 06/28/24 12:54 Blood Pressure 119/69 06/28/24 12:54 Pulse Oximetry (%) 95 06/28/24 12:54 Oxygen Delivery Method Room Air 06/28/24 12:54 [facility] Patient data External records reviewed:: [facility] previous records and EMS form Clinical information provided by:: patient and EMS Social determinants that could affect healthcare access:: none Patient has the following chronic illnesses:: CVA dementia How is presenting disease/condition affected by chronic disease/condition?: u neffected by Evaluation data The following diagnostics were reviewed and interpreted by me:: lab results, radiology exam(s) and EKG tracing(s) Lab and/or radiology exams considered but not ordered:: EKG performed at 1332 shows ventricular rate of 60 OR interval 164 QRS of 92 QTc of 383 this is sinus rhythm nonspecific ST segment changes. CBC shows an H&H of 10 and 34 respectively this is actually a mild improvement from prior CBC is no leukocytosis no thrombocytopenia Coags within acceptable limits CMP shows no acute electrolyte imbalances renal impairment transaminitis or T. bili elevation. Troponin is negative BNP is negative Chest x-ray as interpreted atelectasis for old mild pneumonia Urine is positive for urinary tract infection however when discussing with family member the states she is he is on low-dose Macrodantin regarding a Gallagher catheter and recurrent UTIs. There is a plan to get the Gallagher catheter removed on 15 July. Interpretation Summary: Patient's chest x-ray although showing atelectasis is more than likely atelectasis the patient has no fever or productive cough leukocytosis or shortness of breath. Patient is much more awake alert than when initial assessment, this time comfortable discharging the patient home as there is no acute finding requires emergent or meet intervention. Medications Medications considered but not ordered:: None Medication administrations:: None Consultations Consultation(s) initiated? (list below): No Diagnosis Differential Diagnosis ED Complaint MDM: UTI anemia GI bleed sepsis Most likely diagnosis given after review of the tests above:: Altered mental status Admission Indicated Admission indicated?: not indicated Explain why admission is indicated or not indicated:: Stable for outpatient follow-up Admission Request Was there a request for admission?: No Disposition Plan Disposition Plan: Discharge Discharge Attestation Discharge Attestation: The patient and all family members were given an opportunity to ask questions and understood the discharge instructions. Discharge instructions specifically effects, indications for sooner follow up or return to the emergency department, and the expected course of current diagnosis. Patient condition: Stable Medical Decision Making Differential Diagnosis Differential Diagnosis: UTI anemia GI bleed sepsis Lab Data 06/28/24 12:47 06/28/24 12:47 Labs: Lab Results 06/28/24 06/28/24 Range/Units 12:47 14:11 WBC 6.2 (3.8-10.6) Thou/mm3 RBC 4.08 L (4.50-5.90) Miln/mm3 Hgb 10.4 L (13.5-16.0) g/dL Hct 34.1 L (41.0-53.0) % MCV 84 (80-100) fL MCH 25.5 (25.0-35.0) pg MCHC 30.5 L (31.0-37.0) g/dl RDW Std Deviation 51.5 H (35.1-43.9) fL Plt Count 324 (140-440) Thou/mm3 Neut % (Auto) 66 (37-80) % Lymph % (Auto) 27 (10-50) % [place] % (Auto) 6 (0-12) % Eos % (Auto) 1 (0-10) % Baso % (Auto) 1 (0-2.5) % Neut # (Auto) 4.1 (1.8-7.7) Thou/mm3 Lymph # (Auto) 1.7 (1.0-4.8) Thou/mm3 [place] # (Auto) 0.4 (0.0-0.8) Thou/mm3 Eos # (Auto) 0.1 (0.0-0.5) Thou/mm3 Baso # (Auto) 0.0 (0.0-0.2) Thou/mm3 Immature Gran # (Auto) 0.02 H (0.00-0.00) Thou/mm3 Absolute Nucleated RBC 0.00 (0.00-0.00) Thou/mm3 Immature Gran % 0 (0-0) % Nucleated RBC % 0 (0) /100 WBC PT 12.0 (9.0-12.2) Seconds INR 1.1 (0.9-1.3) APTT 28.3 D (22.0-36.0) Seconds Sodium 142 (136-145) mMol/L Potassium 4.1 (3.4-5.1) mMol/L Chloride 106 (98-107) mMol/L Carbon Dioxide 28.6 (20.0-31.0) mMol/L Anion Gap 7 (7-16) BUN 17 (9-23) mg/dL Creatinine 1.2 (0.6-1.3) mg/dL Estim Creat Clear Calc 43.5 L (>60) mL/min eGFR 59 L (60 - ) See Note BUN/Creatinine Ratio 14 (12-20) Ratio Glucose 111 H (74-106) mg/dL Calculated Osmolality 285 (275-295) Lactic Acid 1.9 (0.4-2.0) mMol/L Calcium 8.9 (8.3-10.6) mg/dL Corrected Calcium 8.9 (8.5-10.1) mg/dL Phosphorus 4.6 (2.4-5.1) mg/dL Magnesium 2.1 (1.6-2.6) mg/dL Total Bilirubin 0.5 (0.3-1.2) mg/dL AST 12 (0-34) U/L ALT 15 (10-49) U/L Alkaline Phosphatase 85 (46-116) U/L Lactate Dehydrogenase 147 (120-246) U/L Troponin I < 0.020 (0.0-0.045) ng/mL B-Natriuretic Peptide 42 (0-100) pg/mL Total Protein 6.9 (5.7-8.2) gm/dL Albumin 4.2 (3.4-4.8) gm/dL Globulin 2.7 (2.3-3.5) gm/dL Albumin/Globulin Ratio 1.6 (1.2-2.2) Lipase 54 H (12-53) U/L Procalcitonin 0.08 (0.0-0.49) ng/ml Ur Collection Type Clean Catch Urine Color Yellow (Lt Yel-Yel) Urine Clarity Hazy (Clear/Hazy) Urine pH 6.0 (5.0-7.0) Ur Specific [place] 1.018 (1.001-1.035) Urine Protein 1+ A (Neg - Trace) Urine Glucose (UA) Negative (Negative) Urine Ketones Negative (Negative) Urine Blood Negative (Negative) Urine Nitrite Positive (Negative) Urine Bilirubin Negative (Negative) Urine Urobilinogen (Auto) Negative (0.0-1.0) mg/dL Ur Leukocyte Esterase Positive (Negative) Urine RBC 11 H (0-3) /hpf Urine WBC 133 H (0-5) /hpf Ur Squamous Epith Cells 1 (0-5) /hpf Urine Bacteria 1+ A (None) Hyaline Casts 1 (0-1) /hpf Discharge Plan Plan Patient Disposition: HOME (Self Care) Patient condition on transfer: Stable Prescriptions/Referrals Prescriptions/Med Rec: No Action cyanocobalamin (vitamin B-12) 500 mcg Tablet 1,000 mcg PO QDAY levothyroxine 50 mcg Tablet 50 mcg PO QDAY folic acid 1 mg Tablet 1 mg PO QDAY amlodipine 5 mg tablet 5 mg PO QMORNING Eliquis DVT-PE Treat 30D Start 5 mg (74 tabs) tablets,dose pack 5 mg PO BID Qty: 74 0RF clopidogrel [Plavix] 75 mg tablet 75 mg PO QDAY Qty: 30 0RF hydralazine 25 mg tablet 25 mg PO BID Qty: 30 0RF atorvastatin 40 mg tablet 40 mg PO HS Qty: 30 0RF furosemide [Lasix] 20 mg tablet 20 mg PO QDAY Qty: 30 0RF potassium chloride 8 mEq capsule, extended release 8 meq PO QDAY 30 Days Qty: 30 0RF Referrals: Mary Kate Valladares MD [Primary Care Provider] - In 1 week Problem List Clinical Impression: Confusion, Hypoxia Patient/Caregiver Discharge Instructions Education Materials: ED Confusion Additional Instructions: Follow-up with your primary care provider if there is no return of the symptoms return immediately to the emergency room for reevaluation. Print Language: Surinamese Stand Alone Forms: Faby Award Info., Patient Portal Info Letter, Work/School Release PA/BATCH STILL OPERATOR Supervising Physician PA/BATCH STILL OPERATOR Supervising Physician: Eleazar Parr ENP
[2024-06-28 14:31] LABS: Collection Type, Urine Clean Catch
[2024-06-28 15:00] LABS: Bacteria,Urine 1+; Bilirubin,Urine Negative (Negative); Blood,Urine Negative (Negative); Color,Urine Yellow (Lt Yel-Yel); Glucose, Urine Negative (Negative); Hyaline Casts,Urine 1 /hpf (0-1); Ketones,Urine Negative (Negative); Leukocyte Esterase,Urine Positive (Negative); Nitrite,Urine Positive (Negative); Protein,Urine 1+ (Neg - Trace); RBC,Urine 11 /hpf (0-3); Specific Gravity,Urine 1.018 (1.001-1.035); Squamous Epithelial Cell,Urine 1 /hpf (0-5); Urobilinogen,Urine Negative mg/dL (0.0-1.0); WBC,Urine 133 /hpf (0-5)
[2024-06-28 15:06] LABS: Clarity,Urine Hazy (Clear/Hazy)
--- NOTE | 2024-06-28 15:55 | PC.NURSE ---
Attempted to swab patient for Covid. Covid control line did not appear. does not want test repeated. Attempted assessment however asked for me to leave the room so she could speak with the propellant charge loader. No assessments completed by this typewriter tester. states patient is to d/c home.
== END 2024-06-28 15:54 | disposition home or self-care (01) ==
PROVIDERS: Registered Nurse General Practice; Emergency Provider Emergency Medicine; PCP Family Medicine
DX: R41.0 Disorientation, unspecified (principal); R09.02 Hypoxemia
CPT/HCPCS: 36415; 71045; 80053; 81001; 83605; 83615; 83690; 83735; 83880; 84100; 84145; 84484; 85025; 85610; 85730; 87040; 87077; 87086; 87186; 87811; 93005; 99283

== ENCOUNTER → 2024-06-28 | Outpatient (CLI) | payer MEDICARE, BC, OTHER, SELFPAY ==
[2024-06-28 16:29] LABS: Basophils % (Auto) 1 % (0-2.5); Eosinophils # (Auto) 0.1 Thou/mm3 (0.0-0.5); Eosinophils % (Auto) 2 % (0-10); Hemoglobin 9.5 g/dL (13.5-16.0); Immature Granulocytes % (Auto) 0 % (0-0); Immature Granulocytes Auto 0.02 Thou/mm3 (0.00-0.00); Lymphocytes % (Auto) 36 % (10-50); Mean Corpuscular HGB Conc 30.6 g/dl (31.0-37.0); Mean Corpuscular Hemoglobin 25.5 pg (25.0-35.0); Mean Corpuscular Volume 83 fL (80-100); Monocytes # (Auto) 0.4 Thou/mm3 (0.0-0.8); Monocytes % (Auto) 7 % (0-12); Neutrophils # (Auto) 3.1 Thou/mm3 (1.8-7.7); Neutrophils % (Auto) 55 % (37-80); Nucleated Red Blood Cell % 0 /100 WBC (0); Platelet Count 297 Thou/mm3 (140-440); RDW Standard Deviation 51.3 fL (35.1-43.9); Red Blood Count 3.73 Miln/mm3 (4.50-5.90); White Blood Count 5.6 Thou/mm3 (3.8-10.6)
[2024-06-28 16:53] LABS: eGFR > 60 See Note
== END | disposition home or self-care (01) ==
DX: I10 Essential (primary) hypertension (principal); E03.9 Hypothyroidism, unspecified; Z79.890 Hormone replacement therapy; Z86.718 Personal history of other venous thrombosis and embolism
CPT/HCPCS: 36415; 82565; 85025

== ENCOUNTER 2024-07-14 11:21 | Inpatient (IN) | payer OTHER, SELFPAY ==
[2024-07-14] VITALS (11 sets, daily range): BP systolic 127–175; BP diastolic 74–95; PULSE 29–110; RESP 14–97; TEMP 36.3–36.5; O2SAT 93–98; BMI 29.9
--- NOTE | 2024-07-14 11:22 | EDNOTE_ITS ---
Altered Mental Status RME/HPI General Chief Complaint: Altered Mental Status Stated Complaint: AMS Arrival date/time: 07/14/24 11:21 RME / HPI RME / HPI narrative: DR. ARGUETA MAIN ED EVALUATION: 83 year old male presents to the Emergency Department [facility] with complaint of altered mental status, about 25 minutes prior to arrival according to . reported to EMS that she was concerned with the left-sided weakness, mainly left arm, which is new according to . EMS states patient was lethargic at scene. EMS denies any trauma. Patient denies any pain at all, fall, injury, or any other symptoms at this time. Blood glucose 220 at the scene, per EMS. At 1520: I spoke with , states she called an ambulance because patient was more altered than usual but now back to normal. The left-sided weakness is chronic from old stroke. PMHx: X3 strokes, atrial fibrillation, on Eliquis, dementia, hypertension, hyperlipidemia Social Hx: No tobacco, alcohol, or substance use. Related Data Home Medications ?Medication ?Instructions ?Recorded ?Confirmed cyanocobalamin (vitamin B-12) 500 1,000 mcg PO QDAY 08/30/21 06/05/24 mcg tablet folic acid 1 mg tablet 1 mg PO QDAY 08/30/21 06/05/24 levothyroxine 50 mcg tablet 50 mcg PO QDAY 08/30/21 06/05/24 amlodipine 5 mg tablet 5 mg PO QMORNING 06/05/24 06/05/24 Previous Rx's ?Medication ?Instructions ?Recorded apixaban 5 mg (74 tabs) tablets in 5 mg PO BID #74 tabs 06/10/24 a dose pack (Eliquis DVT-PE Treat 30D Start) atorvastatin 40 mg tablet 40 mg PO HS #30 tabs 06/10/24 clopidogrel 75 mg tablet (Plavix) 75 mg PO QDAY #30 tabs 06/10/24 furosemide 20 mg tablet (Lasix) 20 mg PO QDAY #30 tabs 06/10/24 hydralazine 25 mg tablet 25 mg PO BID #30 tabs 06/10/24 Allergies Allergy/AdvReac Type Severity Reaction Status Date / Time horseradish Allergy Severe Anaphylaxis Verified 06/09/23 11:16 phytonadione (vitamin K1) AdvReac Severe SEVERE Verified 06/09/23 11:16 BLEEDING warfarin AdvReac Severe SEVERE Verified 06/09/23 11:16 BLEEDING Review of Systems Review of Systems Systems Reviewed: All systems reviewed, normal except as documented Narrative Review of Systems: GEN: No fever, no chills, no weight loss EYES: No discharge, no visual changes, no pain HEENT: No ear pain, no congestion, no sore throat PULM: No shortness of breath, no cough, no congestion CV: No chest pain, no dyspnea on exertion, no palpitations GI: No nausea, no vomiting, no diarrhea, no pain, no constipation : No frequency, no urgency and no dysuria MUSC/SKEL: No joint pain, no back pain SKIN: No rash PSYCH: No hallucinations, no depression HEME/LYMPH: No easy bleeding or bruising tendencies NEURO: + generalized weakness, + AMS (see HPI), no headache Past Medical History Past Medical History NEUROLOGIC: Positive Neurological Disorders, Cerebrovascular Accident (February 2024) and Dementia CARDIAC: Positive Cardiac Disorders, Atrial Fibrillation, Hypercholesterolemia, Deep Vein Thrombosis and Hypertension; Negative Congestive Heart Failure RESPIRATORY: Negative Chronic Obstructive Pulmonary Disease (COPD) or Asthma GASTROINTESTINAL: Positive Gastrointestinal Disorders, Gall Bladder Disease and Gastrointestinal Bleed GENITOURINARY: Positive Genitourinary Disorders, Neurogenic Bladder (Chronic Gallagher) and Benign Prostatic Hyperplasia; Negative Renal Disease, Kidney Stones, Polycystic Kidney Disease, Inguinal Hernia or Dialysis MUSCULOSKELETAL: Positive Musculoskeletal Disorders and Degenerative Disk Disease ENT: Positive Cataracts (wanda) ENDOCRINE: Positive Endocrine Disorders and Hypothyroidism; Negative Diabetes Mellitus Type 1 or Diabetes Mellitus Type 2 HEMATOLOGIC: Negative Blood Disorders, Anemia, Leukemia, Hemophilia, Thalassemia, Sickle Cell Disease or Clotting Problems OTHER HISTORY: Negative Hospitalization, Autoimmune Disease, Down Syndrome, Developmental Delay, Shingles, Falls, Blood Transfusions, Anesthesia Reactions, Organ Transplant or Cancer Surgical History SURGICAL: Positive Gastric Bypass Surgery; Negative Organ Transplant Social History SMOKING STATUS: Never smoker SUBSTANCE USE: does not use ED Exam Narrative Physical exam: GENERAL APPEARANCE: Well hydrated, well nourished, in no acute distress. VITALS: All vitals were reviewed and the pulse ox is 97% on room air which is normal according to my interpretation. HEENT: Normocephalic, atramatic, EOMI, EACs are patent. There is no bulge or retraction. Throat without erythema or exudate. Moist oromucosa. No jaundice NECK: Supple, no JVD or bruits. CARDIOVASCULAR: Heart irregular consistent with atrial fibrillation. LUNGS/CHEST: Clear to auscultation bilaterally. No rales, rhonchi, or wheezing. Normal inspection. ABDOMEN: Soft, nontender, with normal bowel sounds. No pulsatile masses. No rebound, rigidity, or guarding. No incarcerated hernia. Normal inspection and palpation. EXTREMITIES: No edema, clubbing, or cyanosis. Intact CSM. Normal inspection and palpation. : Indwelling Gallagher in place. SKIN: Warm and dry without rashes. Normal inspection. MUSCULOSKELETAL: No gross deformity. NEURO: Alert and oriented x2. GCS of 14. No facial droop. Moving all 4 extremities, but more stiffer and weaker on the left arm. PSYCHIATRIC: Normal mood and affect. No psychosis. Course Course Course Narrative: 1145: Stroke alert initiated. Orders made at this time are congruent stroke protocol. Quality Measures none Orders Category Date Time Status Bedside Blood Glucose NOW Care 07/14/24 11:46 Completed Spar Finisher NOW Care 07/14/24 11:46 Active Continuous Pulse Oximetry NOW Care 07/14/24 11:46 Completed EKG (ED ONLY) *Do not use* NOW Care 07/14/24 11:28 Completed EKG (ED ONLY) *Do not use* NOW Care 07/14/24 11:46 Completed In and Out Catheter NEEDED Care 07/14/24 11:46 Active Insert IV NOW Care 07/14/24 11:46 Active NIH Stroke Scale now Care 07/14/24 11:46 Completed NPO NOW Care 07/14/24 11:46 Active Neuro Check Q1HR Care 07/14/24 11:46 Active Nurse Swallow Screen x1 Care 07/14/24 11:46 Completed Consult to Neurology / Tele-Neurology Routine Cons 07/14/24 11:[address] angio stroke protocol Stat Exams 07/14/24 11:[address] stroke protocol Stat Exams 07/14/24 11:46 Completed EKG (ED Only) Stat Exams 07/14/24 11:28 Draft EKG (ED Only) Stat Exams 07/14/24 11:46 Ordered B-Type Natriuretic Peptide Stat Lab 07/14/24 12:21 Completed CBC Stat Lab 07/14/24 12:21 Completed Comprehensive Metabolic Panel Stat Lab 07/14/24 12:21 Completed Drug Screen,Urine Stat Lab 07/14/24 11:46 Ordered Magnesium Stat Lab 07/14/24 12:21 Completed Partial Thromboplastin Time Stat Lab 07/14/24 12:21 Completed Prothrombin Time with INR Stat Lab 07/14/24 12:21 Completed Troponin I Stat Lab 07/14/24 12:21 Completed Urinalysis Stat Lab 07/14/24 11:46 Ordered Urine Culture Stat Lab 07/14/24 11:46 Ordered Ondansetron Inj [Zofran Inj] Med 07/14/24 11:46 Active 4 mg IV Q4HR PRN Sodium Chloride 0.9% 1000 ml [Ns] 1,000 ml Med 07/14/24 12:00 Active IV Q10H Oxygen Delivery NOW RT 07/14/24 11:46 Active Vital Signs Vital signs: Vital Signs Temperature 97.5 F 07/14/24 12:23 Pulse Rate 70 07/14/24 12:23 Respiratory Rate 17 07/14/24 12:23 Blood Pressure 127/74 07/14/24 12:23 Pulse Oximetry (%) 97 07/14/24 12:23 Oxygen Delivery Method Room Air 07/14/24 12:23 Altered Mental Status MDM Narrative MDM Narrative:: I, Allison Rivero, am scribing for and in the presence of Dr. Argueta. CBC is unremarkable except for chronic anemia. Hematocrit of 20%. CMP is negative. Troponin negative. BNP negative. Magnesium negative. CT head and CT angio have resulted and read by radiologist on-call. UA and U tox are still pending at this time. 3:30 PM, the patient's is here in the emergency department she states that she was worried because the was very lethargic and sleepy with a pulse will be slow and blood pressure was in the 80s when she called the ambulance. She does confirm that the patient does have a history of stroke with contracted both hands. Twelve-lead EKG at 1133 interpreted by me: Sinus rhythm. Heart rate 68. No ST elevation or depression. No PVC. No STEMI. Regular rate and rhythm. CT brain was reviewed by and interpreted by me as follow. No acute bleed. No acute mass. No acute swelling. No acute dilated ventricle. And no fractures skull. Multiple old CVA lesions. 3:30 PM, I spoke to and discussed with , resident of Dr. Rae, attending hospitalist on-call. She agreed to admit the patient for further evaluation and treatment. Thank you very much Critical care time is approximately 35 minutes excluding any procedure. The high probability of sudden, clinically significant deterioration in the patient?s condition required the highest level of my preparedness to intervene urgently. The services I provided to this patient were to treat and/or prevent clinically significant deterioration. Services included the following: chart data review, reviewing nursing notes and/or old charts, documentation time, architectural sales consultant collaboration regarding findings and treatment options, medication orders and management, direct patient care, vital sign assessments and ordering, interpreting and reviewing diagnostic studies and lab tests. Aggregate critical care time includes only time during which I was engaged in work directly related to the patient?s care, as described above, whether at bedside or elsewhere in the Emergency Department. It did not include time spent performing other reported procedures or the services of residents, students, nurses or physician assistants. Patient data External records reviewed:: [facility] previous records (Reviewed last ED visit dated 06/28/24 discharged with the following: Confusion) and EMS form Clinical information provided by:: patient and EMS Social determinants that could affect healthcare access:: none Patient has the following chronic illnesses:: X3 strokes, on Eliquis, dementia, hypertension, hyperlipidemia How is presenting disease/condition affected by chronic disease/condition?: exacerbated by Evaluation data The following diagnostics were reviewed and interpreted by me:: lab results, radiology exam(s) and EKG tracing(s) Lab and/or radiology exams considered but not ordered:: none Interpretation Summary: See above under MDM narrative. RADIOLOGY Procedure(s): CT angio stroke protocol Accession Number(s): [id number] cc: Sven Li MD; Clinton Argueta MD; Mary Kate Valladares MD~ Examination: CTA carotids with intravenous contrast CTA brain, head with intravenous contrast. 2-D sagittal, coronal reconstructions. 3-D reconstructions. Exam date and time: July 14, 2024 1207 hrs. Indications: Stroke alert, onset left-sided body weakness beginning 10:00 AM today, history 3 prior strokes CTDI: vol (mGy) 19.8 DLP: (mGycm) 174 Technique: Multiple CTA axial brain, head carotid images post intravenous contrast injection 100 cc, Isovue-370. 2-D sagittal, coronal reconstructions. 3-D reconstructions, 3-D post processing including vascular maximum intensity projection images. Low dose protocols were performed. One or more of the following dose reduction techniques were used; automated exposure control, adjustment of the mA and/or KV according to patient size, use of iterative reconstruction technique. Findings: AP dimension ascending thoracic aorta 4 cm No significant common carotid carotid bifurcation or internal carotid artery stenoses Dominant left vertebral artery with no critical stenoses Intracranial vertebral arteries basilar artery posterior cerebral branches demonstrate no large vessel occlusions Juxtasellar supraclinoid portions of the internal carotid arteries are intact 30-40% stenosis M1 segment left middle cerebral artery No left middle cerebral artery occlusions or thrombus Anterior cerebral arteries do fill Impression: Mild aneurysmal dilatation ascending thoracic aorta No significant neck arterial stenoses No cerebral large vessel arterial occlusions or thrombus Dictated By: Sven Li MD Procedure(s): CT stroke protocol Accession Number(s): [id number] cc: Sven Li MD; Clinton Argueta MD; Mary Kate Valladares MD~ Examination: CT brain head without contrast. 2-D sagittal coronal reconstructions Date and time of exam:July 14, 2024 1115 hrs. Indications: Stroke alert, onset left-sided arm weakness altered mental status focal neurologic deficit beginning 10:30 AM, diagnosis 3 prior CVAs, CT brain scan October 28, 2022 old infarcts right posterior parietal, left caudate nucleus, right occipital lobe, right cerebellar hemisphere CTDI: vol (mGy):51.7 DLP: (mGycm):1046 Technique: Multiple CT axial sections of the brain have been obtained, 5 mm slice thickness. Contrast has not been administered. 2-D sagittal, coronal reconstructions have been obtained Low dose protocols were performed. One or more of the following dose reduction techniques were used; automated exposure control, adjustment of the mA and/or KV according to patient size, use of iterative reconstruction technique. Findings: No significant ventricular enlargement. Again noted old infarcts posterior right parietal lobe, right occipital lobe, left caudate nucleus, left occipital lobe, right cerebellar hemisphere Intra-axial or extra-axial hemorrhage density is not seen. No mass effect or midline shift Basal cisterns are not remarkable. Fourth ventricle is midline. Cranial vault intact. Impression: Negative for acute hemorrhage, mass effect or midline shift As clinically warranted, brain MRI follow-up would best assess for acute ischemic change Dictated By: Sven Li MD Medications / Prescriptions Medications or Prescriptions considered but not ordered:: none Medication administrations:: Medication Administration History Sodium Chloride (Ns) 1,000 mls @ 100 mls/hr IV Q10H NIRAV Stop: 08/13/24 11:59 Last Admin: 07/14/24 13:04 Dose: 100 mls/hr Documented By: GM Ondansetron HCl (Ondansetron Inj 2 Mg/Ml Inj 2 Ml) 4 mg IV Q4HR PRN PRN Reason: NAUSEA OR VOMITING Stop: 08/13/24 11:45 see above if any Consultations Consultation(s) initiated? (list below): Yes Consultation #1 (Physician, Specialty, Details): Discussed test HPI, PMHx, lab, radiology results and/or management with hospitalist. Will admit for further evaluation and management. Accepts patient for admission. Time: 15:30 Diagnosis Most likely diagnosis given after review of the tests above:: AMS. Admission Indicated Admission indicated?: not indicated Admission Request Was there a request for admission?: Yes Admission Attestation Admission request attestation: Discussed case with [] from Hospitalist service regarding admission. Discussed patients ED course, exam findings, labs, and radiology results. The Hospitalist [agrees,declines] to accept the patient for admission. Disposition Plan Disposition Plan: Admit Discharge Plan Plan Patient Disposition: Admit Acute Care w/in Hospital Disposition Comment: Stable for admit Prescriptions/Referrals Prescriptions/Med Rec: No Action cyanocobalamin (vitamin B-12) 500 mcg Tablet 1,000 mcg PO QDAY levothyroxine 50 mcg Tablet 50 mcg PO QDAY folic acid 1 mg Tablet 1 mg PO QDAY amlodipine 5 mg tablet 5 mg PO QMORNING Eliquis DVT-PE Treat 30D Start 5 mg (74 tabs) tablets,dose pack 5 mg PO BID Qty: 74 0RF clopidogrel [Plavix] 75 mg tablet 75 mg PO QDAY Qty: 30 0RF hydralazine 25 mg tablet 25 mg PO BID Qty: 30 0RF atorvastatin 40 mg tablet 40 mg PO HS Qty: 30 0RF furosemide [Lasix] 20 mg tablet 20 mg PO QDAY Qty: 30 0RF Referrals: Mary Kate Valladares MD [Primary Care Provider] - In 1 week Problem List Clinical Impression: Altered mental status Patient/Caregiver Discharge Instructions Print Language: Nepali Stand Alone Forms: Faby Award Info., Patient Portal Info Letter
--- NOTE | 2024-07-14 11:28 | EKG_ITS ---
[facility] Test Date: 2024-07-14 Pat Name: ILEANA OROZCO Department: Room: - Gender: Male Campus Coordinator: : 1940 Requested By: Clinton Landin Order Number: [id number] Reading MD: Clinton Landin Measurements Intervals [place] Rate: 68 P: -57 TX: 174 QRS: -5 QRSD: 89 T: 93 QT: 347 QTc: 370 Interpretive Statements ECTOPIC ATRIAL RHYTHM WITH OCCASIONAL SUPRAVENTRICULAR PREMATURE COMPLEXES NONSPECIFIC T-WAVE ABNORMALITY Compared to ECG 06/28/2024 13:32:08 No significant changes /store/S0/[id number]/[id number].pdf
--- NOTE | 2024-07-14 11:46 | XR_ITS ---
Examination: CTA carotids with intravenous contrast CTA brain, head with intravenous contrast. 2-D sagittal, coronal reconstructions. 3-D reconstructions. Exam date and time: July 14, 2024 1207 hrs. Indications: Stroke alert, onset left-sided body weakness beginning 10:00 AM today, history 3 prior strokes CTDI: vol (mGy) 19.8 DLP: (mGycm) 174 Technique: Multiple CTA axial brain, head carotid images post intravenous contrast injection 100 cc, Isovue-370. 2-D sagittal, coronal reconstructions. 3-D reconstructions, 3-D post processing including vascular maximum intensity projection images. Low dose protocols were performed. One or more of the following dose reduction techniques were used; automated exposure control, adjustment of the mA and/or KV according to patient size, use of iterative reconstruction technique. Findings: AP dimension ascending thoracic aorta 4 cm No significant common carotid carotid bifurcation or internal carotid artery stenoses Dominant left vertebral artery with no critical stenoses Intracranial vertebral arteries basilar artery posterior cerebral branches demonstrate no large vessel occlusions Juxtasellar supraclinoid portions of the internal carotid arteries are intact 30-40% stenosis M1 segment left middle cerebral artery No left middle cerebral artery occlusions or thrombus Anterior cerebral arteries do fill Impression: Mild aneurysmal dilatation ascending thoracic aorta No significant neck arterial stenoses No cerebral large vessel arterial occlusions or thrombus
--- NOTE | 2024-07-14 11:46 | XR_ITS ---
Examination: CT brain head without contrast. 2-D sagittal coronal reconstructions Date and time of exam:July 14, 2024 1115 hrs. Indications: Stroke alert, onset left-sided arm weakness altered mental status focal neurologic deficit beginning 10:30 AM, diagnosis 3 prior CVAs, CT brain scan October 28, 2022 old infarcts right posterior parietal, left caudate nucleus, right occipital lobe, right cerebellar hemisphere CTDI: vol (mGy):51.7 DLP: (mGycm):1046 Technique: Multiple CT axial sections of the brain have been obtained, 5 mm slice thickness. Contrast has not been administered. 2-D sagittal, coronal reconstructions have been obtained Low dose protocols were performed. One or more of the following dose reduction techniques were used; automated exposure control, adjustment of the mA and/or KV according to patient size, use of iterative reconstruction technique. Findings: No significant ventricular enlargement. Again noted old infarcts posterior right parietal lobe, right occipital lobe, left caudate nucleus, left occipital lobe, right cerebellar hemisphere Intra-axial or extra-axial hemorrhage density is not seen. No mass effect or midline shift Basal cisterns are not remarkable. Fourth ventricle is midline. Cranial vault intact. Impression: Negative for acute hemorrhage, mass effect or midline shift As clinically warranted, brain MRI follow-up would best assess for acute ischemic change
--- NOTE | 2024-07-14 12:10 | ESCONSULT_ITS ---
Tele Neuro Consultation Consultation Date 07/14/24 Consultation Narrative [facility] TeleNeurology Consult Services Patient Name:???Diony Nelson Date of :???1940 Identification Number:??? Date of Service:???07/14/2024 11:47:14 Diagnosis:?G93.49 - Encephalopathy Multifactorial ?I63.89 - Cerebrovascular accident (CVA) due to other mechanism ([facility]) Impression: ?This is an 83 yo M w a PMHX of stroke (R occipital and parietal lobe), DVT, afib (apixaban), who presents to the ED with the acute onset of AMS and worsening L sided weakness. He was last known to be at baseline at 10.30AM. On arrival to the ED his symptoms remain persistent. ?Physical exam with LUE contracture, LLE weakness, encephalopathy ?Labs pending ?Imaging with CTH pending read ?With is prior R hemispheric strokes and current encephalopathy, I suspect he is having recrudescence of his prior stroke symptoms. Can happen from a toxic/metabolic/infectious/hemodynamic cause. ?Will rule out stroke extension. ?-CTA head and neck-->even if LVO were to be found, his mRS and functional status would likel preclude him from mechanical intervention. ?-Apixaban precludes him from TNK ?Otherwise, would start with tests for reversible causes: ? ?-UA, Utox, thiamine, ammonia, RPR, TSH, B12, ABG, alcohol, ESR, CRP, troponins, A1C, CBC, CMP, LFTs, CPK, lactic acid, blood cultures if febrile. ?-CXR ? ? ?If the above is unrevealing and the symptoms persist/recur, would consider the below: ? ?-MRI brain with and w/o con ?-rEEG ? Our recommendations are outlined below. Recommendations: ? Stroke/Telemetry Floor ? Neuro Checks ? Bedside Swallow Eval ? DVT Prophylaxis ? IV Fluids, Normal Saline ? Head of Bed 30 Degrees ? Euglycemia and Avoid Hyperthermia (PRN Acetaminophen) Advanced Imaging:Advanced Imaging Deferred because: pending completion Metrics: Last Known Well: 07/14/2024 10:30:00 Dispatch Time: 07/14/2024 11:47:14 Arrival Time: 07/14/2024 11:21:00 Initial Response Time: 07/14/2024 11:55:39Symptoms: AMS, L sided weakness. Initial patient interaction: 07/14/2024 11:58:00 NIHSS Assessment Completed: 07/14/2024 12:01:47Patient is not a candidate for Thrombolytic. Thrombolytic Medical Decision: 07/14/2024 12:02:51Patient was not deemed candidate for Thrombolytic because of following reasons: Use of NOAC in last 48 hrs. . I personally Reviewed the CT Head and it Showed Primary Provider Notified of Diagnostic Impression and Management Plan on: 07/14/2024 12:10:42 History of Present Illness:Patient is a 83 year old Male. Patient was brought by EMS for symptoms of AMS, L sided weakness. This is an 83 yo M w a PMHX of stroke (R occipital and parietal lobe), DVT, afib (apixaban), who presents to the ED with the acute onset of AMS and worsening L sided weakness. He was last known to be at baseline at 10.30AM. On arrival to the ED his symptoms remain persistent. He was taken for CTH and further evaluation. Decision on whether or not to give pharmacological thrombolysis was made based on indications, contraindications, and patient's disability status and preference. ? Medications: Anticoagulant use:??Unknown Antiplatelet use:?Unknown Reviewed EMR for current medications Allergies:? NKDA Social History: Smoking: No Alcohol Use: No Drug Use: No Family History: There is no family history of premature cerebrovascular disease pertinent to this consultation ROS : 14 Points Review of Systems was performed and was negative except mentioned in HPI. Past Surgical History: There Is No Surgical History Contributory To Today?s Visit ? Examination: BP(100/100),?Pulse(100), 1A: Level of Consciousness - Alert; keenly responsive?+ 0 1B: Ask Month and Age - Could Not Answer Either Question Correctly?+ 2 1C: Blink Eyes & Squeeze Hands - Performs 0 Tasks?+ 2 2: Test Horizontal Extraocular Movements - Normal?+ 0 3: Test Visual Cuello - No Visual Loss?+ 0 4: Test Facial Palsy (Use Grimace if Obtunded) - Normal symmetry?+ 0 5A: Test Left Arm Motor Drift - Some Effort Against Durham?+ 2 5B: Test Right Arm Motor Drift - No Drift for 10 Seconds?+ 0 6A: Test Left Leg Motor Drift - Some Effort Against Durham?+ 2 6B: Test Right Leg Motor Drift - No Drift for 5 Seconds?+ 0 7: Test Limb Ataxia (FNF/Heel-Olivares) - No Ataxia?+ 0 8: Test Sensation - Mild-Moderate Loss: Less Sharp/More Dull?+ 1 9: Test Language/Aphasia - Normal; No aphasia?+ 0 10: Test Dysarthria - Mild-Moderate Dysarthria: Slurring but can be understood?+ 1 11: Test Extinction/Inattention - No abnormality?+ 0 NIHSS Score:?10 Pre-Morbid Modified Kesha Scale:4 Points = Moderately severe disability; unable to walk and attend to bodily needs without assistance Spoke with :?attending This consult was conducted in real time using interactive audio and video technology. Patient was informed of the technology being used for this visit and agreed to proceed. Patient located in hospital and provider located at home/office setting. Patient is being evaluated for possible acute neurologic impairment and high probability of imminent or life-threatening deterioration. I spent total of 35 minutes providing care to this patient, including time for face to face visit via telemedicine, review of medical records, imaging studies and discussion of findings with providers, the patient and/or family. Dr Abhishek Calderón [facility] For Inpatient follow-up with [facility] physician please call [facility] at . As we are not an outpatient service for any post hospital discharge needs please contact the hospital for assistance. If you have any questions for the [facility] physicians or need to reconsult for clinical or diagnostic changes please contact us via [facility] at . ?
[2024-07-14 12:31] LABS: Basophils % (Auto) 0 % (0-2.5); Eosinophils % (Auto) 1 % (0-10); Hematocrit 27.8 % (41.0-53.0); Immature Granulocytes % (Auto) 0 % (0-0); Immature Granulocytes Auto 0.01 Thou/mm3 (0.00-0.00); Lymphocytes # (Auto) 0.8 Thou/mm3 (1.0-4.8); Lymphocytes % (Auto) 17 % (10-50); Mean Corpuscular HGB Conc 30.9 g/dl (31.0-37.0); Mean Corpuscular Hemoglobin 25.3 pg (25.0-35.0); Mean Corpuscular Volume 82 fL (80-100); Monocytes # (Auto) 0.3 Thou/mm3 (0.0-0.8); Monocytes % (Auto) 6 % (0-12); Neutrophils # (Auto) 3.7 Thou/mm3 (1.8-7.7); Neutrophils % (Auto) 76 % (37-80); Nucleated Red Blood Cell % 0 /100 WBC (0); Platelet Count 199 Thou/mm3 (140-440); RDW Standard Deviation 47.8 fL (35.1-43.9); White Blood Count 4.9 Thou/mm3 (3.8-10.6)
[2024-07-14 12:32] LABS: Hemoglobin 8.6 g/dL (13.5-16.0)
--- NOTE | 2024-07-14 12:34 | PC.NURSE ---
Addendum entered by Tejal Slade RN 07/14/24 13:17: @1240- DR. ARGUETA MADE AWARE OF PT'S FLUID RESTRICTION AND CLARIFIED ORDER IF OK TO ADMINISTER NORMAL SALINE FLUID MAINTENANCE AT 100ML/HR; PER DR. ARGUETA, OK TO START NS FLUID MAINTENANCE AT THIS TIME AT 100ML/HR DUE TO CONTRAST FROM CT. IT IS A PART OF STROKE PROTOCOL. START NS FLUID MAINTENANCE AT THIS TIME. Original Note: AT BEDSIDE; PER , HE IS ON FLUID RESTRICTION ABOUT 1500-1800ML EVERYDAY.
--- NOTE | 2024-07-14 12:46 | PC.NURSE ---
PT HAD BM. PT GIVEN PERINEAL CARE WITH WARM BATH CLOTHS. PT GIVEN NEW GOWN AND NEW WARM BLANKETS. LINEN CHANGED. RN OFFERED TO PLACE ALLEVYN FOAM DRESSING ON PT'S SACRUM FOR PROTECTION; REFUSING AT THIS TIME. NO WOUNDS NOTED TO SACRUM.
[2024-07-14 12:52] LABS: Alanine Aminotransferase 12 U/L (10-49); Albumin, Serum 3.3 gm/dL (3.4-4.8); Albumin/Globulin Ratio 1.4 (1.2-2.2); Alkaline Phosphatase 63 U/L (46-116); Anion Gap 6 (7-16); Aspartate Amino Transferase < 10 U/L (0-34); BUN/Creatinine Ratio 15 Ratio (12-20); Bilirubin,Total 0.3 mg/dL (0.3-1.2); Blood Urea Nitrogen 18 mg/dL (9-23); Calcium 8.3 mg/dL (8.3-10.6); Calcium (Corrected) 8.9 mg/dL (8.5-10.1); Carbon Dioxide 27.6 mMol/L (20.0-31.0); Chloride 107 mMol/L (98-107); Creatinine (Component) 1.2 mg/dL (0.6-1.3); Globulin 2.4 gm/dL (2.3-3.5); Glucose 126 mg/dL (74-106); Magnesium 1.9 mg/dL (1.6-2.6); Osmolality,Calculated 285 (275-295); Potassium 3.6 mMol/L (3.4-5.1); Sodium 141 mMol/L (136-145); Total Protein 5.7 gm/dL (5.7-8.2); Troponin I < 0.020 ng/mL (0.0-0.045); eGFR 59 See Note
[2024-07-14 13:00] LABS: INR 1.2 (0.9-1.3); Prothrombin Time 12.5 Seconds (9.0-12.2)
[2024-07-14] MEDS: SODIUM CHLORIDE 0.9% 1000 ML 1,000 ML 100 ML IV (13:04)
[2024-07-14 13:23] LABS: B-Type Natriuretic Peptide 93 pg/mL (0-100)
--- NOTE | 2024-07-14 17:30 | ESHP_ITS ---
<Statement entered by Muriel Rae MD - 07/21/24 16:25> I reviewed above note and agree with findings and plans. I have also personally examined the patient with medicine team and went over assessment and plan with medical team including fashion styling intern and resident physician. Documentation for date of: 07/14/24 HPI History of Present Illness Chief complaint: altered mental status and L UE weakness History of present illness: 83-year-old male with past medical history of atrial fibrillation with long- term, essential hypertension, multiple CVAs (most recent 1 in February of this year he was seen at [facility]), multiple DVTs s/p IVC filter, ascending aortic aneurysm, chronic diastolic heart failure (EF 55 to 60%), dementia, hypothyroidism, and BPH who was admitted to the hospital on 07/14/2024 after coming to the ED with complaints of altered mental status and worsening left lower extremity weakness. Due to patient's history of dementia most of the history was taken from chart review. Patient's of his bedside, but did not provide into that information about the events leading to patient coming to the ER. As per patient's she stated that he was recently taken off his amlodipine by his primary care physician, but that last night his blood pressure was high and she gave him a quarter of the amlodipine pill around 10 PM last night. This morning patient was at baseline and he had eating breakfast, but after breakfast patient' states she went to the other room for short period of time before she went back to check on the patient and she noticed that he was a little bit more lethargic and less alert therefore she decided to take the patient's blood pressure. She stated that the blood pressure at this time was slow in the 80s over 40s and she repeated the blood pressure but the blood pressure machine only read low. She also mentioned that the heart rate at this time was in the 70s, but that when she called EMS they stated that the heart rate was in the high 20s/30s. Patient's stated that the patient was back to his baseline when we were assessing him and that she was not sure if she wanted patient to be admitted, but stated that she would admitted given that the patient's primary care physician recommended the patient stay overnight. Of note, patient's CODE STATUS was made full code as patient's did not make that decision at this time. It was explained to her what the different CODE STATUS was under, but she has still not made a decision. Patient will remain full code for now. ED course: Initially patient came in normotensive and afebrile. Initial labs were relevant for anemia (Hgb 8.6), but otherwise unremarkable. Initial imaging included EKG which showed A-fib with a heart rate of 68. Additional imaging included head CT which was unremarkable with only findings of old infarcts on the posterior right parietal lobe, right occipital lobe, left caudate nucleus, left occipital lobe, and right cerebellar hemisphere. Other additional imaging also included head/neck CTA which showed Ascending thoracic aorta 4 cm, 30 to 40% stenosis of M1 segment of left middle cerebral artery, but no significant neck arterial stenosis or cerebral large vessel occlusion or thrombus. Stroke alert was initiated in the ER due to patient's symptoms and teleneurology was consulted. Review of Systems Review of Systems ROS Unobtainable: unobtainable due to medical condition Past Medical History Past Medical History NEUROLOGIC: Positive Neurological Disorders, Cerebrovascular Accident (February 2024) and Dementia CARDIAC: Positive Cardiac Disorders, Atrial Fibrillation, Hypercholesterolemia, Deep Vein Thrombosis and Hypertension; Negative Congestive Heart Failure RESPIRATORY: Negative Chronic Obstructive Pulmonary Disease (COPD) or Asthma GASTROINTESTINAL: Positive Gastrointestinal Disorders, Gall Bladder Disease and Gastrointestinal Bleed GENITOURINARY: Positive Genitourinary Disorders, Neurogenic Bladder (Chronic Gallagher) and Benign Prostatic Hyperplasia; Negative Renal Disease, Kidney Stones, Polycystic Kidney Disease, Inguinal Hernia or Dialysis MUSCULOSKELETAL: Positive Musculoskeletal Disorders and Degenerative Disk Disease ENT: Positive Cataracts (burke) ENDOCRINE: Positive Endocrine Disorders and Hypothyroidism; Negative Diabetes Mellitus Type 1 or Diabetes Mellitus Type 2 HEMATOLOGIC: Negative Blood Disorders, Anemia, Leukemia, Hemophilia, Thalassemia, Sickle Cell Disease or Clotting Problems OTHER HISTORY: Negative Hospitalization, Autoimmune Disease, Down Syndrome, Developmental Delay, Shingles, Falls, Blood Transfusions, Anesthesia Reactions, Organ Transplant or Cancer Surgical History SURGICAL: Positive Gastric Bypass Surgery; Negative Organ Transplant Social History SMOKING STATUS: Never smoker SUBSTANCE USE: does not use Exam Vital Signs Temp Pulse Resp BP Pulse Ox O2 Del Method 97.3 F 78 20 150/95 H 97 Room Air 07/14/24 16:20 07/14/24 16:26 07/14/24 16:26 07/14/24 16:20 07/14/24 16:20 07/14/24 16:20 Narrative Exam Physical exam limited due to patient's dementia General: Patient has dementia, in no acute distress Eyes: PERRL, EOMI. Anicteric, vision grossly intact Ears: No visible ear discharge, Hearing mildly impaired Nose: No nasal discharge. Mouth/Throat: Dry mucous membranes, no redness, no lesions. Neck: Neck supple, non-tender, no cervical lymphadenopathy. Lungs: Clear BURKE to auscultation and percussion, No accessory muscle use. Cardio: Normal S1/S2, irregularly irregular rhythm, no murmurs, no JVD Abdomen: Soft, but distended, non-tender, no palpable masses, peristalsis present, no guarding or rebound. Extremities: Symmetrical, no significant deformities, 1+ pitting edema, non- tender, peripheral pulses presents. Skin: No rashes, no lesions, warm to touch. Neuro: Patient able to follow commands and move all extremities. L UE weaker from previous CVA. Results: Labs 07/14/24 12:21 07/14/24 12:21 Labs: Short CBC 07/14/24 Range/Units 12:21 WBC 4.9 (3.8-10.6) Thou/mm3 Hgb 8.6 L (13.5-16.0) g/dL Hct 27.8 L (41.0-53.0) % Plt Count 199 D (140-440) Thou/mm3 BMP 07/14/24 12:21 Sodium 141 Potassium 3.6 Chloride 107 Carbon Dioxide 27.6 BUN 18 Creatinine 1.2 Glucose 126 H Calcium 8.3 Cardiac Enzymes 07/14/24 Range/Units 12:21 Troponin I < 0.020 (0.0-0.045) ng/mL Liver Function 07/14/24 Range/Units 12:21 Total Bilirubin 0.3 (0.3-1.2) mg/dL AST < 10 (0-34) U/L ALT 12 (10-49) U/L Alkaline Phosphatase 63 (46-116) U/L Albumin 3.3 L (3.4-4.8) gm/dL Quality Measures Quality Measures none Advance care planning discussed with:: patient and spouse Medications Home Medications and Allergies Home Medications ?Medication ?Instructions ?Recorded ?Confirmed ?Type cyanocobalamin (vitamin B-12) 500 1,000 mcg PO QDAY 08/30/21 07/14/24 History mcg tablet folic acid 1 mg tablet 1 mg PO QDAY 08/30/21 07/14/24 History levothyroxine 50 mcg tablet 50 mcg PO QDAY 08/30/21 07/14/24 History amlodipine 5 mg tablet 5 mg PO QMORNING 06/05/24 07/14/24 History donepezil 5 mg tablet 5 mg 1XD 07/14/24 07/14/24 History nitrofurantoin macrocrystal 50 mg 50 mg 1XD 07/14/24 07/14/24 History capsule potassium chloride 8 mEq 8 meq 1XD 07/14/24 07/14/24 History capsule,extended release tamsulosin 0.4 mg capsule 0.4 mg PO 1XD 07/14/24 07/14/24 History Allergies Allergy/AdvReac Type Severity Reaction Status Date / Time horseradish Allergy Severe Anaphylaxis Verified 06/09/23 11:16 phytonadione (vitamin K1) AdvReac Severe SEVERE Verified 06/09/23 11:16 BLEEDING warfarin AdvReac Severe SEVERE Verified 06/09/23 11:16 BLEEDING Visit Medications Acetaminophen (Acetaminophen 325 Mg Tablet) 650 mg PO Q6H PRN PRN Reason: pain and Fever >100.4 Stop: 08/13/24 16:14 Hydrocodone Bitart/Acetaminophen (Hydrocodone/Apap 5/325 Tablet) 1 tab PO Q4HR PRN PRN Reason: PAIN SCALE 4-10(Mod-Sev Stop: 07/19/24 16:14 Ondansetron HCl (Ondansetron Inj 2 Mg/Ml Inj 2 Ml) 4 mg IV Q6H PRN; Protocol PRN Reason: NAUSEA OR VOMITING Stop: 08/13/24 16:14 Pantoprazole Sodium (Pantoprazole Inj 40 Mg Vial) 40 mg IVP QDAY [facility] Stop: 08/14/24 08:59 Discontinued Medications Sodium Chloride (Ns) 1,000 mls @ 100 mls/hr IV Q10H [facility] Stop: 08/13/24 11:59 Last Admin: 07/14/24 13:04 Dose: 100 mls/hr Ondansetron HCl (Ondansetron Inj 2 Mg/Ml Inj 2 Ml) 4 mg IV Q4HR PRN PRN Reason: NAUSEA OR VOMITING Stop: 08/13/24 11:45 Assessment & Plan Plan 83-year-old male with past medical history of atrial fibrillation long-term, essential hypertension, multiple CVAs (most recent 1 in February of 2024, he was seen at [facility]), multiple DVTs s/p IVC filter, ascending aortic aneurysm, chronic diastolic heart failure (EF 55 to 60%), dementia, hypothyroidism, and BPH who was admitted to the hospital on 07/14/2024 due to acute encephalopathy, worsening left-sided weakness, and hypotension at home. #Acute encephalopathy #Left upper extremity worsening weakness #Hx of CVAs with left-sided weakness #Hx of dementia ?DDx acute encephalopathy likely metabolic versus infectious versus due to TIA versus stroke. ?NIHSS score 10 ?CTA head and neck showed ascending thoracic aorta 4 cm, 30 to 40% stenosis of M1 segment of left middle cerebral artery, but no significant neck arterial stenosis or cerebral large vessel occlusion or thrombus ?CT head findings of old infarcts on the posterior right parietal lobe, right occipital lobe, left caudate nucleus, left occipital lobe, and right cerebellar hemisphere. ?Teleneuro consulted and advised workup for reversible causes and to allow permissive hypertension up to 180 and if MRI negative and patient to be normotensive. -During assessment patient was back at baseline as per patient's . Plan: ?Patient was out of window for IV thrombolytics. -MRI ordered ?Neurochecks every 4 hours ?Allow permissive hypertension upto 180 SBP as per tleleneurology ?Head of bed elevation to 30 degrees ?Aspiration precautions -Consult in-hospital neurology, appreciate recommendations -Referred to speech and physical therapy #Hx of atrial fibrillation #Hx of hypertension ?Patient's EKG showed atrial fibrillation ? Patient's blood pressure was 119/69 on arrival ? Currently 150/95. ?Patient is not on any rate control medication at this time ?[id number] score of 7 points indicating 11.2% risk of stroke per year ?HAS-BLED score of 5 points indicating high risk of major bleeding Plan: ? Will allow for permissive hypertension up to 180 SBP for now as per teleneurology - Labetalol IV 5mg for SBP above 180, hold if HR less than 65. #Chronic diastolic heart failure (EF 55 to 60% 02/2025) ?Echo on 03/12/2024 had the following findings: Normal LV size and function. Stage I diastolic dysfunction. Estimated EF 55-60% Normal RV size and function The acending aorta is mildly dilated. 3.7cm. Trace MR, TR. Plan: ? Will continue patient's home dose Lasix of 20 mg p.o. daily ?Strict RICHARD's ? Daily weights ? Fluid restrictions ? Will continue to monitor #Hx of multiple DVTs s/p IVC filter #Hx of ascending aortic aneurysm ?Heparin sc 5,000 x1 today -Will reassess DVT prophylaxis tomorrow after MRI and in hospital neurologist reccomendations #Hx of hypothyroidism ?Will restart patient's levothyroxine 50 mcg daily once passes nurse swallow screen or speech therapist evaluates. #Hx of BPH #Chronic indwelling Gallagher catheter since February 2024 ?Will restart patient's Flomax once med reconciliation is done Disposition: Patient admitted to telemetry for acute encephalopathy, worsening L UE weakness and hypotension. Diet: NPO for now GI prophylaxis: protonix DVT prophylaxis: Heparin sc x1 Code: Full code Case disclosed with Attending Dr. Butch Canela PGY1
[2024-07-14 17:41] LABS: Sed Rate (ESR) 12 mm/hr (0-20)
[2024-07-14 18:00] LABS: Lactate (Lactic Acid) 2.1 mMol/L (0.4-2.0)
[2024-07-14 18:23] LABS: Ammonia < 10 uMol/L (11-32)
[2024-07-14 18:32] LABS: C-Reactive Protein 0.6 mg/dL (0.0-0.9)
[2024-07-14] MEDS: Magnesium Sulfate 1 gm Ivpb 1 GM/100 ML BAG IV (18:44)
[2024-07-14] MEDS: POTASSIUM CHL 10 mEq IVPB 10 MEQ/100 ML BAG 100 MEQ IV ×2 (18:44→20:15)
--- NOTE | 2024-07-14 19:31 | PC.NURSE ---
THIS PT IS ACCEPTED TO [facility] BY DR. HINTON. THIS IS A ER:ER TRANSFER AND NUMBER FOR REPORT IS [phone]. VANIA WAS THE FACILITY REP I SPOKE WITH FOR ACCEPTING INFORMATION.
[2024-07-14 20:27] LABS: Collection Type, Urine Catheter; RBC,Urine 0 /hpf (0-3); Squamous Epithelial Cell,Urine 0 /hpf (0-5)
--- NOTE | 2024-07-14 20:43 | PC.NURSE ---
Pt's Eduarda called and notified of pt's bed assignment, as requested.
[2024-07-14 20:45] LABS: Bilirubin,Urine Negative (Negative); Blood,Urine Negative (Negative); Clarity,Urine Clear (Clear/Hazy); Color,Urine Lt-Yellow (Lt Yel-Yel); Glucose, Urine Negative (Negative); Ketones,Urine Negative (Negative); Leukocyte Esterase,Urine Positive (Negative); Nitrite,Urine Positive (Negative); Protein,Urine Trace (Neg - Trace); Urobilinogen,Urine Negative mg/dL (0.0-1.0); WBC,Urine 14 /hpf (0-5)
[2024-07-14 20:57] LABS: Reflex Lactate? Y
[2024-07-14 20:59] LABS: Amphetamine/Methamp Scrn,U Negative (Negative); Barbiturate Screen,Urine Negative (Negative); Benzodiazepines Screen,Urine Negative (Negative); Benzoylecgonine Screen, Ur Negative (Negative); Fentanyl Screen,Urine Negative (Negative); Opiate Screen,Urine Negative (Negative); THC Screen,Urine Negative (Negative)
[2024-07-14 21:55] LABS: Lactic Acid, 3 HR 1.5 mMol/L (0.4-2.0)
[2024-07-15] VITALS: BP 158/85; PULSE 73; PULSE 84; RESP 24; TEMP 36; O2SAT 96
--- NOTE | 2024-07-15 | XR_ITS ---
Examination: MRI of brain without intravenous contrast. MRI brain with intravenous contrast. Date and time of exam:July 15, 2024 10:30 AM INDICATIONS: Onset left-sided body weakness primarily left arm beginning yesterday, history CVAs, also altered mental status beginning yesterday Technique: Multiple axial and sagittal images of the brain to been obtained. Siemens high-resolution 1.52 Rpisca short bore scanner utilized. Sagittal sections, T1 weighted images, TR 500, TE 14, are performed. Axial sections proton-density and T2-weighted images have been obtained. Inversion recovery axial images, TR 9260, TE 111, TR 2500. Diffusion weighted images, axial sections, TR 4800, TE 128, B value 1000. Axial sections, ADC map, TR 4800, TE 128. Axial and coronal images were also obtained post 18 cc gadolinium administered intravenously. Findings:: Enlargement of the sella turcica is not present. The optic chiasm and infundibular stalk are not remarkable. There is no localized enlargement of the medulla or roger. Fourth ventricle and cerebellar tonsils appear normal in position. No subacute area of hemorrhage density is seen. Fourth ventricle is midline. Mass in the cerebellopontine angle region is not evident. 7th and 8th nerve complexes exhibit symmetry Globes are symmetrical Orbital musculature including medial lateral rectus muscles do not exhibit abnormality Increased white matter signal is evident, prominent, including large old infarcts right cerebellar hemisphere, right occipital lobe, left basal ganglia, posterior right parietal lobe Effacement of the cortical sulcal markings is not identified. Mass effect upon the ventricular system is not identified. Diffusion-weighted images demonstrate no focus of restricted diffusion Contrast images demonstrate no abnormal cerebellar or cerebral enhancement Impression: Negative for acute hemorrhage mass effect or midline shift Prominent atrophy Multiple old infarcts No acute infarct
--- NOTE | 2024-07-15 00:40 | PC.NURSE ---
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 Nursing staff and telesitter reoriented pt multiple times but pt still not cooperative. Per MD, will put in new order.
--- NOTE | 2024-07-15 00:40 | PC.NURSE ---
Called hospitalist, spoke to resident Dr. Dudley, made aware pt has been pull off nurse monitoring and pull on IV access. Nursing staff and telesitter reoriented pt multiple times but pt still not cooperative. Per MD, will put in new order.
[2024-07-15 04:00] VITALS: BP 144/96; PULSE 58; PULSE 78; RESP 15; TEMP 36.2; O2SAT 96
[2024-07-15 08:00] VITALS: BP 149/84; PULSE 70; RESP 18; TEMP 36.2; O2SAT 98
--- NOTE | 2024-07-15 08:23 | PCS.ST ---
Swallow Evaluation completed. See report for details. Recommend Chopped diet/Regluar liquids. ST will follow up.
[2024-07-15 08:35] VITALS: PULSE 75
[2024-07-15 09:15] LABS: Basophils % (Auto) 1 % (0-2.5); Eosinophils # (Auto) 0.1 Thou/mm3 (0.0-0.5); Eosinophils % (Auto) 2 % (0-10); Hematocrit 30.5 % (41.0-53.0); Hemoglobin 9.4 g/dL (13.5-16.0); Immature Granulocytes % (Auto) 0 % (0-0); Immature Granulocytes Auto 0.02 Thou/mm3 (0.00-0.00); Lymphocytes # (Auto) 1.4 Thou/mm3 (1.0-4.8); Lymphocytes % (Auto) 28 % (10-50); Mean Corpuscular HGB Conc 30.8 g/dl (31.0-37.0); Mean Corpuscular Hemoglobin 24.9 pg (25.0-35.0); Mean Corpuscular Volume 81 fL (80-100); Monocytes # (Auto) 0.3 Thou/mm3 (0.0-0.8); Monocytes % (Auto) 6 % (0-12); Neutrophils # (Auto) 3.3 Thou/mm3 (1.8-7.7); Neutrophils % (Auto) 64 % (37-80); Nucleated Red Blood Cell % 0 /100 WBC (0); Platelet Count 236 Thou/mm3 (140-440); RDW Standard Deviation 47.2 fL (35.1-43.9); Red Blood Count 3.78 Miln/mm3 (4.50-5.90); White Blood Count 5.2 Thou/mm3 (3.8-10.6)
[2024-07-15 09:28] LABS: INR 1.1 (0.9-1.3); Partial Thromboplastin Time 27.8 Seconds (22.0-36.0); Prothrombin Time 11.9 Seconds (9.0-12.2)
[2024-07-15] MEDS: PANTOPRAZOLE INJ 40 MG VIAL IVP (09:36)
[2024-07-15] MEDS: ASPIRIN 81 MG CHEW PO (09:42)
[2024-07-15] MEDS: APIXABAN 2.5 MG TABLET 5 MG PO (09:42)
[2024-07-15 09:50] LABS: Glucose Estimated Average 100 mg/dL (80-131); Hemoglobin A1C 5.1 % Hgb (4.8-6.0)
[2024-07-15 09:51] LABS: Alanine Aminotransferase 14 U/L (10-49); Albumin, Serum 3.7 gm/dL (3.4-4.8); Albumin/Globulin Ratio 1.4 (1.2-2.2); Alkaline Phosphatase 69 U/L (46-116); Anion Gap 7 (7-16); Aspartate Amino Transferase 13 U/L (0-34); BUN/Creatinine Ratio 15 Ratio (12-20); Bilirubin,Total 0.5 mg/dL (0.3-1.2); Blood Urea Nitrogen 15 mg/dL (9-23); Calcium 8.9 mg/dL (8.3-10.6); Calcium (Corrected) 9.1 mg/dL (8.5-10.1); Carbon Dioxide 26.6 mMol/L (20.0-31.0); Chloride 108 mMol/L (98-107); Estimated Creatinine Clearance 62.5 mL/min (>60); Globulin 2.7 gm/dL (2.3-3.5); Glucose 102 mg/dL (74-106); Magnesium 2.1 mg/dL (1.6-2.6); Osmolality,Calculated 283 (275-295); Potassium 4.1 mMol/L (3.4-5.1); Sodium 142 mMol/L (136-145); Total Protein 6.4 gm/dL (5.7-8.2); eGFR > 60 See Note
[2024-07-15 12:00] VITALS: BP 158/89; PULSE 55; PULSE 61; RESP 18; TEMP 36.1; O2SAT 96
--- NOTE | 2024-07-15 14:14 | ESDS_ITS ---
<Statement entered by Muriel Rae MD - 07/21/24 16:26> I reviewed above note and agree with findings and plans. I have also personally examined the patient with medicine team and went over assessment and plan with medical team including technical intern and resident physician. Planned Discharge Date 07/15/24 DS: Providers Provider Date of admission: 07/14/24 16:15 Primary care physician: Mary Kate Valladares MD Admitting Provider: Muriel Rae MD Attending Provider on Admission: Muriel Rae MD Consults: 07/14/24 11:46 Consult to Neurology / Tele-Neurology Routine Comment: Consulting Provider: [facility] 07/14/24 16:52 Consult to Neurology / Tele-Neurology Routine Comment: Consulting Provider: Fernando Byers 07/14/24 17:41 Referral Speech Therapy Routine Comment: 07/15/24 10:05 Referral Physical Therapy Urgent Comment: Physician Instructions: Instructions: Patient might get DC today 07/15/24 10:06 Referral Speech Therapy Urgent Comment: Attending Provider on DC: Muriel Rae MD Discharging Provider: Muriel Rae MD DS: Diagnosis Problem List Completed Was Problem List Reviewed/Reconciled?: Yes Hospital Course Hospital Course Hospital course: 83-year-old male with past medical history of atrial fibrillation long-term, essential hypertension, multiple CVAs (most recent 1 in February of 2024, he was seen at [facility]), multiple DVTs s/p IVC filter, ascending aortic aneurysm, chronic diastolic heart failure (EF 55 to 60%), dementia, hypothyroidism, and BPH who was admitted to the hospital on 07/14/2024 due to acute encephalopathy, worsening left-sided weakness, and hypotension at home. to the ED with complaints of altered mental status and worsening left lower extremity weakness. Initially patient came in normotensive and afebrile. Initial labs were relevant for anemia (Hgb 8.6), but otherwise unremarkable. Initial imaging included EKG which showed A-fib with a heart rate of 68. Additional imaging included head CT which was unremarkable with only findings of old infarcts on the posterior right parietal lobe, right occipital lobe, left caudate nucleus, left occipital lobe, and right cerebellar hemisphere. Other additional imaging also included head/neck CTA which showed Ascending thoracic aorta 4 cm, 30 to 40% stenosis of M1 segment of left middle cerebral artery, but no significant neck arterial stenosis or cerebral large vessel occlusion or thrombus. Stroke alert was initiated in the ER due to patient's symptoms and teleneurology was consulted. On our initial assessment patient was back to baseline as. Patient is . Patient initially failed swallow screen therefore he was placed n.p.o. until the speech therapist and the next morning and patient was safe to be started on diet. Patient's blood pressure was also elevated and we allow for permissive hypertension up to 180 systolic blood pressure as per teleneurology recommendations. Patient received 1 dose of ceftriaxone for his positive UA for leukocyte esterase and nitrates. Today we had a thorough conversation with patient's and answered and explained all questions. Patient's MRI only s howed the old infarcts, but no new infarcts were noted. In hospital neurology stated that patient could be discharged at this time and that EEG would be done as an outpatient. Continue Eliquis for DVT. At the time of discharge patient was stable enough to be discharged home. Discharge plan: Stop Amlodipine until you See PCP hold hydralazine if systolic blood pressure is less than 140. Continue Eliquis for DVT treatment You have been started on ciprofloxacin 500 Mg twice daily for 2 days, until then hold nitrofurantoin 50 Mg daily, after completing 2 days of ciprofloxacin, start back nitrofurantoin 50 Mg daily. Continue all other medications as prescribed. You need to follow-up with Dr Byers for EEG out patient. Follow up with PCP within 1-2 weeks of discharge -Recommended to return back to emergency department if your symptoms worsens or persist. Problem list: #Acute encephalopathy #Left upper extremity worsening weakness #Hx of CVAs with left-sided weakness #Hx of dementia #Hx of atrial fibrillation #Hx of hypertension #Chronic diastolic heart failure (EF 55 to 60% 02/2025) #Hx of multiple DVTs s/p IVC filter #Hx of ascending aortic aneurysm #Hx of hypothyroidism #Hx of BPH #Chronic indwelling Gallagher catheter since February 2024 Case disclosed with Attending Dr. Rae and My senior Dr. Alvarado PGY2. Shelton Canela PGY1 Senior Resident Attestation: I discussed with and supervised the technical intern physician involved in the care of this patient. I personally saw and examined the patient and discussed the assessment and plan with the entire medicine team, including my attending. I agree with the discharge plan as documented above. Uri Alvarado MD PGY2 Internal Medicine Status at Discharge Overall status at discharge: patient is progressing back to baseline Time Spent with Patient Time attestation: Total time spent providing and/or coordinating discharge services: >35 min Exam Vital Signs Temp Pulse Resp BP Pulse Ox O2 Del Method 97.0 F 55 L 18 158/89 H 96 Room Air 07/15/24 12:00 07/15/24 12:00 07/15/24 12:00 07/15/24 12:00 07/15/24 12:00 07/15/24 12:00 Narrative Exam Physical exam limited due to patient's dementia General: Patient has dementia, in no acute distress Eyes: PERRL, EOMI. Anicteric, vision grossly intact Ears: No visible ear discharge, Hearing mildly impaired Nose: No nasal discharge. Mouth/Throat: Dry mucous membranes, no redness, no lesions. Neck: Neck supple, non-tender, no cervical lymphadenopathy. Lungs: Clear BURKE to auscultation and percussion, No accessory muscle use. Cardio: Normal S1/S2, irregularly irregular rhythm, no murmurs, no JVD Abdomen: Soft, but distended, non-tender, no palpable masses, peristalsis present, no guarding or rebound. Extremities: Symmetrical, no significant deformities, 1+ pitting edema, non- tender, peripheral pulses presents. Skin: No rashes, no lesions, warm to touch. Chronic venous stasis changes in BURKE LE. Neuro: Patient able to follow commands and move all extremities. L UE weaker from previous CVA. Discharge Plan Plan Patient Disposition: HOME (Self Care) Prescriptions/Referrals Prescriptions/Med Rec: New ciprofloxacin HCl 500 mg tablet 500 mg PO BID Qty: 5 0RF Continued cyanocobalamin (vitamin B-12) 500 mcg Tablet 1,000 mcg PO QDAY levothyroxine 50 mcg Tablet 50 mcg PO QDAY folic acid 1 mg Tablet 1 mg PO QDAY Eliquis DVT-PE Treat 30D Start 5 mg (74 tabs) tablets,dose pack 5 mg PO BID Qty: 74 0RF hydralazine 25 mg tablet 25 mg PO BID Qty: 30 0RF atorvastatin 40 mg tablet 40 mg PO HS Qty: 30 0RF furosemide [Lasix] 20 mg tablet 20 mg PO QDAY Qty: 30 0RF tamsulosin 0.4 mg capsule 0.4 mg PO 1XD donepezil 5 mg tablet 5 mg 1XD Patient Comments: TAKE 1 TABLET BY MOUTH EVERY DAY AT BEDTIME FOR 90 DAYS potassium chloride 8 mEq capsule, extended release 8 meq 1XD Patient Comments: TAKE 1 CAPSULE BY MOUTH EVERY DAY Held amlodipine 5 mg tablet 5 mg PO QMORNING Hold Instructions: untill see PCP nitrofurantoin macrocrystal 50 mg capsule 50 mg 1XD Hold Instructions: Resume on 07/18/24. Hold for 2 days until you complete ciprofloxacin for 2 days. Patient Comments: TAKE 1 CAPSULE BY MOUTH NIGHTLY AT BEDTIME Referrals: Mary Kate Valladares MD [Primary Care Provider] - Fernando Byers MD [Physician] - Patient/Caregiver Discharge Instructions Discharge Activity: activity as tolerated Other Discharge Activity Instructions:: Stop Amlodipine until you See PCP hold hydralazine if systolic blood pressure is less than 140. Continue Eliquis for DVT treatment You have been started on ciprofloxacin 500 Mg twice daily for 2 days, until then hold nitrofurantoin 50 Mg daily, after completing 2 days of ciprofloxacin, start back nitrofurantoin 50 Mg daily. Continue all other medications as prescribed. You need to follow-up with Dr Byers for EEG out patient. Follow up with PCP within 1-2 weeks of discharge -Recommended to return back to emergency department if your symptoms worsens or persist. Education Materials: ED Confusion Print Language: Ethiopian Stand Alone Forms: [employer] Award Info., Patient Portal Info Letter Discharge Order Discharge Orders: Discharge (Routine); Ordered 07/15/24 Ordered By: Patricia Cornejo Quality Discharge Quality Measures VTE prophylaxis
[2024-07-15 16:00] VITALS: BP 157/84; PULSE 60; PULSE 62; RESP 18; TEMP 36.2; O2SAT 97
--- NOTE | 2024-07-15 16:06 | PC.PT ---
Attempt to see the patient this morning, but patient is going to MRI, Re-attempt this afternoon at 1500, is at bedside. As per , patient is going home and just waiting for the nurse to change the patient. As per , Homehealth PT has been arranged. No need to see the patient for PT evaluation today. Will cancel PT evaluation.
--- NOTE | 2024-07-15 16:17 | PC.SS ---
PARTNERSHIP DEVELOPMENT MANAGER conducted bedside contact with the patient conduct initial assessment and to discuss discharge planning. At bedside with patient was spouse, Eduarda Nelson . Spouse confirmed demographic information. Patient resides at home with spouse. Patient utilizes a walker to assist with mobility. Patient does not utilize home oxygen. Patient requires assistance with completion of ADL?s. Patient?s spouse is medical surrogate decision maker. Patient?s PCP is Dr. Valladares. Dr. Madison. Dr. Montes is the patient?s neurologist. Patient utilizes [facility] for medication services. Plan is for the patient to return home at the time of discharge. Spouse will provide transportation on behalf of the patient. Patient to re-establish home health services with [facility]. No further intervention required at this time, hospital social worker will be available to address any further concerns. Next of Kin: Eduarda Nelson D/C Plan: Home
[2024-07-22 06:42] LABS: Vitamin B1 (Thiamine)* 9 nmol/L (8-30)
== END 2024-07-15 17:18 | disposition home or self-care (01) | DRG 71 ==
LOC: SERX 15:38 → SERHOLD 16:37 → S2NX 20:53
PROVIDERS: Admitting Provider Internal Medicine; Emergency Provider Emergency Medicine; PCP Family Medicine; Visit Provider Internal Medicine
DX: G93.40 Encephalopathy, unspecified (principal); I50.32 Chronic diastolic (congestive) heart failure; I69.354 Hemiplegia and hemiparesis following cerebral infarction affecting left non-dominant side; I48.91 Unspecified atrial fibrillation; E03.9 Hypothyroidism, unspecified; I11.0 Hypertensive heart disease with heart failure; F03.90 Unspecified dementia, unspecified severity, without behavioral disturbance, psychotic disturbance, mood disturbance, and anxiety; N40.0 Benign prostatic hyperplasia without lower urinary tract symptoms; D64.9 Anemia, unspecified; I95.9 Hypotension, unspecified; Z86.718 Personal history of other venous thrombosis and embolism; Z86.79 Personal history of other diseases of the circulatory system; Z98.84 Bariatric surgery status; Z78.1 Physical restraint status; Z79.01 Long term (current) use of anticoagulants; Z79.890 Hormone replacement therapy; Z79.899 Other long term (current) drug therapy
CPT/HCPCS: 36415; 70450; 70496; 70498; 70553; 80053; 80307; 81001; 82140; 83036; 83605; 83735; 83880; 84425; 84443; 84484; 85025; 85610; 85652; 85730; 86140; 87077; 87086; 87186; 93005; 96365; 96368; 99291; A4649; A9579; J2470; J3475; J3480; J7030; Q9967; A9270

== ENCOUNTER 2024-07-17 22:58 | Emergency (ER) | payer MEDICARE, BC, OTHER, SELFPAY ==
[2024-07-17 23:09] VITALS: PULSE 56; RESP 16; O2SAT 95; BMI 29.5
[2024-07-17 23:27] VITALS: BP 177/70; PULSE 57; RESP 19; TEMP 36.6; O2SAT 95
--- NOTE | 2024-07-17 23:31 | PC.NURSE ---
Pt to room 10 at this time from EMS; assumed care of pt.
--- NOTE | 2024-07-18 00:41 | PD.EDAMS ---
Altered Mental Status RME/HPI General Chief Complaint: Altered Mental Status Stated Complaint: AMS Time Seen by Provider: 07/18/24 00:00 Arrival date/time: 07/17/24 22:58 RME / HPI RME / HPI narrative: Dr. Chase's Main ED Evaluation: 83yo male with pmhx dementia, CVA (x3), aFib on Plavix, HTN, HLD BIBA from home accompanied by his son presents to the ED for a chief complaint of AMS. Patient's son states the patient's checked his blood pressure at home due to the patient being pale and found it to be 72/42, but endorses the patient was awake. Son states the patient has not been taking his amlodipine prior to his last admission, and was advised to hold his hydralazine by his PCP. Patient is still taking his Cipro (last day is today). Full ROS is unobtainable due to the patient's history of dementia. Related Data Home Medications ?Medication ?Instructions ?Recorded ?Confirmed cyanocobalamin (vitamin B-12) 500 1,000 mcg PO QDAY 08/30/21 07/14/24 mcg tablet folic acid 1 mg tablet 1 mg PO QDAY 08/30/21 07/14/24 levothyroxine 50 mcg tablet 50 mcg PO QDAY 08/30/21 07/14/24 amlodipine 5 mg tablet 5 mg PO QMORNING 06/05/24 07/14/24 Held on 07/15/24. Instructions: untill see PCP donepezil 5 mg tablet 5 mg 1XD 07/14/24 07/14/24 nitrofurantoin macrocrystal 50 mg 50 mg 1XD 07/14/24 07/14/24 capsule Held on 07/15/24. Instructions: Resume on 07/18/24. Hold for 2 days until you complete ciprofloxacin for 2 days. potassium chloride 8 mEq 8 meq 1XD 07/14/24 07/14/24 capsule,extended release tamsulosin 0.4 mg capsule 0.4 mg PO 1XD 07/14/24 07/14/24 Previous Rx's ?Medication ?Instructions ?Recorded apixaban 5 mg (74 tabs) tablets in 5 mg PO BID #74 tabs 06/10/24 a dose pack (Eliquis DVT-PE Treat 30D Start) atorvastatin 40 mg tablet 40 mg PO HS #30 tabs 06/10/24 furosemide 20 mg tablet (Lasix) 20 mg PO QDAY #30 tabs 06/10/24 hydralazine 25 mg tablet 25 mg PO BID #30 tabs 06/10/24 ciprofloxacin HCl 500 mg tablet 500 mg PO BID #5 tabs 07/15/24 ciprofloxacin HCl 500 mg tablet 500 mg PO BID #10 tabs 07/18/24 Allergies Allergy/AdvReac Type Severity Reaction Status Date / Time horseradish Allergy Severe Anaphylaxis Verified 06/09/23 11:16 phytonadione (vitamin K1) AdvReac Severe SEVERE Verified 06/09/23 11:16 BLEEDING warfarin AdvReac Severe SEVERE Verified 06/09/23 11:16 BLEEDING Review of Systems Review of Systems ROS Unobtainable: other (unobtainable due to the patient's hx of dementia) ED Exam General General appearance: Present other (awake, is looking around the room and has good eye contact, recognizes his son) Head Head exam: Present atraumatic and normocephalic Eye Eye exam: Present normal appearance, PERRL and EOMI ENT ENT exam: Present normal exam, normal oropharynx and mucous membranes moist Neck Neck exam: Present normal inspection and full ROM Chest Chest inspection: Present normal inspection and symmetric chest wall rise Respiratory Respiratory exam: Present normal lung sounds bilaterally Cardiovascular Cardiovascular exam: Present regular rate and normal rhythm Abdominal Exam Abdominal exam: Present soft and other (large); Absent tenderness or mass Extremities Exam Extremities exam: Present other (vascular changes to the BLE); Absent pedal edema Neurological Exam Neurological exam: Present other (awake, follows simple commands) Skin Skin exam: Present warm, dry, intact and other (decreased skin turgor; diffuse ecchymosis to the BUE of different stages) Course Quality Measures none Orders Category Date Time Status CXRP [XR chest 1V portable] Stat Exams 07/18/24 00:42 Completed BNP [B-Type Natriuretic Peptide] Stat Lab 07/18/24 00:58 Completed CBC Stat Lab 07/18/24 00:58 Completed CMP [Comprehensive Metabolic Panel] Stat Lab 07/18/24 00:58 Completed Urinalysis Stat Lab 07/18/24 01:00 Completed Vital Signs Vital signs: Vital Signs Temperature 98 F 07/17/24 23:27 Pulse Rate 57 L 07/17/24 23:27 Respiratory Rate 19 07/17/24 23:27 Blood Pressure 177/70 H 07/17/24 23:27 Pulse Oximetry (%) 95 07/17/24 23:27 Oxygen Delivery Method Room Air 07/17/24 23:27 Altered Mental Status Patient data External records reviewed:: [facility] previous records (Per chart review, patient was admitted here on 07/14/24 for AMS.) Clinical information provided by:: family Social determinants that could affect healthcare access:: none Patient has the following chronic illnesses:: dementia, CVA, HTN, HLD How is presenting disease/condition affected by chronic disease/condition?: uneffected by Evaluation data The following diagnostics were reviewed and interpreted by me:: lab results Lab and/or radiology exams considered but not ordered:: none Interpretation Summary: WBC count is normal, HnH is stable, CMP is normal, BNP is normal, UA is positive for a UTI, according to my interpretation. Medications / Prescriptions Medications or Prescriptions considered but not ordered:: none Medication administrations:: see above Consultations Consultation(s) initiated? (list below): No Diagnosis Differential diagnosis altered mental status: dementia, sepsis and other (pneumonia, dehydration, electrolyte abnormality) Most likely diagnosis given after review of the tests above:: see below Admission Indicated Admission indicated?: not indicated Admission Request Was there a request for admission?: No Disposition Plan Disposition Plan: Discharge Discharge Attestation Discharge Attestation: The patient and all family members were given an opportunity to ask questions and understood the discharge instructions. Discharge instructions specifically effects, indications for sooner follow up or return to the emergency department, and the expected course of current diagnosis. Patient condition: Stable Discharge Plan Plan Patient Disposition: HOME (Self Care) Patient condition on transfer: Stable Prescriptions/Referrals Prescriptions/Med Rec: New ciprofloxacin HCl 500 mg tablet 500 mg PO BID Qty: 10 0RF No Action cyanocobalamin (vitamin B-12) 500 mcg Tablet 1,000 mcg PO QDAY levothyroxine 50 mcg Tablet 50 mcg PO QDAY folic acid 1 mg Tablet 1 mg PO QDAY amlodipine 5 mg tablet 5 mg PO QMORNING Eliquis DVT-PE Treat 30D Start 5 mg (74 tabs) tablets,dose pack 5 mg PO BID Qty: 74 0RF hydralazine 25 mg tablet 25 mg PO BID Qty: 30 0RF atorvastatin 40 mg tablet 40 mg PO HS Qty: 30 0RF furosemide [Lasix] 20 mg tablet 20 mg PO QDAY Qty: 30 0RF tamsulosin 0.4 mg capsule 0.4 mg PO 1XD nitrofurantoin macrocrystal 50 mg capsule 50 mg 1XD Patient Comments: TAKE 1 CAPSULE BY MOUTH NIGHTLY AT BEDTIME donepezil 5 mg tablet 5 mg 1XD Patient Comments: TAKE 1 TABLET BY MOUTH EVERY DAY AT BEDTIME FOR 90 DAYS potassium chloride 8 mEq capsule, extended release 8 meq 1XD Patient Comments: TAKE 1 CAPSULE BY MOUTH EVERY DAY ciprofloxacin HCl 500 mg tablet 500 mg PO BID Qty: 5 0RF Problem List Clinical Impression: History of dementia Patient/Caregiver Discharge Instructions Education Materials: Dementia Caregiver Tips, ED Urinary Tract Infections in Men Additional Instructions: You possibly could be colonized in your urine and that is why it is always positive for infection however we will need to follow-up the urine culture with your primary care in the next 3 to 5 days. Today you do not have a fever and your white count is normal. Please continue all your medications as prescribed. Your blood pressure is stable today. Return to emergency department before your follow-up appointment if you are having worsening symptoms, or any other concerns. Also will come and do MRI Print Language: Greenlandic Stand Alone Forms: Faby Award Info., Patient Portal Info Letter
--- NOTE | 2024-07-18 00:42 | XR_ITS ---
Examination: AP chest single view Technique one AP portable semiupright chest single view Exam date and time: July 18, 2024 0158 hours Comparison June 28, 2024 INDICATIONS: Coughing today FINDINGS: Early pneumonia left base obscuring detail left hemidiaphragm Normal heart size Moderate ectasia thoracic aorta IMPRESSION: Early pneumonia left base
--- NOTE | 2024-07-18 00:48 | PC.NURSE ---
Dr. Chase at the bedside.
[2024-07-18 01:04] LABS: Collection Type, Urine Voided
[2024-07-18 01:12] LABS: Basophils % (Auto) 1 % (0-2.5); Eosinophils # (Auto) 0.1 Thou/mm3 (0.0-0.5); Eosinophils % (Auto) 1 % (0-10); Hematocrit 31.5 % (41.0-53.0); Hemoglobin 9.7 g/dL (13.5-16.0); Immature Granulocytes % (Auto) 0 % (0-0); Immature Granulocytes Auto 0.02 Thou/mm3 (0.00-0.00); Lymphocytes # (Auto) 1.3 Thou/mm3 (1.0-4.8); Lymphocytes % (Auto) 20 % (10-50); Mean Corpuscular HGB Conc 30.8 g/dl (31.0-37.0); Mean Corpuscular Hemoglobin 24.9 pg (25.0-35.0); Mean Corpuscular Volume 81 fL (80-100); Monocytes # (Auto) 0.4 Thou/mm3 (0.0-0.8); Monocytes % (Auto) 6 % (0-12); Neutrophils # (Auto) 4.6 Thou/mm3 (1.8-7.7); Neutrophils % (Auto) 73 % (37-80); Nucleated Red Blood Cell % 0 /100 WBC (0); Platelet Count 317 Thou/mm3 (140-440); RDW Standard Deviation 47.6 fL (35.1-43.9); Red Blood Count 3.89 Miln/mm3 (4.50-5.90); White Blood Count 6.3 Thou/mm3 (3.8-10.6)
[2024-07-18 01:27] LABS: B-Type Natriuretic Peptide 59 pg/mL (0-100)
[2024-07-18 01:28] LABS: Alanine Aminotransferase 15 U/L (10-49); Albumin/Globulin Ratio 1.5 (1.2-2.2); Alkaline Phosphatase 67 U/L (46-116); Anion Gap 7 (7-16); Aspartate Amino Transferase 13 U/L (0-34); BUN/Creatinine Ratio 18 Ratio (12-20); Bilirubin,Total 0.5 mg/dL (0.3-1.2); Blood Urea Nitrogen 21 mg/dL (9-23); Calcium 8.9 mg/dL (8.3-10.6); Calcium (Corrected) 8.9 mg/dL (8.5-10.1); Carbon Dioxide 29.8 mMol/L (20.0-31.0); Chloride 103 mMol/L (98-107); Creatinine (Component) 1.2 mg/dL (0.6-1.3); Estimated Creatinine Clearance 50.1 mL/min (>60); Globulin 2.6 gm/dL (2.3-3.5); Glucose 98 mg/dL (74-106); Osmolality,Calculated 282 (275-295); Potassium 4.1 mMol/L (3.4-5.1); Sodium 140 mMol/L (136-145); Total Protein 6.6 gm/dL (5.7-8.2); eGFR 59 See Note
[2024-07-18 01:42] VITALS: BP 144/87; PULSE 61; RESP 19; TEMP 36.6; O2SAT 95
[2024-07-18 01:49] LABS: Bacteria,Urine 1+; Bilirubin,Urine Negative (Negative); Blood,Urine Trace (Negative); Budding Yeast,Urine Present; Clarity,Urine Turbid (Clear/Hazy); Color,Urine Lt-Yellow (Lt Yel-Yel); Glucose, Urine Negative (Negative); Hyaline Casts,Urine < 1 /hpf (0-1); Ketones,Urine Negative (Negative); Leukocyte Esterase,Urine Positive (Negative); Nitrite,Urine Positive (Negative); PH,Urine 5.5 (5.0-7.0); Protein,Urine Trace (Neg - Trace); RBC,Urine 17 /hpf (0-3); Specific Gravity,Urine 1.015 (1.001-1.035); Squamous Epithelial Cell,Urine < 1 /hpf (0-5); Urobilinogen,Urine Negative mg/dL (0.0-1.0); WBC,Urine 111 /hpf (0-5)
== END 2024-07-18 03:10 | disposition home or self-care (01) ==
LOC: SERX 07-18 04:20
PROVIDERS: Emergency Provider Emergency Medicine; PCP Family Medicine
DX: F03.90 Unspecified dementia, unspecified severity, without behavioral disturbance, psychotic disturbance, mood disturbance, and anxiety (principal); E78.5 Hyperlipidemia, unspecified; I10 Essential (primary) hypertension; Z86.73 Personal history of transient ischemic attack (TIA), and cerebral infarction without residual deficits; I48.91 Unspecified atrial fibrillation
CPT/HCPCS: 36415; 71045; 80053; 81001; 83880; 84484; 85025; 99283

== ENCOUNTER 2024-07-29 23:21 | Emergency (ER) | payer MEDICARE, BC, OTHER, SELFPAY ==
[2024-07-29 23:22] VITALS: BMI 29.8
[2024-07-30] VITALS: BP 145/73; PULSE 68; RESP 18; TEMP 36.9; O2SAT 95
--- NOTE | 2024-07-30 00:05 | PD.EDMALE ---
ED Male Genitalurinary RME/HPI General Chief complaint: Urogenital-Male Stated complaint: CANT URINATE Time Seen by Provider: 07/29/24 23:25 Arrival date/time: 07/29/24 23:21 83-year-old male brought in by his for catheter insertion. Patient has had catheter in place for the last 4 months and was advised by urology that he could pull it today. Patient's states that they pulled it at 2 PM today he has not voided since then. Patient denies any abdominal pain or pressure penile discharge urinary leak with leakage or bleeding no fever chills or back pain. Limitations: no limitations Related Data Home Medications ?Medication ?Instructions ?Recorded ?Confirmed cyanocobalamin (vitamin B-12) 500 1,000 mcg PO QDAY 08/30/21 07/14/24 mcg tablet folic acid 1 mg tablet 1 mg PO QDAY 08/30/21 07/14/24 levothyroxine 50 mcg tablet 50 mcg PO QDAY 08/30/21 07/14/24 amlodipine 5 mg tablet 5 mg PO QMORNING 06/05/24 07/14/24 Held on 07/15/24. Instructions: untill see PCP donepezil 5 mg tablet 5 mg 1XD 07/14/24 07/14/24 nitrofurantoin macrocrystal 50 mg 50 mg 1XD 07/14/24 07/14/24 capsule Held on 07/15/24. Instructions: Resume on 07/18/24. Hold for 2 days until you complete ciprofloxacin for 2 days. potassium chloride 8 mEq 8 meq 1XD 07/14/24 07/14/24 capsule,extended release tamsulosin 0.4 mg capsule 0.4 mg PO 1XD 07/14/24 07/14/24 Previous Rx's ?Medication ?Instructions ?Recorded apixaban 5 mg (74 tabs) tablets in 5 mg PO BID #74 tabs 06/10/24 a dose pack (Vendavoquis DVT-PE Treat 30D Start) atorvastatin 40 mg tablet 40 mg PO HS #30 tabs 06/10/24 furosemide 20 mg tablet (Lasix) 20 mg PO QDAY #30 tabs 06/10/24 hydralazine 25 mg tablet 25 mg PO BID #30 tabs 06/10/24 ciprofloxacin HCl 500 mg tablet 500 mg PO BID #5 tabs 07/15/24 ciprofloxacin HCl 500 mg tablet 500 mg PO BID #10 tabs 07/18/24 Allergies Allergy/AdvReac Type Severity Reaction Status Date / Time horseradish Allergy Severe Anaphylaxis Verified 06/09/23 11:16 phytonadione (vitamin K1) AdvReac Severe SEVERE Verified 06/09/23 11:16 BLEEDING warfarin AdvReac Severe SEVERE Verified 06/09/23 11:16 BLEEDING Review of Systems Constitutional Constitutional: Denies chills and Denies fever(s) Genitourinary Genitourinary: Denies hematuria Comments: urinary retention Past Medical History Past Medical History NEUROLOGIC: Positive Neurological Disorders, Cerebrovascular Accident and Dementia CARDIAC: Positive Cardiac Disorders, Atrial Fibrillation, Hypercholesterolemia, Deep Vein Thrombosis and Hypertension; Negative Congestive Heart Failure RESPIRATORY: Negative Chronic Obstructive Pulmonary Disease (COPD) or Asthma GASTROINTESTINAL: Positive Gastrointestinal Disorders, Gall Bladder Disease and Gastrointestinal Bleed GENITOURINARY: Positive Genitourinary Disorders, Neurogenic Bladder and Benign Prostatic Hyperplasia; Negative Renal Disease, Kidney Stones, Polycystic Kidney Disease, Inguinal Hernia or Dialysis MUSCULOSKELETAL: Positive Musculoskeletal Disorders and Degenerative Disk Disease ENT: Positive Cataracts ENDOCRINE: Positive Endocrine Disorders and Hypothyroidism; Negative Diabetes Mellitus Type 1 or Diabetes Mellitus Type 2 HEMATOLOGIC: Negative Blood Disorders, Anemia, Leukemia, Hemophilia, Thalassemia, Sickle Cell Disease or Clotting Problems OTHER HISTORY: Negative Hospitalization, Autoimmune Disease, Down Syndrome, Developmental Delay, Shingles, Falls, Blood Transfusions, Anesthesia Reactions, Organ Transplant or Cancer Surgical History SURGICAL: Positive Gastric Bypass Surgery; Negative Organ Transplant Social History SMOKING STATUS: Never smoker SUBSTANCE USE: does not use ED Exam General Limitations: Present no limitations General appearance: Present alert and in no apparent distress Abdominal Exam Abdominal exam: Present soft and normal bowel sounds exam: Present normal inspection; Absent testicular tenderness, urethral discharge, scrotal swelling or circumcised Neurological Exam Neurological exam: Present alert, oriented X3 and CN II-XII intact Psychiatric Psychiatric exam: Present normal affect and normal mood Skin Skin exam: Present warm, dry, intact and normal color Course Quality Measures none Vital Signs Vital signs: Vital Signs Temperature 98.4 F 07/30/24 00:00 Pulse Rate 68 07/30/24 00:00 Respiratory Rate 18 07/30/24 00:00 Blood Pressure 145/73 H 07/30/24 00:00 Pulse Oximetry (%) 95 07/30/24 00:00 Oxygen Delivery Method Room Air 07/30/24 00:00 Urogenital - Male Patient data External records reviewed:: None Clinical information provided by:: patient Social determinants that could affect healthcare access:: none Patient has the following chronic illnesses:: urinary retention How is presenting disease/condition affected by chronic disease/condition?: caused by Evaluation data The following diagnostics were reviewed and interpreted by me:: other (specify) (none) Lab and/or radiology exams considered but not ordered:: none Interpretation Summary: none Medications / Prescriptions Medications or Prescriptions considered but not ordered:: none Medication administrations:: none Consultations Consultation(s) initiated? (list below): No Diagnosis Urogenital Male Differential Diagnosis: urinary tract infection, prostatitis and acute retention of urine Most likely diagnosis given after review of the tests above:: urinary retention Admission Indicated Admission indicated?: not indicated Admission Request Was there a request for admission?: No Disposition Plan Disposition Plan: Discharge Discharge Attestation Discharge Attestation: The patient and all family members were given an opportunity to ask questions and understood the discharge instructions. Discharge instructions specifically effects, indications for sooner follow up or return to the emergency department, and the expected course of current diagnosis. Patient condition: Stable Discharge Plan Plan Patient Disposition: HOME (Self Care) Prescriptions/Referrals Prescriptions/Med Rec: No Action cyanocobalamin (vitamin B-12) 500 mcg Tablet 1,000 mcg PO QDAY levothyroxine 50 mcg Tablet 50 mcg PO QDAY folic acid 1 mg Tablet 1 mg PO QDAY amlodipine 5 mg tablet 5 mg PO QMORNING Eliquis DVT-PE Treat 30D Start 5 mg (74 tabs) tablets,dose pack 5 mg PO BID Qty: 74 0RF hydralazine 25 mg tablet 25 mg PO BID Qty: 30 0RF atorvastatin 40 mg tablet 40 mg PO HS Qty: 30 0RF furosemide [Lasix] 20 mg tablet 20 mg PO QDAY Qty: 30 0RF tamsulosin 0.4 mg capsule 0.4 mg PO 1XD nitrofurantoin macrocrystal 50 mg capsule 50 mg 1XD Patient Comments: TAKE 1 CAPSULE BY MOUTH NIGHTLY AT BEDTIME donepezil 5 mg tablet 5 mg 1XD Patient Comments: TAKE 1 TABLET BY MOUTH EVERY DAY AT BEDTIME FOR 90 DAYS potassium chloride 8 mEq capsule, extended release 8 meq 1XD Patient Comments: TAKE 1 CAPSULE BY MOUTH EVERY DAY ciprofloxacin HCl 500 mg tablet 500 mg PO BID Qty: 5 0RF ciprofloxacin HCl 500 mg tablet 500 mg PO BID Qty: 10 0RF Problem List Clinical Impression: Acute urinary retention, Encounter for Gallagher catheter replacement Patient/Caregiver Discharge Instructions Discharge Activity: activity as tolerated Education Materials: ED Urinary Retention, Male Additional Instructions: Follow-up with urology as planned Print Language: Ecuadorean Stand Alone Forms: [employer] Award Info., Patient Portal Info Letter
== END 2024-07-30 00:31 | disposition home or self-care (01) ==
LOC: SERX 07-30 00:25
PROVIDERS: Emergency Provider Emergency Medicine; PCP Family Medicine
DX: R33.8 Other retention of urine (principal)
CPT/HCPCS: 51702; 99283

== ENCOUNTER → 2024-08-12 | Outpatient (CLI) | payer MEDICARE, BC, OTHER, SELFPAY ==
[2024-08-12 10:40] LABS: Collection Type, Urine Clean Catch; Squamous Epithelial Cell,Urine 0 /hpf (0-5)
[2024-08-12 11:01] LABS: Bacteria,Urine 1+; Bilirubin,Urine Negative (Negative); Blood,Urine 2+ (Negative); Color,Urine Yellow (Lt Yel-Yel); Glucose, Urine Negative (Negative); Ketones,Urine Negative (Negative); Leukocyte Esterase,Urine Positive (Negative); Nitrite,Urine Positive (Negative); PH,Urine 5.5 (5.0-7.0); Protein,Urine 2+ (Neg - Trace); RBC,Urine 290 /hpf (0-3); Specific Gravity,Urine 1.022 (1.001-1.035); Urobilinogen,Urine Negative mg/dL (0.0-1.0); WBC,Urine 237 /hpf (0-5)
[2024-08-12 11:24] LABS: Clarity,Urine Hazy (Clear/Hazy); Culture Indicated,Urine Yes
== END | disposition home or self-care (01) ==
LOC: SLAB 10:12
PROVIDERS: Referring Provider Family Medicine; Visit Provider Family Medicine
DX: R30.9 Painful micturition, unspecified (principal)
CPT/HCPCS: 81001; 87077; 87086; 87186

== ENCOUNTER → 2024-09-08 | Outpatient (CLI) | payer MEDICARE, BC, OTHER, SELFPAY ==
[2024-09-08 09:33] LABS: Collection Type, Urine Clean Catch; Squamous Epithelial Cell,Urine 0 /hpf (0-5)
[2024-09-08 10:07] LABS: Amorphous Crystals,Urine Present (Absent); Bacteria,Urine 4+; Bilirubin,Urine Negative (Negative); Blood,Urine 3+ (Negative); Clarity,Urine Turbid (Clear/Hazy); Color,Urine Yellow (Lt Yel-Yel); Glucose, Urine Negative (Negative); Ketones,Urine Negative (Negative); Leukocyte Esterase,Urine Positive (Negative); Nitrite,Urine Positive (Negative); Protein,Urine 1+ (Neg - Trace); RBC,Urine 523 /hpf (0-3); Specific Gravity,Urine 1.018 (1.001-1.035); Urobilinogen,Urine Negative mg/dL (0.0-1.0); WBC,Urine 49 /hpf (0-5)
== END | disposition home or self-care (01) ==
LOC: SLDO 09:10
PROVIDERS: PCP Family Medicine; Referring Provider Family Medicine; Visit Provider Family Medicine
DX: R33.8 Other retention of urine (principal)
CPT/HCPCS: 81001

== ENCOUNTER → 2024-10-09 | Outpatient (CLI) | payer MEDICARE, BC, OTHER, SELFPAY | END | disposition home or self-care (01) | LOC: SLDO 15:31 | PROVIDERS: PCP Nurse Practitioner Family; Referring Provider Nurse Practitioner Family; Visit Provider Nurse Practitioner Family | DX: N39.0 Urinary tract infection, site not specified (principal) | CPT/HCPCS: 87077; 87086; 87186 ==

== ENCOUNTER → 2024-11-13 | Outpatient (CLI) | payer MEDICARE, BC, OTHER, SELFPAY ==
[2024-11-13 15:34] LABS: Collection Type, Urine Clean Catch
[2024-11-13 16:56] LABS: Bacteria,Urine Rare; Bilirubin,Urine Negative (Negative); Blood,Urine Negative (Negative); Clarity,Urine Clear (Clear/Hazy); Color,Urine Lt-Yellow (Lt Yel-Yel); Glucose, Urine Negative (Negative); Hyaline Casts,Urine < 1 /hpf (0-1); Ketones,Urine Negative (Negative); Leukocyte Esterase,Urine Negative (Negative); Nitrite,Urine Negative (Negative); Protein,Urine Negative (Neg - Trace); RBC,Urine 6 /hpf (0-3); Specific Gravity,Urine 1.017 (1.001-1.035); Squamous Epithelial Cell,Urine < 1 /hpf (0-5); Urobilinogen,Urine Negative mg/dL (0.0-1.0); WBC,Urine 8 /hpf (0-5)
== END | disposition home or self-care (01) ==
LOC: SLDO 15:18
PROVIDERS: PCP Family Medicine; Referring Provider Family Medicine; Visit Provider Family Medicine
DX: N39.0 Urinary tract infection, site not specified (principal)
CPT/HCPCS: 81001; 87086

== ENCOUNTER → 2024-11-22 | Outpatient (CLI) | payer MEDICARE, BC, OTHER, SELFPAY ==
[2024-11-22 14:19] LABS: Collection Type, Urine Clean Catch
[2024-11-22 16:19] LABS: Bacteria,Urine Rare; Bilirubin,Urine Negative (Negative); Blood,Urine 2+ (Negative); Color,Urine Yellow (Lt Yel-Yel); Glucose, Urine Negative (Negative); Ketones,Urine Negative (Negative); Leukocyte Esterase,Urine Positive (Negative); Nitrite,Urine Positive (Negative); PH,Urine 6.5 (5.0-7.0); Protein,Urine 1+ (Neg - Trace); RBC,Urine 73 /hpf (0-3); Specific Gravity,Urine 1.019 (1.001-1.035); Squamous Epithelial Cell,Urine < 1 /hpf (0-5); Urobilinogen,Urine Negative mg/dL (0.0-1.0); WBC,Urine 150 /hpf (0-5)
[2024-11-22 16:46] LABS: Clarity,Urine Hazy (Clear/Hazy)
== END | disposition home or self-care (01) ==
LOC: SLDO 14:00
PROVIDERS: Referring Provider Family Medicine; Visit Provider Family Medicine
DX: N39.0 Urinary tract infection, site not specified (principal)
CPT/HCPCS: 81001; 87077; 87086; 87186

== ENCOUNTER 2024-12-18 08:16 | Emergency (ER) | payer MEDICARE, BC, OTHER, SELFPAY ==
[2024-12-18] VITALS (39 sets, daily range): BP systolic 154–162; BP diastolic 77–90; PULSE 60–103; RESP 12–24; TEMP 36.6; O2SAT 72–98
--- NOTE | 2024-12-18 09:02 | PC.NURSE ---
PT BIBA FROM HOME FOR RIGHT LEG SWELLING. PER PT HAS HX OF DVTS SO SHE WAS CONCERNED, ALSO THAT PT HAS HAD A UTI FOR A FEW DAYS. PT IS ALERT, UNABLE TO TELL ME HIS NAME OR GIVE ME ANY OTHER INFORMATION. PT HYPERTENSIVE ON TELE, CALL [facility] IN [place]ACH.
--- NOTE | 2024-12-18 11:26 | EKG_ITS ---
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
--- NOTE | 2024-12-18 11:26 | XR_ITS ---
Examination: Venous duplex lower extremity sonogram, bilateral. 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 B-mode/2-D grayscale imaging of vascular structures and Doppler spectral analysis (waveforms) and color performed Both legs are examined. Findings: Extensive bilateral occlusive thrombus entire deep venous systems right and left legs IMPRESSION: Extensive likely chronic DVT lower extremities
--- NOTE | 2024-12-18 11:28 | XR_ITS ---
Examination: AP chest single view Technique one AP portable upright chest single view Date and time: December 18, 2024 1202 hours Comparison July 18, 2024 INDICATIONS: Difficulty breathing this week. FINDINGS: Normal heart size Ectatic thoracic aorta. Suspicious for mild pneumonia left base No pulmonary edema IMPRESSION: Suspicious for mild pneumonia left base No pulmonary edema
--- NOTE | 2024-12-18 11:29 | PD.EDEXREM ---
ED Extremity Problem RME/HPI General Chief complaint: Extremity Problem,Nontraumatic Stated complaint: SWOLLEN LEG Time Seen by Provider: 12/18/24 10:21 Arrival date/time: 12/18/24 08:16 RME / HPI RME / HPI Narrative: 84-year-old male patient was brought in by family for evaluation regarding lower leg swelling. Patient woke up with bilateral lower leg swelling, severity mild. Patient is currently taking Eliquis for DVT. is concerned that there might be recurrence of DVT. Patient was also noted to have initially the patient's presentation was very concerning for a multitude of possible potentially serious differential diagnosis including UTI, PID STD and Acute Pyelonephritis but after an in depth review of systems, focused physical exam and U/A showed significant WBC suggestive of UTI and appears to be safe for discharge and treatment as an outpatient., On chronic Gallagher catheter, last antibiotic given was 3 days ago. Denies any other complaints. No fever no cough no other complaints noted. Related Data Home Medications ?Medication ?Instructions ?Recorded ?Confirmed cyanocobalamin (vitamin B-12) 500 1,000 mcg PO QDAY 08/30/21 07/14/24 mcg tablet folic acid 1 mg tablet 1 mg PO QDAY 08/30/21 07/14/24 levothyroxine 50 mcg tablet 50 mcg PO QDAY 08/30/21 07/14/24 amlodipine 5 mg tablet 5 mg PO QMORNING 06/05/24 07/14/24 Held on 07/15/24. Instructions: untill see PCP donepezil 5 mg tablet 5 mg 1XD 07/14/24 07/14/24 nitrofurantoin macrocrystal 50 mg 50 mg 1XD 07/14/24 07/14/24 capsule Held on 07/15/24. Instructions: Resume on 07/18/24. Hold for 2 days until you complete ciprofloxacin for 2 days. potassium chloride 8 mEq 8 meq 1XD 07/14/24 07/14/24 capsule,extended release tamsulosin 0.4 mg capsule 0.4 mg PO 1XD 07/14/24 07/14/24 Previous Rx's ?Medication ?Instructions ?Recorded apixaban 5 mg (74 tabs) tablets in 5 mg PO BID #74 tabs 06/10/24 a dose pack (Eliquis DVT-PE Treat 30D Start) atorvastatin 40 mg tablet 40 mg PO HS #30 tabs 06/10/24 furosemide 20 mg tablet (Lasix) 20 mg PO QDAY #30 tabs 06/10/24 hydralazine 25 mg tablet 25 mg PO BID #30 tabs 06/10/24 ciprofloxacin HCl 500 mg tablet 500 mg PO BID #5 tabs 07/15/24 ciprofloxacin HCl 500 mg tablet 500 mg PO BID #10 tabs 07/18/24 Allergies Allergy/AdvReac Type Severity Reaction Status Date / Time horseradish Allergy Severe Anaphylaxis Verified 12/18/24 08:46 phytonadione (vitamin K1) AdvReac Severe SEVERE Verified 12/18/24 08:46 BLEEDING warfarin AdvReac Severe SEVERE Verified 12/18/24 08:46 BLEEDING Review of Systems Review of Systems Narrative Review of Systems: Review of system reviewed and within normal limits except mentioned in HPI ED Exam Narrative Physical exam: VITAL SIGNS: Reviewed. GENERAL APPEARANCE: Alert and interactive, follows commands, no acute distress, HEAD AND FACE: Non-traumatic. ENT: PERRL, pink conjunctivitis, eyelid no trauma, Mucous membrane moist. NECK: Supple, nontender, no nuchal rigidity. CHEST: No tenderness, no crepitus, no paradoxical movement, no retractions. LUNGS: Clear, well ventilated, symmetric, no rales, no wheezing, no ronchi, no stridor, good breath sounds bilaterally. HEART: Regular rate, regular rhythm, no murmur, no gallops. ABDOMEN: Soft, positive bowel sounds, nondistended, no guarding, nontender, no rebound, no masses, RECTAL: Deferred. GENITAL: Deferred. NEUROLOGICAL: Gross motor function intact sensory function intact, Appropriate for age. MUSCULOSKELETAL: low back nontender, full range of motion. EXTREMITIES: Bilateral lower extremity swelling, nontender no redness with limited range of motion. Distal neurovascular status intact SKIN: Color pink, dry, no rash, no lacerations, no abrasions, no contusions. LYMPHATICS: Deferred. Course Quality Measures none Orders Category Date Time Status EKG (ED ONLY) *Do not use* NOW Care 12/18/24 11:26 Completed Gallagher [Urinary Catheter, Remove] ONCE Care 12/18/24 11:26 Completed Gallagher [Urinary Catheter] QS Care 12/18/24 11:26 Active Gallagher to [employer] Routine Care 12/18/24 11:27 Ordered EKG (ED Only) Stat Exams 12/18/24 11:26 Draft US venous doppler LE BI Stat Exams 12/18/24 11:26 Completed XR chest 1V Stat Exams 12/18/24 11:28 Completed BNP [B-Type Natriuretic Peptide] Stat Lab 12/18/24 12:36 Completed CBC Stat Lab 12/18/24 12:36 Completed Comprehensive Metabolic Panel Stat Lab 12/18/24 12:36 Completed Partial Thromboplastin Time Stat Lab 12/18/24 12:36 Completed Prothrombin Time with INR Stat Lab 12/18/24 12:36 Completed Troponin I Stat Lab 12/18/24 12:36 Completed UA, C/S IF [Urinalysis, C/S if Indicated] Stat Lab 12/18/24 12:50 Completed Urine Culture Stat Lab 12/18/24 12:50 Received Potassium Chloride [K-Dur] Med 12/18/24 13:27 Discontinued 40 meq PO X1 ONE Vital Signs Vital signs: Vital Signs Temperature 97.9 F 12/18/24 08:43 Pulse Rate 103 H 12/18/24 08:43 Respiratory Rate 17 12/18/24 08:43 Blood Pressure 159/90 H 12/18/24 08:43 Pulse Oximetry (%) 97 12/18/24 08:43 Oxygen Delivery Method Room Air 12/18/24 08:43 Extremity Problem MDM Narrative MDM Narrative:: 84-year-old male patient was brought in by family for evaluation regarding lower leg swelling. Patient woke up with bilateral lower leg swelling, severity mild. Patient is currently taking Eliquis for DVT. is concerned that there might be recurrence of DVT. Patient was also noted to have initially the patient's presentation was very concerning for a multitude of possible potentially serious differential diagnosis including UTI, PID STD and Acute Pyelonephritis but after an in depth review of systems, focused physical exam and U/A showed significant WBC suggestive of UTI and appears to be safe for discharge and treatment as an outpatient., On chronic Gallagher catheter, last antibiotic given was 3 days ago. Denies any other complaints. No fever no cough no other complaints noted. Gallagher catheter was changed with a new 1, urinalysis showed pyuria however patient is asymptomatic WBC count in the CBC is no leukocytosis. I believe patient's pyuria is secondary to chronic Gallagher catheter. I do not believe patient is needing antibiotic at this time. Ultrasound of the lower extremity showed chronic extensive DVT results discussed with the family. Currently patient is taking Eliquis. EKG showed sinus rhythm, ventricular rate of 60 bpm, no ST segment elevation or depression noted. Patient data External records reviewed:: None Clinical information provided by:: patient Social determinants that could affect healthcare access:: none Patient has the following chronic illnesses:: History of chronic DVT hypertension, How is presenting disease/condition affected by chronic disease/condition?: exacerbated by Evaluation data The following diagnostics were reviewed and interpreted by me:: lab results, radiology exam(s) and EKG tracing(s) Lab and/or radiology exams considered but not ordered:: None Interpretation Summary: See results MDM Medications / Prescriptions Medications or Prescriptions considered but not ordered:: None Medication administrations:: Medication Administration History Discontinued Medications Potassium Chloride (Potassium Chloride 20 Meq Tabcr) 40 meq PO X1 ONE Stop: 12/18/24 13:28 None Consultations Consultation(s) initiated? (list below): No Diagnosis Extremity Problem Differential Diagnosis: deep vein thrombosis of lower extremity Most likely diagnosis given after review of the tests above:: Lower leg edema, chronic, chronic DVT, sterile pyuria, secondary to chronic Gallagher catheter, asymptomatic UTI Admission Indicated Admission indicated?: not indicated Admission Request Was there a request for admission?: No Disposition Plan Disposition Plan: Discharge Discharge Attestation Discharge Attestation: The patient and all family members were given an opportunity to ask questions and understood the discharge instructions. Discharge instructions specifically effects, indications for sooner follow up or return to the emergency department, and the expected course of current diagnosis. Patient condition: Stable Discharge Plan Plan Patient Disposition: HOME (Self Care) Discharge Disposition comment: Stable Prescriptions/Referrals Prescriptions/Med Rec: No Action cyanocobalamin (vitamin B-12) 500 mcg Tablet 1,000 mcg PO QDAY levothyroxine 50 mcg Tablet 50 mcg PO QDAY folic acid 1 mg Tablet 1 mg PO QDAY amlodipine 5 mg tablet 5 mg PO QMORNING Eliquis DVT-PE Treat 30D Start 5 mg (74 tabs) tablets,dose pack 5 mg PO BID Qty: 74 0RF hydralazine 25 mg tablet 25 mg PO BID Qty: 30 0RF atorvastatin 40 mg tablet 40 mg PO HS Qty: 30 0RF furosemide [Lasix] 20 mg tablet 20 mg PO QDAY Qty: 30 0RF tamsulosin 0.4 mg capsule 0.4 mg PO 1XD nitrofurantoin macrocrystal 50 mg capsule 50 mg 1XD Patient Comments: TAKE 1 CAPSULE BY MOUTH NIGHTLY AT BEDTIME donepezil 5 mg tablet 5 mg 1XD Patient Comments: TAKE 1 TABLET BY MOUTH EVERY DAY AT BEDTIME FOR 90 DAYS potassium chloride 8 mEq capsule, extended release 8 meq 1XD Patient Comments: TAKE 1 CAPSULE BY MOUTH EVERY DAY ciprofloxacin HCl 500 mg tablet 500 mg PO BID Qty: 5 0RF ciprofloxacin HCl 500 mg tablet 500 mg PO BID Qty: 10 0RF Referrals: Mary Kate Valladares MD [Primary Care Provider] - In 1 week Problem List Clinical Impression: DVT of lower extremity, bilateral, Lower extremity edema, Sterile pyuria Patient/Caregiver Discharge Instructions Discharge Activity: activity as tolerated Education Materials: ED Deep Vein Thrombosis (DVT) Additional Instructions: Thank you for the opportunity for serving you today. You are stable for discharged . You are advised to: Follow-up with your PCP in 1 to 2 days Return to ED for worsening of symptoms Elevate lower extremity as needed Please wear compression stocking in the morning remove it during the night Continue taking your Eliquis. Print Language: Yi Stand Alone Forms: Faby Award Info., Patient Portal Info Letter PIEDAD/EDI Supervising Physician PIEDAD/EDI Supervising Physician: MD Lynda
--- NOTE | 2024-12-18 11:59 | PC.NURSE ---
pt alvares changed at this time.
[2024-12-18 12:50] LABS: Basophils % (Auto) 1 % (0-2.5); Eosinophils # (Auto) 0.1 Thou/mm3 (0.0-0.5); Eosinophils % (Auto) 2 % (0-10); Hematocrit 27.8 % (41.0-53.0); Immature Granulocytes % (Auto) 0 % (0-0); Immature Granulocytes Auto 0.01 Thou/mm3 (0.00-0.00); Lymphocytes # (Auto) 1.5 Thou/mm3 (1.0-4.8); Lymphocytes % (Auto) 29 % (10-50); Mean Corpuscular HGB Conc 29.9 g/dl (31.0-37.0); Mean Corpuscular Hemoglobin 21.3 pg (25.0-35.0); Mean Corpuscular Volume 72 fL (80-100); Monocytes # (Auto) 0.3 Thou/mm3 (0.0-0.8); Monocytes % (Auto) 6 % (0-12); Neutrophils # (Auto) 3.4 Thou/mm3 (1.8-7.7); Neutrophils % (Auto) 63 % (37-80); Nucleated Red Blood Cell % 0 /100 WBC (0); Platelet Count 215 Thou/mm3 (140-440); RDW Standard Deviation 45.8 fL (35.1-43.9); Red Blood Count 3.89 Miln/mm3 (4.50-5.90); White Blood Count 5.3 Thou/mm3 (3.8-10.6)
[2024-12-18 13:04] LABS: INR 1.2 (0.9-1.3); Partial Thromboplastin Time 30.2 Seconds (22.0-36.0); Prothrombin Time 12.5 Seconds (9.0-12.2)
[2024-12-18 13:09] LABS: B-Type Natriuretic Peptide 71 pg/mL (0-100)
[2024-12-18 13:11] LABS: Alanine Aminotransferase 18 U/L (10-49); Albumin, Serum 3.8 gm/dL (3.4-4.8); Albumin/Globulin Ratio 1.7 (1.2-2.2); Alkaline Phosphatase 59 U/L (46-116); Anion Gap 7 (7-16); Aspartate Amino Transferase 18 U/L (0-34); BUN/Creatinine Ratio 11 Ratio (12-20); Bilirubin,Total 0.5 mg/dL (0.3-1.2); Blood Urea Nitrogen 15 mg/dL (9-23); Calcium 8.7 mg/dL (8.3-10.6); Calcium (Corrected) 8.9 mg/dL (8.5-10.1); Carbon Dioxide 26.4 mMol/L (20.0-31.0); Chloride 107 mMol/L (98-107); Creatinine (Component) 1.4 mg/dL (0.6-1.3); Globulin 2.2 gm/dL (2.3-3.5); Glucose 273 mg/dL (74-106); Osmolality,Calculated 290 (275-295); Potassium 4.6 mMol/L (3.4-5.1); Sodium 140 mMol/L (136-145); Troponin I < 0.020 ng/mL (0.0-0.045); eGFR 49 See Note
[2024-12-18 13:21] LABS: Hemoglobin 8.3 g/dL (13.5-16.0)
[2024-12-18 13:26] LABS: Collection Type, Urine Catheter; Squamous Epithelial Cell,Urine 0 /hpf (0-5)
[2024-12-18 13:50] LABS: Bacteria,Urine 1+; Bilirubin,Urine Negative (Negative); Blood,Urine 1+ (Negative); Budding Yeast,Urine Present; Clarity,Urine Turbid (Clear/Hazy); Color,Urine Yellow (Lt Yel-Yel); Glucose, Urine Negative (Negative); Ketones,Urine Negative (Negative); Leukocyte Esterase,Urine Positive (Negative); Nitrite,Urine Positive (Negative); PH,Urine 6.5 (5.0-7.0); Protein,Urine 1+ (Neg - Trace); RBC,Urine 32 /hpf (0-3); Specific Gravity,Urine 1.022 (1.001-1.035); Urobilinogen,Urine Negative mg/dL (0.0-1.0); WBC,Urine 172 /hpf (0-5)
[2024-12-18 13:53] LABS: Culture Indicated,Urine Yes
== END 2024-12-18 17:24 | disposition home or self-care (01) ==
PROVIDERS: Nurse Practitioner Family; Emergency Provider Emergency Medicine; PCP Family Medicine
DX: I82.403 Acute embolism and thrombosis of unspecified deep veins of lower extremity, bilateral (principal); R94.31 Abnormal electrocardiogram [ECG] [EKG]; I77.810 Thoracic aortic ectasia
CPT/HCPCS: 51702; 36415; 71045; 80053; 81001; 83880; 84484; 85025; 85610; 85730; 87077; 87086; 87186; 93005; 93970; 99284; A4314

== ENCOUNTER 2025-01-15 00:05 | Emergency (ER) | payer MEDICARE, BC, OTHER, SELFPAY ==
[2025-01-15 00:09] VITALS: BMI 29.8
[2025-01-15 00:31] VITALS: BP 181/90; PULSE 63; RESP 16; TEMP 36.6; O2SAT 97
--- NOTE | 2025-01-15 02:47 | EDNOTE_ITS ---
<Statement entered by Valerie Burns MD - 01/15/25 04:48> As co-signing physician, I was present and available for consult prn. I concur with the plan and care as documented by the midlevel provider. ED Male Genitalurinary RME/HPI General Chief complaint: Urogenital-Male Stated complaint: PAIN PENIS AFTER FLORES CHANGE YESTERDAY Time Seen by Provider: 01/15/25 01:27 Arrival date/time: 01/15/25 00:05 84M with history of afib, HTN, CVA, DVT, AAA, CHF, hypothyroidism, and BPH (w/ chronic Flores) presents to ED with penile pain after Flores was changed yesterday. notes Flores size is smaller than usual. Limitations: no limitations Related Data Home Medications ?Medication ?Instructions ?Recorded ?Confirmed cyanocobalamin (vitamin B-12) 500 1,000 mcg PO QDAY 07/14/24 mcg tablet folic acid 1 mg tablet 1 mg PO QDAY 08/30/21 levothyroxine 50 mcg tablet 50 mcg PO QDAY 08/30/21 amlodipine 5 mg tablet 5 mg PO QMORNING 06/05/24 Held on 07/15/24. Instructions: untill see PCP donepezil 5 mg tablet 5 mg 1XD 07/14/24 07/14/24 nitrofurantoin macrocrystal 50 mg 50 mg 1XD 07/14/24 0 07/14/24 capsule Held on 07/15/24. Instructions: Resume on 07/18/24. Hold for 2 days until you complete ciprofloxacin for 2 days. potassium chloride 8 mEq 8 meq 1XD 07/14/24 07/14/24 capsule,extended release tamsulosin 0.4 mg capsule 0.4 mg PO 1XD 07/14/2407/14 Previous Rx's ?Medication ?Instructions ?Recorded apixaban 5 mg (74 tabs) tablets in 5 mg PO BID #74 tab s 06/10/24 a dose pack (Eliquis DVT-PE Treat 30D Start) atorvastatin 40 mg tablet 40 mg PO HS #30 tabs 4 furosemide 20 mg tablet (Lasix) 20 mg PO QDAY #30 tabs 06/10/24 hydralazine 25 mg tablet 25 mg PO BID #30 tabs ciprofloxacin HCl 500 mg tablet 500 mg PO BID #5 tabs 07/15/24 ciprofloxacin HCl 500 mg tablet 500 mg PO BID #10 tabs 07/18/24 Allergies Allergy/AdvReac Type Severity Reaction Status Date / Time horseradish Allergy Severe Anaphylaxis Verified 01/15/25 00:08 amlodipine Allergy Hypotension Verified 01/15/25 00:08 carvedilol (From Coreg) Allergy LOW HEART Verified 01/15/25 00:08 RATE phytonadione (vitamin K1) AdvReac Severe SEVERE Verified 01/15/25 00:08 BLEEDING warfarin AdvReac Severe SEVERE Verified 01/15/25 00:08 BLEEDING Review of Systems Review of Systems Systems Reviewed: All systems reviewed, normal except as documented Constitutional Constitutional: Reports system reviewed and no additional complaints, except as documented, Denies fever(s) and Denies headache(s) ENT Ears, Nose, Mouth, and Throat: Denies disequilibrium and Denies headache(s) Cardiovascular Cardiovascular: Reports system reviewed and no additional complaints, except as documented, Denies chest pain and Denies dyspnea Respiratory Respiratory: Reports system reviewed and no additional complaints, except as documented, Denies cough and Denies dyspnea Gastrointestinal Gastrointestinal: Reports system reviewed and no additional complaints, except as documented, Denies abdominal pain, Denies nausea and Denies vomiting Genitourinary Genitourinary: Reports as per HPI and Reports genital pain Neurologic Neurologic: Reports system reviewed and no additional complaints, except as documented, Denies confusion, Denies disequilibrium and Denies headache(s) Psychiatric Psychiatric: Denies confusion Past Medical History Past Medical History NEUROLOGIC: Positive Neurological Disorders, Cerebrovascular Accident and Dementia CARDIAC: Positive Cardiac Disorders, Atrial Fibrillation, Hypercholesterolemia, Deep Vein Thrombosis and Hypertension; Negative Congestive Heart Failure RESPIRATORY: Negative Chronic Obstructive Pulmonary Disease (COPD) or Asthma GASTROINTESTINAL: Positive Gastrointestinal Disorders, Gall Bladder Disease and Gastrointestinal Bleed GENITOURINARY: Positive Genitourinary Disorders, Neurogenic Bladder and Benign Prostatic Hyperplasia; Negative Renal Disease, Kidney Stones, Polycystic Kidney Disease, Inguinal Hernia or Dialysis MUSCULOSKELETAL: Positive Musculoskeletal Disorders and Degenerative Disk Disease ENT: Positive Cataracts ENDOCRINE: Positive Endocrine Disorders and Hypothyroidism; Negative Diabetes Mellitus Type 1 or Diabetes Mellitus Type 2 HEMATOLOGIC: Negative Blood Disorders, Anemia, Leukemia, Hemophilia, Thala ssemia, Sickle Cell Disease or Clotting Problems OTHER HISTORY: Negative Hospitalization, Autoimmune Disease, Down Syndrome, Developmental Delay, Shingles, Falls, Blood Transfusions, Anesthesia Reactions, Organ Transplant or Cancer Surgical History SURGICAL: Positive Gastric Bypass Surgery; Negative Organ Transplant Social History SMOKING STATUS: Never smoker SUBSTANCE USE: does not use ED Exam General Limitations: Present no limitations General appearance: Present alert and in no apparent distress Head Head exam: Present atraumatic Eye Eye exam: Present normal appearance, PERRL and EOMI ENT ENT exam: Present normal exam, normal oropharynx and mucous membranes moist Neck Neck exam: Present normal inspection, full ROM and trachea midline Chest Chest inspection: Present normal inspection and symmetric chest wall rise Respiratory Respiratory exam: Present normal lung sounds bilaterally Cardiovascular Cardiovascular exam: Present regular rate, normal rhythm and normal heart sounds Abdominal Exam Abdominal exam: Present soft and normal bowel sounds Extremities Exam Extremities exam: Present normal inspection and full ROM Back Exam Back exam: Present normal inspection and full ROM Neurological Exam Neurological exam: Present alert, oriented X3 and CN II-XII intact Psychiatric Psychiatric exam: Present normal affect and normal mood Skin Skin exam: Present warm, dry, intact and normal color Course Quality Measures none Orders Category Date Time Status Catheter [Urinary Catheter] QS Care 01/15/25 01:29 Completed Flores to Leg Bag Routine Care 01/15/25 01:29 Ordered Lidocaine Jelly 2% Urojet [Xylocaine Jelly 2% Urojet] Med 01/15/25 01:29 Discontinued See Dose Instructions TOP X1 ONE Vital Signs Vital signs: Vital Signs Temperature 97.9 F 01/15/25 00:31 Pulse Rate 63 01/15/25 00:31 Respiratory Rate 16 01/15/25 00:31 Blood Pressure 181/90 H 01/15/25 00:31 Pulse Oximetry (%) 97 01/15/25 00:31 Oxygen Delivery Method Room Air 01/15/25 00:31 O2 at 97% on RA and WNLs Urogenital - Male MDM Narrative MDM Narrative:: 84M with history of afib, HTN, CVA, DVT, AAA, CHF, hypothyroidism, and BPH (w/ chronic Flores) presents to ED with penile pain after Flores was changed yesterday. notes Flores size is smaller than usual. 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 Patient is afebrile, calm, and alert. Flores swabbed and pain relieved. Patient data External records reviewed:: [facility] previous records Clinical information provided by:: patient Social determinants that could affect healthcare access:: none Patient has the following chronic illnesses:: afib, HTN, CVA, DVT, AAA, CHF, hypothyroidism, and BPH (w/ chronic Flores) How is presenting disease/condition affected by chronic disease/condition?: exacerbated by Evaluation data The following diagnostics were reviewed and interpreted by me:: other (specify) (none) Lab and/or radiology exams considered but not ordered:: not ordered Interpretation Summary: n/a Medications / Prescriptions Medications or Prescriptions considered but not ordered:: ordered Medication administrations:: Medication Administration History Discontinued Medications Lidocaine HCl (Lidocaine Jelly 2% (Urojet) 10 Ml Tube) 0 ml TOP X1 ONE Stop: 01/15/25 01:30 Last Admin: 01/15/25 01:57 Dose: Not Given Documented By: HUNTER Non-Admin Reason: Patient Refused above Consultations Consultation(s) initiated? (list below): No Diagnosis Urogenital Male Differential Diagnosis: urinary tract infection, priapism, urethritis, epididymitis, genital herpes simplex, prostatitis, acute retention of urine, inguinal hernia and other (pain due to GI device) Most likely diagnosis given after review of the tests above:: pain due to GI device Admission Indicated Admission indicated?: not indicated Admission Request Was there a request for admission?: No Disposition Plan Disposition Plan: Discharge Discharge Attestation Discharge Attestation: The patient and all family members were given an opportunity to ask questions and understood the discharge instructions. Discharge instructions specifically effects, indications for sooner follow up or return to the emergency department, and the expected course of current diagnosis. Patient condition: Stable Discharge Plan Plan Patient Disposition: HOME (Self Care) Discharge Disposition comment: Stable Prescriptions/Referrals Prescriptions/Med Rec: No Action cyanocobalamin (vitamin B-12) 500 mcg Tablet 1,000 mcg PO QDAY levothyroxine 50 mcg Tablet 50 mcg PO QDAY folic acid 1 mg Tablet 1 mg PO QDAY amlodipine 5 mg tablet 5 mg PO QMORNING Eliquis DVT-PE Treat 30D Start 5 mg (74 tabs) tablets,dose pack 5 mg PO BID Qty: 74 0RF hydralazine 25 mg tablet 25 mg PO BID Qty: 30 0RF atorvastatin 40 mg tablet 40 mg PO HS Qty: 30 0RF furosemide [Lasix] 20 mg tablet 20 mg PO QDAY Qty: 30 0RF tamsulosin 0.4 mg capsule 0.4 mg PO 1XD nitrofurantoin macrocrystal 50 mg capsule 50 mg 1XD Patient Comments: TAKE 1 CAPSULE BY MOUTH NIGHTLY AT BEDTIME donepezil 5 mg tablet 5 mg 1XD Patient Comments: TAKE 1 TABLET BY MOUTH EVERY DAY AT BEDTIME FOR 90 DAYS potassium chloride 8 mEq capsule, extended release 8 meq 1XD Patient Comments: TAKE 1 CAPSULE BY MOUTH EVERY DAY ciprofloxacin HCl 500 mg tablet 500 mg PO BID Qty: 5 0RF ciprofloxacin HCl 500 mg tablet 500 mg PO BID Qty: 10 0RF Problem List Clinical Impression: Pain due to genitourinary device Patient/Caregiver Discharge Instructions Education Materials: Complementary Care for Pain Additional Instructions: Please follow-up with PCP within 24-48 hours and return immediately if symptoms worsen. Print Language: Spanish Stand Alone Forms: Patient Portal Info Letter PIEDAD/EDI Supervising Physician PIEDAD/EDI Supervising Physician: Dr. Burns
== END 2025-01-15 02:10 | disposition home or self-care (01) ==
LOC: SERX 02:01
PROVIDERS: Emergency Provider Emergency Medicine; PCP Family Medicine
DX: T83.84XA Pain due to genitourinary prosthetic devices, implants and grafts, initial encounter (principal); Y84.6 Urinary catheterization as the cause of abnormal reaction of the patient, or of later complication, without mention of misadventure at the time of the procedure; N48.89 Other specified disorders of penis
CPT/HCPCS: 51702; 99283; A4314

== ENCOUNTER → 2025-01-20 | Outpatient (CLI) | payer MEDICARE, BC, OTHER, SELFPAY ==
[2025-01-20 15:37] LABS: Collection Type, Urine Clean Catch; Squamous Epithelial Cell,Urine 0 /hpf (0-5)
[2025-01-20 17:55] LABS: Bacteria,Urine 3+; Bilirubin,Urine Negative (Negative); Blood,Urine 1+ (Negative); Clarity,Urine Turbid (Clear/Hazy); Color,Urine Lt-Yellow (Lt Yel-Yel); Glucose, Urine Negative (Negative); Ketones,Urine Negative (Negative); Leukocyte Esterase,Urine Positive (Negative); Nitrite,Urine Positive (Negative); PH,Urine 6.5 (5.0-7.0); Protein,Urine Trace (Neg - Trace); RBC,Urine 10 /hpf (0-3); Specific Gravity,Urine 1.011 (1.001-1.035); Urobilinogen,Urine Negative mg/dL (0.0-1.0); WBC,Urine 171 /hpf (0-5)
== END | disposition home or self-care (01) ==
LOC: SLDO 15:26
PROVIDERS: PCP Family Medicine; Referring Provider Family Medicine; Visit Provider Family Medicine
DX: N39.0 Urinary tract infection, site not specified (principal)
CPT/HCPCS: 81001; 87077; 87086; 87186

== ENCOUNTER → 2025-01-29 | Outpatient (CLI) | payer MEDICARE, BC, OTHER, SELFPAY ==
[2025-01-29 14:41] LABS: Collection Type, Urine Clean Catch
[2025-01-29 15:38] LABS: Bacteria,Urine Rare; Bilirubin,Urine Negative (Negative); Blood,Urine Negative (Negative); Calcium Oxalate Crystals,Urine Rare; Clarity,Urine Clear (Clear/Hazy); Color,Urine Lt-Yellow (Lt Yel-Yel); Glucose, Urine Negative (Negative); Ketones,Urine Negative (Negative); Leukocyte Esterase,Urine Positive (Negative); Nitrite,Urine Positive (Negative); PH,Urine 6.0 (5.0-7.0); Protein,Urine Trace (Neg - Trace); RBC,Urine 9 /hpf (0-3); Specific Gravity,Urine 1.020 (1.001-1.035); Squamous Epithelial Cell,Urine < 1 /hpf (0-5); Urobilinogen,Urine Negative mg/dL (0.0-1.0); WBC,Urine 28 /hpf (0-5)
== END | disposition home or self-care (01) ==
LOC: SLDO 14:25
PROVIDERS: Referring Provider Family Medicine; Visit Provider Family Medicine
DX: N39.0 Urinary tract infection, site not specified (principal)
CPT/HCPCS: 81001; 87077; 87086; 87186

== ENCOUNTER 2025-01-30 21:26 | Emergency (ER) | payer MEDICARE, BC, OTHER, SELFPAY ==
[2025-01-30 21:27] VITALS: BMI 29.8
--- NOTE | 2025-01-30 21:51 | PC.NURSE ---
NO ANSWER AT ER LOBBY OR OUTSIDE ER TO BE PUT TO ROOM.
--- NOTE | 2025-01-30 21:51 | PC.NURSE ---
PER SECURITY PATIENT LEFT THE HOSPITAL IN THERE CAR. PROVIDER NOTIFIED.
--- NOTE | 2025-01-30 21:57 | PD.EDADDENDU ---
Emergency Room Addendum Addendum Narrative: When I looked for the patient to start my evaluation, I was told the patient eloped. Pacheco Carr MD
== END 2025-01-30 21:56 | disposition left against medical advice (07) ==
LOC: SERX 21:57
PROVIDERS: Emergency Provider Emergency Medicine
DX: Z53.21 Procedure and treatment not carried out due to patient leaving prior to being seen by health care provider (principal)
CPT/HCPCS: 99282

== ENCOUNTER 2025-02-06 15:50 | Emergency (ER) | payer MEDICARE, BC, OTHER, SELFPAY ==
[2025-02-06 15:58] VITALS: BP 165/79; PULSE 62; RESP 18; TEMP 36.8; O2SAT 96
--- NOTE | 2025-02-06 16:18 | EKG_ITS ---
[facility] Test Date: 2025-02-06 Pat Name: ILEANA OROZCO Department: Room: - Gender: Male Coverer: : 1940 Requested By: Mireya Lorenzo Order Number: [id number] Reading MD: Mireya Lorenzo Measurements Intervals [place] Rate: 59 P: 100 [place]: 224 QRS: -9 QRSD: 96 T: 49 QT: 401 QTc: 399 Interpretive Statements SINUS BRADYCARDIA WITH FIRST DEGREE AV BLOCK NONSPECIFIC T-WAVE ABNORMALITY Compared to ECG 12/18/2024 11:44:56 First degree AV block now present Sinus rhythm no longer present T-wave abnormality still present /store/S0/[id number].pdf
--- NOTE | 2025-02-06 16:18 | XR_ITS ---
Examination: AP chest single view. TECHNIQUE: AP portable semiupright chest single view. Date and time: February 06, 2025, 1810 hours, comparison December 18, 2024. INDICATIONS: Weakness or cement today. FINDINGS: Mild prominence left ventricle Ectatic and enlarged thoracic aorta. No lobar pneumonia or pulmonary edema. Prominent osteopenia. IMPRESSION: No lobar pneumonia or pulmonary edema.
--- NOTE | 2025-02-06 16:19 | PD.EDADULT ---
ED General RME/HPI General Chief complaint: Weakness Stated complaint: WEAKNESS Time Seen by Provider: 02/06/25 16:06 Arrival date/time: 02/06/25 15:50 RME / HPI RME / HPI narrative: 84-year-old male patient with significant history of hypertension, came in for evaluation regarding generalized body weakness. Onset of symptoms since early this morning. Severity of symptoms moderate. Patient is currently taking Cipro and Bactrim for UTI. No fever no complaints at this time. Patient came with EMS from home Related Data Home Medications ?Medication ?Instructions ?Recorded ?Confirmed cyanocobalamin (vitamin B-12) 500 1,000 mcg PO QDAY 08/30/21 07/14/24 mcg tablet folic acid 1 mg tablet 1 mg PO QDAY 08/30/21 07/14/24 levothyroxine 50 mcg tablet 50 mcg PO QDAY 08/30/21 07/14/24 amlodipine 5 mg tablet 5 mg PO QMORNING 06/05/24 07/14/24 Held on 07/15/24. Instructions: untill see PCP donepezil 5 mg tablet 5 mg 1XD 07/14/24 07/14/24 nitrofurantoin macrocrystal 50 mg 50 mg 1XD 07/14/24 07/14/24 capsule Held on 07/15/24. Instructions: Resume on 07/18/24. Hold for 2 days until you complete ciprofloxacin for 2 days. potassium chloride 8 mEq 8 meq 1XD 07/14/24 07/14/24 capsule,extended release tamsulosin 0.4 mg capsule 0.4 mg PO 1XD 07/14/24 07/14/24 Previous Rx's ?Medication ?Instructions ?Recorded apixaban 5 mg (74 tabs) tablets in 5 mg PO BID #74 tabs 06/10/24 a dose pack (WellcoinquPassbox DVT-PE Treat 30D Start) atorvastatin 40 mg tablet 40 mg PO HS #30 tabs 06/10/24 furosemide 20 mg tablet (Lasix) 20 mg PO QDAY #30 tabs 06/10/24 hydralazine 25 mg tablet 25 mg PO BID #30 tabs 06/10/24 ciprofloxacin HCl 500 mg tablet 500 mg PO BID #5 tabs 07/15/24 ciprofloxacin HCl 500 mg tablet 500 mg PO BID #10 tabs 01/23/25 Allergies Allergy/AdvReac Type Severity Reaction Status Date / Time horseradish Allergy Severe Anaphylaxis Verified 01/30/25 21:31 amlodipine Allergy Hypotension Verified 01/30/25 21:31 carvedilol (From Coreg) Allergy LOW HEART Verified 01/30/25 21:31 RATE phytonadione (vitamin K1) AdvReac Severe SEVERE Verified 01/30/25 21:31 BLEEDING warfarin AdvReac Severe SEVERE Verified 01/30/25 21:31 BLEEDING Review of Systems Review of Systems Narrative Review of Systems: Review of system reviewed and within normal limits except mentioned in HPI ED Exam Narrative Physical exam: VITAL SIGNS: Reviewed. GENERAL APPEARANCE: Alert and interactive, follows commands, no acute distress, HEAD AND FACE: Non-traumatic. ENT: PERRL, pale conjunctiva, eyelid no trauma, Mucous membrane moist. NECK: Supple, nontender, no nuchal rigidity. CHEST: No tenderness, no crepitus, no paradoxical movement, no retractions. LUNGS: Clear, well ventilated, symmetric, no rales, no wheezing, no ronchi, no stridor, good breath sounds bilaterally. HEART: Regular rate, regular rhythm, no murmur, no gallops. ABDOMEN: Soft, positive bowel sounds, nondistended, no guarding, nontender, no rebound, no masses, RECTAL: Deferred. GENITAL: Gallagher catheter intact, draining clear urine NEUROLOGICAL: Gross motor function intact sensory function intact, Appropriate for age. MUSCULOSKELETAL: low back nontender, full range of motion. EXTREMITIES: Nontender, full range of motion. SKIN: Color pale, dry, no rash, no lacerations, no abrasions, no contusions. LYMPHATICS: Deferred. Course Quality Measures none Orders Category Date Time Status EKG (ED ONLY) *Do not use* NOW Care 02/06/25 16:19 Completed Urinary Catheter QS Care 02/06/25 17:56 Active Urinary Catheter, Remove ONCE Care 02/06/25 17:56 Active EKG (ED Only) Stat Exams 02/06/25 16:18 Draft XR chest 1V Stat Exams 02/06/25 16:18 Completed B-Type Natriuretic Peptide Stat Lab 02/06/25 16:29 Completed CBC Stat Lab 02/06/25 16:29 Completed Comprehensive Metabolic Panel Stat Lab 02/06/25 16:29 Completed Partial Thromboplastin Time Stat Lab 02/06/25 16:29 Completed Troponin I Stat Lab 02/06/25 16:29 Completed Urinalysis Stat Lab 02/06/25 18:31 Completed Urinalysis, C/S if Indicated Stat Lab 02/06/25 18:31 Completed Urine Culture Stat Lab 02/06/25 18:31 Received Ringers Lactated 1000 ml [Lactated Ringers] 1,000 ml Med 02/06/25 17:47 Discontinued IV 999 mls/hr Vital Signs Vital signs: Vital Signs Temperature 98.2 F 02/06/25 15:58 Pulse Rate 62 02/06/25 15:58 Respiratory Rate 18 02/06/25 15:58 Blood Pressure 165/79 H 02/06/25 15:58 Pulse Oximetry (%) 96 02/06/25 15:58 Oxygen Delivery Method Room Air 02/06/25 15:58 Discharge Plan Plan Patient Disposition: HOME (Self Care) Discharge Disposition comment: Stable Prescriptions/Referrals Prescriptions/Med Rec: No Action cyanocobalamin (vitamin B-12) 500 mcg Tablet 1,000 mcg PO QDAY levothyroxine 50 mcg Tablet 50 mcg PO QDAY folic acid 1 mg Tablet 1 mg PO QDAY amlodipine 5 mg tablet 5 mg PO QMORNING Eliquis DVT-PE Treat 30D Start 5 mg (74 tabs) tablets,dose pack 5 mg PO BID Qty: 74 0RF hydralazine 25 mg tablet 25 mg PO BID Qty: 30 0RF atorvastatin 40 mg tablet 40 mg PO HS Qty: 30 0RF furosemide [Lasix] 20 mg tablet 20 mg PO QDAY Qty: 30 0RF tamsulosin 0.4 mg capsule 0.4 mg PO 1XD nitrofurantoin macrocrystal 50 mg capsule 50 mg 1XD Patient Comments: TAKE 1 CAPSULE BY MOUTH NIGHTLY AT BEDTIME donepezil 5 mg tablet 5 mg 1XD Patient Comments: TAKE 1 TABLET BY MOUTH EVERY DAY AT BEDTIME FOR 90 DAYS potassium chloride 8 mEq capsule, extended release 8 meq 1XD Patient Comments: TAKE 1 CAPSULE BY MOUTH EVERY DAY ciprofloxacin HCl 500 mg tablet 500 mg PO BID Qty: 5 0RF ciprofloxacin HCl 500 mg tablet 500 mg PO BID Qty: 10 0RF Referrals: Mary Kate Valladares MD [Primary Care Provider] - In 1 week Problem List Clinical Impression: Weakness generalized, UTI (urinary tract infection), Anemia Patient/Caregiver Discharge Instructions Discharge Activity: activity as tolerated Education Materials: ED Weakness (Uncertain Cause) Additional Instructions: Thank you for the opportunity for serving you today. You are stable for discharged . You are advised to: Follow-up with your PCP in 1 to 2 days Return to ED for worsening of symptoms Increase oral fluids Take medication as prescribed by your PCP, Print Language: Syriac Stand Alone Forms: Faby Award Info., Patient Portal Info Letter PIEDAD/EDI Supervising Physician AARON Supervising Physician: MD Alonzo [facility] Narrative MDM hospital course: 84-year-old male patient with significant history of hypertension, came in for evaluation regarding generalized body weakness. Onset of symptoms since early this morning. Severity of symptoms moderate. Patient is currently taking Cipro and Bactrim for UTI. No fever no complaints at this time. Patient came with EMS from home Patient EKG showed sinus bradycardia, ventricular rate of 59 bpm, no ST segment elevation or depression noted. Patient's laboratory workup is significant for hemoglobin of 8.4, hematocrit of 29.8, patient's last hemoglobin was also noted to be on the mid 8's. Creatinine was noted to be 1.8. Patient received 1 L of IV fluids. Patient was advised to continue taking the Bactrim that was prescribed by PCP few days ago. Urinalysis positive for UTI. I personally reviewed and interpreted the x-ray of this patient. There is no acute abnormalities found, no infiltrates no pneumothorax no hemothorax normal chest x-ray. Review of other structures was without significant abnormal findings also. I additionally reviewed the radiologist report and agree with the interpretation. Medication Administration(s) Medication Administration History Discontinued Medications Lactated Ringer's (Lactated Ringers) 1,000 mls @ 999 mls/hr IV .Q1H1M ONE Stop: 02/06/25 18:47 Last Admin: 02/06/25 19:54 Dose: 999 mls/hr Documented By: CVL
[2025-02-06 16:49] LABS: Basophils # (Auto) 0.0 Thou/mm3 (0.0-0.2); Basophils % (Auto) 1 % (0-2.5); Eosinophils # (Auto) 0.1 Thou/mm3 (0.0-0.5); Eosinophils % (Auto) 1 % (0-10); Hematocrit 29.8 % (41.0-53.0); Immature Granulocytes Auto 0.03 Thou/mm3 (0.00-0.00); Lymphocytes # (Auto) 0.9 Thou/mm3 (1.0-4.8); Lymphocytes % (Auto) 15 % (10-50); Mean Corpuscular HGB Conc 28.2 g/dl (31.0-37.0); Mean Corpuscular Hemoglobin 20.4 pg (25.0-35.0); Mean Corpuscular Volume 73 fL (80-100); Monocytes # (Auto) 0.5 Thou/mm3 (0.0-0.8); Monocytes % (Auto) 8 % (0-12); Neutrophils # (Auto) 4.6 Thou/mm3 (1.8-7.7); Neutrophils % (Auto) 75 % (37-80); Nucleated Red Blood Cell # 0.00 Thou/mm3 (0.00-0.00); Nucleated Red Blood Cell % 0 /100 WBC (0); Platelet Count 225 Thou/mm3 (140-440); RDW Standard Deviation 51.0 fL (35.1-43.9); Red Blood Count 4.11 Miln/mm3 (4.50-5.90); White Blood Count 6.2 Thou/mm3 (3.8-10.6)
[2025-02-06 16:54] LABS: Hemoglobin 8.4 g/dL (13.5-16.0)
[2025-02-06 16:56] LABS: B-Type Natriuretic Peptide 46 pg/mL (0-100); Partial Thromboplastin Time 30.3 Seconds (22.0-36.0)
[2025-02-06 16:58] LABS: Alanine Aminotransferase 24 U/L (10-49); Albumin, Serum 4.1 gm/dL (3.4-4.8); Albumin/Globulin Ratio 1.6 (1.2-2.2); Alkaline Phosphatase 73 U/L (46-116); Anion Gap 8 (7-16); Aspartate Amino Transferase 23 U/L (0-34); BUN/Creatinine Ratio 9 Ratio (12-20); Bilirubin,Total 0.4 mg/dL (0.3-1.2); Blood Urea Nitrogen 17 mg/dL (9-23); Calcium 9.0 mg/dL (8.3-10.6); Calcium (Corrected) 9.0 mg/dL (8.5-10.1); Carbon Dioxide 25.4 mMol/L (20.0-31.0); Chloride 105 mMol/L (98-107); Creatinine (Component) 1.8 mg/dL (0.6-1.3); Globulin 2.5 gm/dL (2.3-3.5); Glucose 92 mg/dL (74-106); Osmolality,Calculated 277 (275-295); Potassium 4.2 mMol/L (3.4-5.1); Sodium 138 mMol/L (136-145); Total Protein 6.6 gm/dL (5.7-8.2); Troponin I < 0.020 ng/mL (0.0-0.045); eGFR 36 See Note
[2025-02-06 17:12] VITALS: PULSE 58; RESP 18; O2SAT 89
[2025-02-06 17:20] VITALS: BP 161/69; PULSE 59; RESP 19; O2SAT 96
[2025-02-06 17:45] VITALS: BMI 29.8
[2025-02-06 17:51] VITALS: BP 159/88; PULSE 59; RESP 18; TEMP 36.7; O2SAT 95
[2025-02-06 18:42] LABS: Collection Type, Urine Catheter
[2025-02-06 18:51] LABS: Bacteria,Urine Rare; Bilirubin,Urine Negative (Negative); Blood,Urine 2+ (Negative); Clarity,Urine Clear (Clear/Hazy); Color,Urine Colorless (Lt Yel-Yel); Culture Indicated,Urine Yes; Glucose, Urine Negative (Negative); Ketones,Urine Negative (Negative); Leukocyte Esterase,Urine Positive (Negative); Nitrite,Urine Negative (Negative); PH,Urine 5.5 (5.0-7.0); Protein,Urine Negative (Neg - Trace); RBC,Urine 11 /hpf (0-3); Specific Gravity,Urine 1.004 (1.001-1.035); Squamous Epithelial Cell,Urine 3 /hpf (0-5); Urobilinogen,Urine Negative mg/dL (0.0-1.0); WBC,Urine 17 /hpf (0-5)
[2025-02-06] MEDS: RINGERS LACTATED 1000 ML 1,000 ML 999 ML IV (19:54)
[2025-02-06 21:02] VITALS: BP 158/72; PULSE 84; RESP 19
== END 2025-02-06 21:03 | disposition home or self-care (01) ==
PROVIDERS: Nurse Practitioner Family; Emergency Provider Family Medicine; PCP Family Medicine
DX: N39.0 Urinary tract infection, site not specified (principal); R53.1 Weakness; D64.9 Anemia, unspecified; I10 Essential (primary) hypertension
CPT/HCPCS: 51702; 36415; 71045; 80053; 81001; 83880; 84484; 85025; 85730; 87086; 93005; 99283; A4314; J7120

== ENCOUNTER → 2025-02-21 | Outpatient (CLI) | payer MEDICARE, BC, OTHER, SELFPAY | END | disposition home or self-care (01) | LOC: SLDO 15:12 | PROVIDERS: PCP Family Medicine; Referring Provider Family Medicine; Visit Provider Family Medicine | DX: N39.0 Urinary tract infection, site not specified (principal) | CPT/HCPCS: 87077; 87086; 87186 ==

== ENCOUNTER → 2025-03-05 | Outpatient (CLI) | payer MEDICARE, BC, OTHER, SELFPAY ==
[2025-03-05 13:58] LABS: Collection Type, Urine Clean Catch
[2025-03-05 14:39] LABS: Bilirubin,Urine Negative (Negative); Blood,Urine Negative (Negative); Clarity,Urine Clear (Clear/Hazy); Color,Urine Lt-Yellow (Lt Yel-Yel); Glucose, Urine Negative (Negative); Ketones,Urine Negative (Negative); Leukocyte Esterase,Urine Positive (Negative); Nitrite,Urine Positive (Negative); PH,Urine 7.0 (5.0-7.0); Protein,Urine Negative (Neg - Trace); RBC,Urine 4 /hpf (0-3); Specific Gravity,Urine 1.016 (1.001-1.035); Squamous Epithelial Cell,Urine < 1 /hpf (0-5); Urobilinogen,Urine Negative mg/dL (0.0-1.0); WBC,Urine 5 /hpf (0-5)
== END | disposition home or self-care (01) ==
LOC: SLDO 13:53
PROVIDERS: Referring Provider Family Medicine; Visit Provider Family Medicine
DX: N39.0 Urinary tract infection, site not specified (principal)
CPT/HCPCS: 81001; 87077; 87086; 87186

== ENCOUNTER → 2025-03-18 | Outpatient (CLI) | payer MEDICARE, BC, OTHER, SELFPAY ==
[2025-03-18 15:28] LABS: Collection Type, Urine Clean Catch
[2025-03-18 16:58] LABS: Bilirubin,Urine Negative (Negative); Blood,Urine Negative (Negative); Clarity,Urine Clear (Clear/Hazy); Color,Urine Lt-Yellow (Lt Yel-Yel); Glucose, Urine Negative (Negative); Ketones,Urine Negative (Negative); Leukocyte Esterase,Urine Positive (Negative); Nitrite,Urine Positive (Negative); PH,Urine 6.5 (5.0-7.0); Protein,Urine Trace (Neg - Trace); RBC,Urine 18 /hpf (0-3); Specific Gravity,Urine 1.019 (1.001-1.035); Squamous Epithelial Cell,Urine < 1 /hpf (0-5); Urobilinogen,Urine Negative mg/dL (0.0-1.0); WBC,Urine 65 /hpf (0-5)
== END | disposition home or self-care (01) ==
LOC: SLDO 15:11
PROVIDERS: PCP Family Medicine; Referring Provider Family Medicine; Visit Provider Family Medicine
DX: N39.0 Urinary tract infection, site not specified (principal)
CPT/HCPCS: 81001; 87077; 87086; 87186

== ENCOUNTER → 2025-04-02 | Outpatient (CLI) | payer MEDICARE, BC, OTHER, SELFPAY ==
[2025-04-02 15:00] LABS: Collection Type, Urine Clean Catch; Squamous Epithelial Cell,Urine 0 /hpf (0-5)
[2025-04-02 16:32] LABS: Bilirubin,Urine Negative (Negative); Blood,Urine Negative (Negative); Clarity,Urine Clear (Clear/Hazy); Color,Urine Yellow (Lt Yel-Yel); Glucose, Urine Negative (Negative); Ketones,Urine Negative (Negative); Leukocyte Esterase,Urine Positive (Negative); Nitrite,Urine Negative (Negative); PH,Urine 6.0 (5.0-7.0); Protein,Urine 1+ (Neg - Trace); RBC,Urine 4 /hpf (0-3); Specific Gravity,Urine 1.025 (1.001-1.035); Urobilinogen,Urine 2.0 mg/dL (0.0-1.0); WBC,Urine 91 /hpf (0-5)
== END | disposition home or self-care (01) ==
LOC: SLDO 14:38
PROVIDERS: PCP Family Medicine; Referring Provider Family Medicine; Visit Provider Family Medicine
DX: N39.0 Urinary tract infection, site not specified (principal)
CPT/HCPCS: 81001; 87077; 87086; 87186

== ENCOUNTER → 2025-04-30 | Outpatient (CLI) | payer MEDICARE, BC, OTHER, SELFPAY ==
[2025-04-30 14:01] LABS: Collection Type, Urine Clean Catch; Squamous Epithelial Cell,Urine 0 /hpf (0-5)
[2025-04-30 15:24] LABS: Bacteria,Urine Rare; Bilirubin,Urine Negative (Negative); Blood,Urine Negative (Negative); Clarity,Urine Clear (Clear/Hazy); Color,Urine Lt-Yellow (Lt Yel-Yel); Glucose, Urine Negative (Negative); Ketones,Urine Negative (Negative); Leukocyte Esterase,Urine Positive (Negative); Nitrite,Urine Positive (Negative); PH,Urine 6.5 (5.0-7.0); Protein,Urine Trace (Neg - Trace); RBC,Urine 3 /hpf (0-3); Specific Gravity,Urine 1.015 (1.001-1.035); Urobilinogen,Urine Negative mg/dL (0.0-1.0); WBC,Urine 27 /hpf (0-5)
== END | disposition home or self-care (01) ==
LOC: SLDO 13:56
PROVIDERS: Referring Provider Family Medicine; Visit Provider Family Medicine
DX: N39.0 Urinary tract infection, site not specified (principal)
CPT/HCPCS: 81001; 87077; 87086; 87186

== ENCOUNTER 2025-05-15 11:14 | Emergency (ER) | payer MEDICARE, BC, OTHER, SELFPAY ==
[2025-05-15 11:15] VITALS: BMI 31.1
[2025-05-15 11:46] VITALS: BP 167/78; PULSE 58; RESP 18; TEMP 36.6; O2SAT 97
--- NOTE | 2025-05-15 12:14 | PD.EDMALE ---
ED Male Genitalurinary RME/HPI General Chief complaint: Urogenital-Male Stated complaint: URINARY NEEDS TO CHANGE Time Seen by Provider: 05/15/25 11:48 Arrival date/time: 05/15/25 11:14 84-year-old male presents to the emergency department today with son-in-law requesting Gallagher catheter changed per the son-in-law the patient's had a catheter for approximately 1 year and is only here to have the catheter changed no other requests Limitations: no limitations Related Data Home Medications ?Medication ?Instructions ?Recorded ?Confirmed cyanocobalamin (vitamin B-12) 500 1,000 mcg PO QDAY 08/30/21 07/14/24 mcg tablet folic acid 1 mg tablet 1 mg PO QDAY 08/30/21 07/14/24 levothyroxine 50 mcg tablet 50 mcg PO QDAY 08/30/21 07/14/24 amlodipine 5 mg tablet 5 mg PO QMORNING 06/05/24 07/14/24 Held on 07/15/24. Instructions: untill see PCP donepezil 5 mg tablet 5 mg 1XD 07/14/24 07/14/24 nitrofurantoin macrocrystal 50 mg 50 mg 1XD 07/14/24 07/14/24 capsule Held on 07/15/24. Instructions: Resume on 07/18/24. Hold for 2 days until you complete ciprofloxacin for 2 days. potassium chloride 8 mEq 8 meq 1XD 07/14/24 07/14/24 capsule,extended release tamsulosin 0.4 mg capsule 0.4 mg PO 1XD 07/14/24 07/14/24 Previous Rx's ?Medication ?Instructions ?Recorded apixaban 5 mg (74 tabs) tablets in 5 mg PO BID #74 tabs 06/10/24 a dose pack (Eliquis DVT-PE Treat 30D Start) atorvastatin 40 mg tablet 40 mg PO HS #30 tabs 06/10/24 furosemide 20 mg tablet (Lasix) 20 mg PO QDAY #30 tabs 06/10/24 hydralazine 25 mg tablet 25 mg PO BID #30 tabs 06/10/24 ciprofloxacin HCl 500 mg tablet 500 mg PO BID #5 tabs 07/15/24 ciprofloxacin HCl 500 mg tablet 500 mg PO BID #10 tabs 07/18/24 Allergies Allergy/AdvReac Type Severity Reaction Status Date / Time horseradish Allergy Severe Anaphylaxis Verified 05/15/25 11:17 amlodipine Allergy Hypotension Verified 05/15/25 11:17 carvedilol (From Coreg) Allergy LOW HEART Verified 05/15/25 11:17 RATE phytonadione (vitamin K1) AdvReac Severe SEVERE Verified 05/15/25 11:17 BLEEDING warfarin AdvReac Severe SEVERE Verified 05/15/25 11:17 BLEEDING Review of Systems Review of Systems Systems Reviewed: All systems reviewed, normal except as documented Constitutional Constitutional: Reports system reviewed and no additional complaints, except as documented, Denies fever(s) and Denies headache(s) Eyes Eyes: Reports system reviewed and no additional complaints, except as documented and Denies blurry vision ENT Ears, Nose, Mouth, and Throat: Reports system reviewed and no additional complaints, except as documented, Denies headache(s), Denies nasal congestion and Denies nasal discharge Cardiovascular Cardiovascular: Reports system reviewed and no additional complaints, except as documented, Denies chest pain and Denies dyspnea Respiratory Respiratory: Reports system reviewed and no additional complaints, except as documented, Denies chest congestion, Denies cough and Denies dyspnea Gastrointestinal Gastrointestinal: Reports system reviewed and no additional complaints, except as documented and Denies abdominal pain Genitourinary Genitourinary: Reports system reviewed and no additional complaints, except as documented and Reports other (Gallagher catheter in place) Integumentary/Breasts Skin/Breast: Reports system reviewed and no additional complaints, except as documented and Denies rash Neurologic Neurologic: Reports system reviewed and no additional complaints, except as documented, Reports as per HPI and Denies headache(s) Past Medical History Past Medical History NEUROLOGIC: Positive Neurological Disorders, Cerebrovascular Accident and Dementia CARDIAC: Positive Cardiac Disorders, Atrial Fibrillation, Hypercholesterolemia, Deep Vein Thrombosis and Hypertension; Negative Congestive Heart Failure RESPIRATORY: Negative Chronic Obstructive Pulmonary Disease (COPD) or Asthma GASTROINTESTINAL: Positive Gastrointestinal Disorders, Gall Bladder Disease and Gastrointestinal Bleed GENITOURINARY: Positive Genitourinary Disorders, Neurogenic Bladder and Benign Prostatic Hyperplasia; Negative Renal Disease, Kidney Stones, Polycystic Kidney Disease, Inguinal Hernia or Dialysis MUSCULOSKELETAL: Positive Musculoskeletal Disorders and Degenerative Disk Disease ENT: Positive Cataracts ENDOCRINE: Positive Endocrine Disorders and Hypothyroidism; Negative Diabetes Mellitus Type 1 or Diabetes Mellitus Type 2 HEMATOLOGIC: Negative Blood Disorders, Anemia, Leukemia, Hemophilia, Thalassemia, Sickle Cell Disease or Clotting Problems OTHER HISTORY: Negative Hospitalization, Autoimmune Disease, Down Syndrome, Developmental Delay, Shingles, Falls, Blood Transfusions, Anesthesia Reactions, Organ Transplant or Cancer Surgical History SURGICAL: Positive Gastric Bypass Surgery; Negative Organ Transplant Social History SMOKING STATUS: Never smoker SUBSTANCE USE: does not use ED Exam General Limitations: Present no limitations General appearance: Present alert and in no apparent distress Head Head exam: Present atraumatic Eye Eye exam: Present normal appearance, PERRL and EOMI ENT ENT exam: Present normal exam, normal oropharynx and mucous membranes moist Neck Neck exam: Present normal inspection, full ROM and trachea midline Chest Chest inspection: Present normal inspection and symmetric chest wall rise Respiratory Respiratory exam: Present normal lung sounds bilaterally Cardiovascular Cardiovascular exam: Present regular rate, normal rhythm and normal heart sounds Abdominal Exam Abdominal exam: Present soft and normal bowel sounds Extremities Exam Extremities exam: Present normal inspection and full ROM Back Exam Back exam: Present normal inspection and full ROM Neurological Exam Neurological exam: Present alert, oriented X3 and CN II-XII intact Psychiatric Psychiatric exam: Present normal affect and normal mood Skin Skin exam: Present warm, dry, intact and normal color Course Quality Measures none Orders Category Date Time Status Gallagher [Urinary Catheter] NOW Care 05/15/25 11:48 Completed Gallagher to Leg Bag Routine Care 05/15/25 11:48 Ordered Vital Signs Vital signs: Vital Signs Temperature 97.9 F 05/15/25 11:46 Pulse Rate 58 L 05/15/25 11:46 Respiratory Rate 18 05/15/25 11:46 Blood Pressure 167/78 H 05/15/25 11:46 Pulse Oximetry (%) 97 05/15/25 11:46 Oxygen Delivery Method Room Air 05/15/25 11:46 O2 saturation 97% room air within normal limits Urogenital - Male MDM Narrative MDM Narrative:: 84-year-old male presents to the emergency department today with son-in-law requesting Gallagher catheter changed per the son-in-law the patient's had a catheter for approximately 1 year and is only here to have the catheter changed no other requests Patient data External records reviewed:: [facility] previous records Clinical information provided by:: patient Social determinants that could affect healthcare access:: none Patient has the following chronic illnesses:: See history How is presenting disease/condition affected by chronic disease/condition?: caused by Evaluation data The following diagnostics were reviewed and interpreted by me:: other (specify) (N/A) Lab and/or radiology exams considered but not ordered:: Considered not ordered Interpretation Summary: N/A Medications / Prescriptions Medications or Prescriptions considered but not ordered:: Given Medication administrations:: Given Consultations Consultation(s) initiated? (list below): No Diagnosis Urogenital Male Differential Diagnosis: urinary tract infection Most likely diagnosis given after review of the tests above:: Dysuria Admission Indicated Admission indicated?: not indicated Admission Request Was there a request for admission?: No Disposition Plan Disposition Plan: Discharge Discharge Attestation Discharge Attestation: The patient and all family members were given an opportunity to ask questions and understood the discharge instructions. Discharge instructions specifically effects, indications for sooner follow up or return to the emergency department, and the expected course of current diagnosis. Patient condition: Stable Discharge Plan Plan Patient Disposition: HOME (Self Care) Discharge Disposition comment: Stable Prescriptions/Referrals Prescriptions/Med Rec: No Action cyanocobalamin (vitamin B-12) 500 mcg Tablet 1,000 mcg PO QDAY levothyroxine 50 mcg Tablet 50 mcg PO QDAY folic acid 1 mg Tablet 1 mg PO QDAY amlodipine 5 mg tablet 5 mg PO QMORNING Eliquis DVT-PE Treat 30D Start 5 mg (74 tabs) tablets,dose pack 5 mg PO BID Qty: 74 0RF hydralazine 25 mg tablet 25 mg PO BID Qty: 30 0RF atorvastatin 40 mg tablet 40 mg PO HS Qty: 30 0RF furosemide [Lasix] 20 mg tablet 20 mg PO QDAY Qty: 30 0RF tamsulosin 0.4 mg capsule 0.4 mg PO 1XD nitrofurantoin macrocrystal 50 mg capsule 50 mg 1XD Patient Comments: TAKE 1 CAPSULE BY MOUTH NIGHTLY AT BEDTIME donepezil 5 mg tablet 5 mg 1XD Patient Comments: TAKE 1 TABLET BY MOUTH EVERY DAY AT BEDTIME FOR 90 DAYS potassium chloride 8 mEq capsule, extended release 8 meq 1XD Patient Comments: TAKE 1 CAPSULE BY MOUTH EVERY DAY ciprofloxacin HCl 500 mg tablet 500 mg PO BID Qty: 5 0RF ciprofloxacin HCl 500 mg tablet 500 mg PO BID Qty: 10 0RF Problem List Clinical Impression: Encounter for Gallagher catheter replacement Patient/Caregiver Discharge Instructions Additional Instructions: Please follow up with your primary care doctor in the next 24-48hrs for any worsening symptoms return here immediately Print Language: Norwegian Stand Alone Forms: Faby Award Info., Patient Portal Info Letter PA/SUPERVISOR AREA Supervising Physician PA/SUPERVISOR AREA Supervising Physician: dr sethi
== END 2025-05-15 13:16 | disposition home or self-care (01) ==
PROVIDERS: Emergency Provider Nurse Practitioner Primary Care; PCP Family Medicine
DX: Z46.6 Encounter for fitting and adjustment of urinary device (principal)
CPT/HCPCS: 51702; 99282; A4314

== ENCOUNTER → 2025-05-21 | Outpatient (CLI) | payer MEDICARE, BC, OTHER, SELFPAY ==
[2025-05-21 14:05] LABS: Collection Type, Urine Clean Catch; Squamous Epithelial Cell,Urine 0 /hpf (0-5)
[2025-05-21 16:03] LABS: Amorphous Crystals,Urine Present (Absent); Bacteria,Urine Rare; Bilirubin,Urine Negative (Negative); Blood,Urine Negative (Negative); Color,Urine Yellow (Lt Yel-Yel); Glucose, Urine Negative (Negative); Ketones,Urine Negative (Negative); Leukocyte Esterase,Urine Positive (Negative); Nitrite,Urine Positive (Negative); PH,Urine 6.0 (5.0-7.0); Protein,Urine Trace (Neg - Trace); RBC,Urine 13 /hpf (0-3); Specific Gravity,Urine 1.018 (1.001-1.035); Urobilinogen,Urine Negative mg/dL (0.0-1.0); WBC,Urine 114 /hpf (0-5)
[2025-05-21 16:22] LABS: Clarity,Urine Hazy (Clear/Hazy)
== END | disposition home or self-care (01) ==
LOC: SLDO 13:56
PROVIDERS: Referring Provider Registered Nurse; Visit Provider Registered Nurse
DX: N39.0 Urinary tract infection, site not specified (principal)
CPT/HCPCS: 81001; 87077; 87086; 87186

== ENCOUNTER → 2025-06-02 | Outpatient (CLI) | payer MEDICARE, BC, OTHER, SELFPAY ==
[2025-06-02 14:55] LABS: Collection Type, Urine Clean Catch
[2025-06-02 18:24] LABS: Amorphous Crystals,Urine Present (Absent); Bacteria,Urine Rare; Bilirubin,Urine Negative (Negative); Blood,Urine Negative (Negative); Clarity,Urine Turbid (Clear/Hazy); Color,Urine Yellow (Lt Yel-Yel); Glucose, Urine Negative (Negative); Hyaline Casts,Urine 1 /hpf (0-1); Ketones,Urine Negative (Negative); Leukocyte Esterase,Urine Positive (Negative); Nitrite,Urine Negative (Negative); PH,Urine 6.0 (5.0-7.0); Protein,Urine Trace (Neg - Trace); RBC,Urine 7 /hpf (0-3); Specific Gravity,Urine 1.018 (1.001-1.035); Squamous Epithelial Cell,Urine 1 /hpf (0-5); Urobilinogen,Urine Negative mg/dL (0.0-1.0); WBC,Urine 125 /hpf (0-5)
== END | disposition home or self-care (01) ==
LOC: SLDO 14:30
PROVIDERS: PCP Family Medicine; Referring Provider Family Medicine; Visit Provider Family Medicine
DX: N39.0 Urinary tract infection, site not specified (principal)
CPT/HCPCS: 81001; 87077; 87086; 87186

== ENCOUNTER 2025-06-23 11:14 | Emergency (ER) | payer MEDICARE, BC, OTHER, SELFPAY ==
[2025-06-23 11:32] VITALS: BP 130/65; PULSE 61; RESP 17; TEMP 36.8; O2SAT 98; BMI 31.7
--- NOTE | 2025-06-23 12:29 | PD.EDMALE ---
ED Male Genitalurinary RME/HPI General Chief complaint: Urogenital-Male Stated complaint: FLORES CATH CHANGE Time Seen by Provider: 06/23/25 11:47 Source: patient Arrival date/time: 06/23/25 11:14 84-year-old male with a history of hyperlipidemia, hypertension, BPH, is brought in to the emergency room by his care provider needing his Flores catheter change Mode of arrival: ambulatory Limitations: no limitations Related Data Home Medications ?Medication ?Instructions ?Recorded ?Confirmed cyanocobalamin (vitamin B-12) 500 1,000 mcg PO QDAY 08/30/21 07/14/24 mcg tablet folic acid 1 mg tablet 1 mg PO QDAY 08/30/21 07/14/24 levothyroxine 50 mcg tablet 50 mcg PO QDAY 08/30/21 07/14/24 amlodipine 5 mg tablet 5 mg PO QMORNING 06/05/24 07/14/24 Held on 07/15/24. Instructions: untill see PCP donepezil 5 mg tablet 5 mg 1XD 07/14/24 07/14/24 nitrofurantoin macrocrystal 50 mg 50 mg 1XD 07/14/24 07/14/24 capsule Held on 07/15/24. Instructions: Resume on 07/18/24. Hold for 2 days until you complete ciprofloxacin for 2 days. potassium chloride 8 mEq 8 meq 1XD 07/14/24 07/14/24 capsule,extended release tamsulosin 0.4 mg capsule 0.4 mg PO 1XD 07/14/24 07/14/24 Previous Rx's ?Medication ?Instructions ?Recorded apixaban 5 mg (74 tabs) tablets in 5 mg PO BID #74 tabs 06/10/24 a dose pack (Eliquis DVT-PE Treat 30D Start) atorvastatin 40 mg tablet 40 mg PO HS #30 tabs 06/10/24 furosemide 20 mg tablet (Lasix) 20 mg PO QDAY #30 tabs 06/10/24 hydralazine 25 mg tablet 25 mg PO BID #30 tabs 06/10/24 ciprofloxacin HCl 500 mg tablet 500 mg PO BID #5 tabs 07/15/24 ciprofloxacin HCl 500 mg tablet 500 mg PO BID #10 tabs 07/18/24 Allergies Allergy/AdvReac Type Severity Reaction Status Date / Time horseradish Allergy Severe Anaphylaxis Verified 06/23/25 11:16 amlodipine Allergy Hypotension Verified 06/23/25 11:16 carvedilol (From Coreg) Allergy LOW HEART Verified 06/23/25 11:16 RATE phytonadione (vitamin K1) AdvReac Severe SEVERE Verified 06/23/25 11:16 BLEEDING warfarin AdvReac Severe SEVERE Verified 06/23/25 11:16 BLEEDING Review of Systems Review of Systems Systems Reviewed: All systems reviewed, normal except as documented Constitutional Constitutional: Reports system reviewed and no additional complaints, except as documented, Denies fatigue, Denies fever(s), Denies headache(s) and Denies weakness Eyes Eyes: Reports system reviewed and no additional complaints, except as documented, Denies blurry vision and Denies change in vision ENT Ears, Nose, Mouth, and Throat: Reports system reviewed and no additional complaints, except as documented, Denies otalgia, Denies headache(s), Denies nasal congestion, Denies throat swelling and Denies vertigo Cardiovascular Cardiovascular: Reports system reviewed and no additional complaints, except as documented, Denies chest pain, Denies dyspnea and Denies dyspnea on exertion Respiratory Respiratory: Reports system reviewed and no additional complaints, except as documented, Denies chest congestion, Denies cough, Denies dyspnea, Denies dyspnea on exertion and Denies wheezing Gastrointestinal Gastrointestinal: Reports system reviewed and no additional complaints, except as documented, Denies abdominal pain, Denies cramping, Denies nausea and Denies vomiting Genitourinary Genitourinary: Reports system reviewed and no additional complaints, except as documented, Denies dysuria and Denies hematuria Musculoskeletal Musculoskeletal: Reports system reviewed and no additional complaints, except as documented and Denies back pain Integumentary/Breasts Skin/Breast: Reports system reviewed and no additional complaints, except as documented and Denies wounds Neurologic Neurologic: Reports system reviewed and no additional complaints, except as documented, Denies confusion, Denies headache(s), Denies lack of coordination, Denies vertigo and Denies weakness Psychiatric Psychiatric: Reports system reviewed and no additional complaints, except as documented, Denies anxiety, Denies confusion, Denies depression, Denies paranoia, Denies suicidal ideation and Denies tactile hallucinations Endocrine Endocrine: Reports system reviewed and no additional complaints, except as documented and Denies fatigue Hematologic/Lymphatic Hematologic/Lymphatic: Reports system reviewed and no additional complaints, except as documented and Denies lymphadenopathy Allergic/Immunologic Allergic/Immunologic: Reports system reviewed and no additional complaints, except as documented, Denies throat swelling, Denies urticaria and Denies wheezing Past Medical History Past Medical History NEUROLOGIC: Positive Neurological Disorders, Cerebrovascular Accident and Dementia CARDIAC: Positive Cardiac Disorders, Atrial Fibrillation, Hypercholesterolemia, Deep Vein Thrombosis and Hypertension; Negative Congestive Heart Failure RESPIRATORY: Negative Chronic Obstructive Pulmonary Disease (COPD) or Asthma GASTROINTESTINAL: Positive Gastrointestinal Disorders, Gall Bladder Disease and Gastrointestinal Bleed GENITOURINARY: Positive Genitourinary Disorders, Neurogenic Bladder and Benign Prostatic Hyperplasia; Negative Renal Disease, Kidney Stones, Polycystic Kidney Disease, Inguinal Hernia or Dialysis MUSCULOSKELETAL: Positive Musculoskeletal Disorders and Degenerative Disk Disease ENT: Positive Cataracts ENDOCRINE: Positive Endocrine Disorders and Hypothyroidism; Negative Diabetes Mellitus Type 1 or Diabetes Mellitus Type 2 HEMATOLOGIC: Negative Blood Disorders, Anemia, Leukemia, Hemophilia, Thalassemia, Sickle Cell Disease or Clotting Problems OTHER HISTORY: Negative Hospitalization, Autoimmune Disease, Down Syndrome, Developmental Delay, Shingles, Falls, Blood Transfusions, Anesthesia Reactions, Organ Transplant or Cancer Surgical History SURGICAL: Positive Gastric Bypass Surgery; Negative Organ Transplant Social History SMOKING STATUS: Never smoker SUBSTANCE USE: does not use ED Exam General Limitations: Present no limitations General appearance: Present alert and in no apparent distress Head Head exam: Present atraumatic Eye Eye exam: Present normal appearance, PERRL and EOMI ENT ENT exam: Present normal exam, normal oropharynx and mucous membranes moist Neck Neck exam: Present normal inspection, full ROM and trachea midline Chest Chest inspection: Present normal inspection and symmetric chest wall rise Respiratory Respiratory exam: Present normal lung sounds bilaterally Cardiovascular Cardiovascular exam: Present regular rate, normal rhythm and normal heart sounds Abdominal Exam Abdominal exam: Present soft and normal bowel sounds Extremities Exam Extremities exam: Present normal inspection and full ROM Back Exam Back exam: Present normal inspection and full ROM Neurological Exam Neurological exam: Present alert, oriented X3 and CN II-XII intact Psychiatric Psychiatric exam: Present normal affect and normal mood Skin Skin exam: Present warm, dry, intact and normal color Course Quality Measures none Orders Category Date Time Status Flores [Urinary Catheter, Remove] ONCE Care 06/23/25 11:43 Active Flores [Urinary Catheter] QS Care 06/23/25 11:43 Active Flores to Leg Bag Routine Care 06/23/25 11:43 Ordered Vital Signs Vital signs: Vital Signs Temperature 98.3 F 06/23/25 11:32 Pulse Rate 61 06/23/25 11:32 Respiratory Rate 17 06/23/25 11:32 Blood Pressure 130/65 06/23/25 11:32 Pulse Oximetry (%) 98 06/23/25 11:32 Oxygen Delivery Method Room Air 06/23/25 11:32 Urogenital - Male MDM Narrative MDM Narrative:: 84-year-old male with a history of hyperlipidemia, hypertension, BPH, is brought in to the emergency room by his care provider needing his Flores catheter change Patient is hemodynamically stable and in no apparent distress Patient's Flores catheter was removed and replaced with no complications Patient denies any dysuria hematuria Patient's caregiver states that the only reason today is for the replacement of his Flores catheter and after the Flores catheter was replaced the patient and the caregiver left prior to discharge Patient was discharged and educated to follow-up with primary care provider in the next 24 to 48 hours and return to the emergency room for any evidence of worsening signs or symptoms Patient data External records reviewed:: [facility] previous records Clinical information provided by:: patient Social determinants that could affect healthcare access:: none Patient has the following chronic illnesses:: BPH How is presenting disease/condition affected by chronic disease/condition?: exacerbated by Evaluation data The following diagnostics were reviewed and interpreted by me:: lab results and radiology exam(s) Lab and/or radiology exams considered but not ordered:: Labs radiology exams considered and ordered Interpretation Summary: N/A Medications / Prescriptions Medications or Prescriptions considered but not ordered:: No medication given Medication administrations:: No medication given Consultations Consultation(s) initiated? (list below): No Diagnosis Urogenital Male Differential Diagnosis: urinary tract infection, acute retention of urine and other (Encounter for replacement of Flores catheter) Most likely diagnosis given after review of the tests above:: Encounter for replacement of Flores catheter Admission Indicated Admission indicated?: not indicated Admission Request Was there a request for admission?: No Disposition Plan Disposition Plan: Discharge Discharge Attestation Discharge Attestation: The patient and all family members were given an opportunity to ask questions and understood the discharge instructions. Discharge instructions specifically effects, indications for sooner follow up or return to the emergency department, and the expected course of current diagnosis. Patient condition: Stable Discharge Plan Plan Patient Disposition: HOME (Self Care) Discharge Disposition comment: Stable Prescriptions/Referrals Prescriptions/Med Rec: No Action cyanocobalamin (vitamin B-12) 500 mcg Tablet 1,000 mcg PO QDAY levothyroxine 50 mcg Tablet 50 mcg PO QDAY folic acid 1 mg Tablet 1 mg PO QDAY amlodipine 5 mg tablet 5 mg PO QMORNING Eliquis DVT-PE Treat 30D Start 5 mg (74 tabs) tablets,dose pack 5 mg PO BID Qty: 74 0RF hydralazine 25 mg tablet 25 mg PO BID Qty: 30 0RF atorvastatin 40 mg tablet 40 mg PO HS Qty: 30 0RF furosemide [Lasix] 20 mg tablet 20 mg PO QDAY Qty: 30 0RF tamsulosin 0.4 mg capsule 0.4 mg PO 1XD nitrofurantoin macrocrystal 50 mg capsule 50 mg 1XD Patient Comments: TAKE 1 CAPSULE BY MOUTH NIGHTLY AT BEDTIME donepezil 5 mg tablet 5 mg 1XD Patient Comments: TAKE 1 TABLET BY MOUTH EVERY DAY AT BEDTIME FOR 90 DAYS potassium chloride 8 mEq capsule, extended release 8 meq 1XD Patient Comments: TAKE 1 CAPSULE BY MOUTH EVERY DAY ciprofloxacin HCl 500 mg tablet 500 mg PO BID Qty: 5 0RF ciprofloxacin HCl 500 mg tablet 500 mg PO BID Qty: 10 0RF Referrals: Mary Kate Valladares MD [Primary Care Provider, Family Practice] - In 1 week Problem List Clinical Impression: Encounter for Flores catheter replacement Patient/Caregiver Discharge Instructions Additional Instructions: Please follow-up with your urologist in the next 24 to 48 hours Your Flores catheter was replaced with no complications For any evidence of worsening signs or symptoms return to the emergency room immediately Print Language: Ugandan Stand Alone Forms: Faby Award Info., Work/School Release, Patient Portal Info Letter
== END 2025-06-23 12:55 | disposition home or self-care (01) ==
PROVIDERS: Emergency Provider Nurse Practitioner Family; PCP Family Medicine
DX: Z46.6 Encounter for fitting and adjustment of urinary device (principal); N40.0 Benign prostatic hyperplasia without lower urinary tract symptoms
CPT/HCPCS: 51702; 99282; A4314

== ENCOUNTER → 2025-06-23 | Outpatient (CLI) | payer MEDICARE, BC, OTHER, SELFPAY ==
[2025-06-23 14:31] LABS: Collection Type, Urine Clean Catch; RBC,Urine 0 /hpf (0-3); Squamous Epithelial Cell,Urine 0 /hpf (0-5)
[2025-06-23 15:53] LABS: Bilirubin,Urine Negative (Negative); Blood,Urine Negative (Negative); Clarity,Urine Clear (Clear/Hazy); Color,Urine Yellow (Lt Yel-Yel); Glucose, Urine Negative (Negative); Ketones,Urine Negative (Negative); Leukocyte Esterase,Urine Positive (Negative); Nitrite,Urine Negative (Negative); PH,Urine 5.5 (5.0-7.0); Protein,Urine Trace (Neg - Trace); Specific Gravity,Urine 1.021 (1.001-1.035); Urobilinogen,Urine Negative mg/dL (0.0-1.0); WBC,Urine 1 /hpf (0-5)
== END | disposition home or self-care (01) ==
PROVIDERS: PCP Family Medicine; Referring Provider Family Medicine; Visit Provider Family Medicine
DX: N39.0 Urinary tract infection, site not specified (principal)
CPT/HCPCS: 81001; 87077; 87086; 87186